=== PATIENT | male | born 1985 | race Caucasian/White ===

== ENCOUNTER 2018-01-03 09:36 | Emergency (ER) | payer OTHER, SELFPAY ==
[2018-01-03 09:39] VITALS: BP 153/91; PULSE 85; RESP 14; TEMP 36.3; O2SAT 98
--- NOTE | 2018-01-03 10:21 | W.ED.GENAD ---
Discharge Plan Disposition Patient Disposition: HOME Condition: Stable Discharge Details Chief Complaint: RespSymp Clinical Impression: Sinusitis, acute Primary Care Provider: Eric Dumont ED Provider: Abdifatah Aly Home Meds and New Rx's Prescriptions: New amoxicillin-pot clavulanate 875-125 mg tablet 1 tab PO BID Qty: 14 RF: 0 Continue acetaminophen [Acetaminophen Extra Strength] 500 MG tablet 500 mg PO Q6H PRN PRNRF: 0 fluoxetine 10 MG capsule 20 mg PO BID RF: 0 Discharge Instructions Instructions: Sinusitis (ED) Additional Instructions: Feel free to return to the emergency department for any new or worsening symptoms otherwise continue to take your iczt-nbd-nbforex cough cold and sinus medication. It is recommended that you begin the antibiotic only if you have persistent symptoms for a total of 10 days and begin running a new fever. Otherwise this is more than likely a viral infection and antibiotics will not treat your symptoms. Also it is recommended that you follow-up with your primary care provider in the next couple weeks for reassessment if you continue to have symptoms Referrals: Eric Dumont [Primary Care Provider] - (If not improving over the next 2-week) Discharge Data Discharge Date/Time-TO BE ENTERED AT DEPARTURE: 01/03/18 10:35 Medical Decision Making Patient presenting to the emergency department for chief complaint of sinus infection. Patient reports that he has had significant and worsening sinus pressure on the left side for the last 3 days. Patient denies any fever or chills. Patient reports previous sinus surgery due to recurrent sinus infections and that he always gets an antibiotic for this from his primary care doctor but he is recently moved back to the area and does not have a local PCP. Patient does state headaches along with the sinus pressure and that he has tried pkve-xdi-ehvkxcz pain medication. Patient is concerned due to having coworkers currently out of work and being unable to miss any work. Physical exam does show left sinus tenderness but no other worrisome exam findings are noted and patient is afebrile. Did discuss with patient etiology of viral illness which I suspect but patient stated severe concerned about missing work. I did inform patient that I was willing to write a pocket prescription for Augmentin but that he should not begin this until he has had symptoms for at least 10 days and if he begins running a fever. Patient was agreeable to this plan so that he would not have to miss any work to be reevaluated. Did offer to place patient on care management list for local primary care provider but he stated he would take care of this in the next couple weeks himself or see his primary care provider that he previously had. After discussion of diagnosis and plan of care patient is no further needs, questions, or concerns and states clear understanding to return to the emergency department for any worsening symptoms. HPI General Mode of arrival: ambulatory. Date/Time Provider Initiated Documentation: 01/03/18 10:00. Limitations to Documentation: no limitations. Information obtained by: patient and RN notes reviewed. History of Present Illness 32 year old M presents to the emergency department with the chief complaint of Sinus infection, described as moderate, with intensity rated at 6. Quality is described as aching and other (Pressure), and is localized to the head. Patient reports radiation to (Left). Patient started experiencing this day(s) (3) and it has been constant. No relieving factors improve symptom(s),3 No exacerbating factors reported . Patient did receive the following treatments prior to arrival, other (Oxth-dbc-bgcafzb medication) Related Data Home Medications Medication Instructions Recorded Confirmed acetaminophen [Acetaminophen Extra 500 mg PO Q6H PRN PRN 01/04/13 01/03/18 Strength] fluoxetine 20 mg PO BID 01/04/13 01/03/18 amoxicillin-pot clavulanate 1 tab PO BID #14 tab 01/03/18 Previous Rx's Medication Instructions Recorded amoxicillin-pot clavulanate 1 tab PO BID #14 tab 01/03/18 Allergies Allergy/AdvReac Type Severity Reaction Status Date / Time No Known Allergies Allergy Unverified 01/03/18 09:43 General Stated Complaint: RespSymp MARIETTA: 4 Review of Systems Constitutional Denies body ache(s), Denies chills, Denies fever(s), Reports headache(s) and Denies malaise Eyes Denies eye discharge ENT Denies ear discharge, Denies otalgia, Reports headache(s), Reports nasal congestion, Reports nasal discharge, Denies neck pain, Reports sinus pain, Reports sinus pressure, Denies sore throat and Denies throat swelling Cardiovascular Denies chest pain and Denies dyspnea Respiratory Reports cough and Denies dyspnea Musculoskeletal Denies joint swelling and Denies neck pain Integumentary/Breasts Denies rash Neurologic Reports headache(s) Allergic/Immunologic Denies throat swelling PFSH Medical History Recurrent sinusitis (Acute) Social History Smoking/Tobacco Use Status: Current every day Surgical History History of rhinoplasty (Acute) Exam Const General: cooperative, comfortable and no acute distress Orientation: alert and awake HENCO Head: normal to inspection, normocephalic and atraumatic Ears: hearing grossly normal bilaterally and TM's normal bilaterally General nose exam: external nose normal Face and sinus: face symmetric, no erythema and sinus tenderness frontal and maxillary Mouth: oral mucosae normal, no drooling, no muffled voice and no trismus Throat: posterior oropharynx normal Neck Neck: normal visual inspection, full ROM, no lymphadenopathy, no meningeal signs, trachea midline and supple Resp Effort & Inspection: normal respiratory effort, able to speak in complete sentences and no cough Auscultation: clear to auscultation bilaterally Cardio Rate: regular rate Rhythm: regular rhythm Heart Sounds: S1 normal, S2 normal, normal S1 and S2, no click, no gallops, no murmurs and no rubs Skin General skin exam: no rashes or lesions noted and dry skin (warm) Neuro General: alert, awake, oriented x3, gait normal and moves all extremities Cognition: normal cognition Speech: speech normal Course Vital Signs Temperature 36.3 C L 01/03/18 09:39 Pulse 85 01/03/18 09:39 Respiratory Rate 14 01/03/18 09:39 Blood Pressure 153/91 H 01/03/18 09:39 Pulse Oximetry 98 01/03/18 09:39 Temperature 36.3 C L 01/03/18 09:39 Temperature Source Temporal Artery Scan 01/03/18 09:39 Pulse 85 01/03/18 09:39 Respiratory Rate 14 01/03/18 09:39 Respiratory Effort Non-Labored 01/03/18 09:43 Respiratory Depth Normal 01/03/18 09:43 Blood Pressure 153/91 H 01/03/18 09:39 Blood Pressure Position Sitting 01/03/18 09:39 Pulse Oximetry 98 01/03/18 09:39 Oxygen Delivery Method Room Air 01/03/18 09:39 Oxygen Flow Rate 0 01/03/18 09:39 Pain Level 6 01/03/18 09:39
--- NOTE | 2018-01-03 10:29 | ED.GENADUL_ITS ---
Discharge Plan Disposition Patient Disposition: HOME Condition: Stable Discharge Details Chief Complaint: RespSymp Clinical Impression: Sinusitis, acute Primary Care Provider: Eric Dumont ED Provider: Abdifatah Aly Home Meds and New Rx's Prescriptions: New amoxicillin-pot clavulanate 875-125 mg tablet 1 tab PO BID Qty: 14 RF: 0 Continue acetaminophen [Acetaminophen Extra Strength] 500 MG tablet 500 mg PO Q6H PRN PRNRF: 0 fluoxetine 10 MG capsule 20 mg PO BID RF: 0 Discharge Instructions Instructions: Sinusitis (ED) Additional Instructions: Feel free to return to the emergency department for any new or worsening symptoms otherwise continue to take your rsgq-jdv-[id number] cough cold and sinus medication. It is recommended that you begin the antibiotic only if you have persistent symptoms for a total of 10 days and begin running a new fever. Otherwise this is more than likely a viral infection and antibiotics will not treat your symptoms. Also it is recommended that you follow-up with your primary care provider in the next couple weeks for reassessment if you continue to have symptoms Referrals: Eric Dumont [Primary Care Provider] - (If not improving over the next 2-week ) Discharge Data Discharge Date/Time-TO BE ENTERED AT DEPARTURE: 01/03/18 10:35 Medical Decision Making Patient presenting to the emergency department for chief complaint of sinus infection. Patient reports that he has had significant and worsening sinus pressure on the left side for the last 3 days. Patient denies any fever or chills. Patient reports previous sinus surgery due to recurrent sinus infections and that he always gets an antibiotic for this from his primary care doctor but he is recently moved back to the area and does not have a local PCP. Patient does state headaches along with the sinus pressure and that he has tried qtff-oub-dduoonr pain medication. Patient is concerned due to having coworkers currently out of work and being unable to miss any work. Physical exam does show left sinus tenderness but no other worrisome exam findings are noted and patient is afebrile. Did discuss with patient etiology of viral illness which I suspect but patient stated severe concerned about missing work. I did inform patient that I was willing to write a pocket prescription for Augmentin but that he should not begin this until he has had symptoms for at least 10 days and if he begins running a fever. Patient was agreeable to this plan so that he would not have to miss any work to be reevaluated. Did offer to place patient on care management list for local primary care provider but he stated he would take care of this in the next couple weeks himself or see his primary care provider that he previously had. After discussion of diagnosis and plan of care patient is no further needs, questions, or concerns and states clear understanding to return to the emergency department for any worsening symptoms. HPI General Mode of arrival: ambulatory . Date/Time Provider Initiated Documentation: 01/03/18 10:00 . Limitations to Documentation: no limitations . Information obtained by: patient and RN notes reviewed . History of Present Illness 32 year old M presents to the emergency department with the chief complaint of Sinus infection, described as moderate, with intensity rated at 6. Quality is described as aching and other (Pressure), and is localized to the head. Patient reports radiation to (Left). Patient started experiencing this day(s) (3) and it has been constant. No relieving factors improve symptom(s), 3 No exacerbating factors reported . Patient did receive the following treatments prior to arrival, other (Tkgg-wpp-zlocipn medication) Related Data Home Medications Medication Instructions Recorded Confirmed acetaminophen [Acetaminophen Extra 500 mg PO Q6H PRN PRN 01/04/13 01/03/18 Strength] fluoxetine 20 mg PO BID 01/04/13 01/03/18 amoxicillin-pot clavulanate 1 tab PO BID #14 tab 01/03/18 Previous Rx's Medication Instructions Recorded amoxicillin-pot clavulanate 1 tab PO BID #14 tab 01/03/18 Allergies Allergy/AdvReac Type Severity Reaction Status Date / Time No Known Allergies Allergy Unverified 01/03/18 09:43 General Stated Complaint: RespSymp [place]: 4 Review of Systems Constitutional Denies body ache(s), Denies chills, Denies fever(s), Reports headache(s) and Denies malaise Eyes Denies eye discharge ENT Denies ear discharge, Denies otalgia, Reports headache(s), Reports nasal congestion, Reports nasal discharge, Denies neck pain, Reports sinus pain, Reports sinus pressure, Denies sore throat and Denies throat swelling Cardiovascular Denies chest pain and Denies dyspnea Respiratory Reports cough and Denies dyspnea Musculoskeletal Denies joint swelling and Denies neck pain Integumentary/Breasts Denies rash Neurologic Reports headache(s) Allergic/Immunologic Denies throat swelling PFSH Medical History Recurrent sinusitis (Acute) Social History Smoking/Tobacco Use Status: Current every day Surgical History History of rhinoplasty (Acute) Exam Const General: cooperative, comfortable and no acute distress Orientation: alert and awake HENPA Head: normal to inspection, normocephalic and atraumatic Ears: hearing grossly normal bilaterally and TM's normal bilaterally General nose exam: external nose normal Face and sinus: face symmetric, no erythema and sinus tenderness frontal and maxillary Mouth: oral mucosae normal, no drooling, no muffled voice and no trismus Throat: posterior oropharynx normal Neck Neck: normal visual inspection, full ROM, no lymphadenopathy, no meningeal signs , trachea midline and supple Resp Effort & Inspection: normal respiratory effort, able to speak in complete sentences and no cough Auscultation: clear to auscultation bilaterally Cardio Rate: regular rate Rhythm: regular rhythm Heart Sounds: S1 normal, S2 normal, normal S1 and S2, no click, no gallops, no murmurs and no rubs Skin General skin exam: no rashes or lesions noted and dry skin (warm) Neuro General: alert, awake, oriented x3, gait normal and moves all extremities Cognition: normal cognition Speech: speech normal Course Vital Signs Temperature 36.3 C L 01/03/18 09:39 Pulse 85 01/03/18 09:39 Respiratory Rate 14 01/03/18 09:39 Blood Pressure 153/91 H 01/03/18 09:39 Pulse Oximetry 98 01/03/18 09:39 Temperature 36.3 C L 01/03/18 09:39 Temperature Source Temporal Artery Scan 01/03/18 09:39 Pulse 85 01/03/18 09:39 Respiratory Rate 14 01/03/18 09:39 Respiratory Effort Non-Labored 01/03/18 09:43 Respiratory Depth Normal 01/03/18 09:43 Blood Pressure 153/91 H 01/03/18 09:39 Blood Pressure Position Sitting 01/03/18 09:39 Pulse Oximetry 98 01/03/18 09:39 Oxygen Delivery Method Room Air 01/03/18 09:39 Oxygen Flow Rate 0 01/03/18 09:39 Pain Level 6 01/03/18 09:39
== END 2018-01-03 10:35 | disposition home or self-care (01) ==
LOC: ER 10:39
PROVIDERS: Emergency Provider Nurse Practitioner Family; PCP Neuromusculoskeletal Medicine & OMM
DX: J01.90 Acute sinusitis, unspecified (principal)
CPT/HCPCS: 99283

== ENCOUNTER 2018-06-08 17:07 | Emergency (ER) | payer BC, SELFPAY ==
[2018-06-08 17:13] VITALS: PULSE 75; RESP 18; TEMP 36.7; O2SAT 96
--- NOTE | 2018-06-08 17:27 | ED.GENADUL_ITS ---
Discharge Plan Disposition Patient Disposition: HOME Condition: Improving Discharge Details Chief Complaint: RespSymp Clinical Impression: Acute right otitis media Primary Care Provider: Eric Dumont ED Provider: Carlos Zheng Home Meds and New Rx's Prescriptions: New cefdinir 300 mg capsule 300 mg PO Q12H 10 Days Qty: 20 RF: 0 guaifenesin [Mucinex] 600 mg tablet extended release 12hr 600 mg PO Q12H PRNQty: 10 RF: 0 Continued acetaminophen [Acetaminophen Extra Strength] 500 MG tablet 500 mg PO Q6H PRN PRNRF: 0 fluoxetine 10 MG capsule 20 mg PO BID RF: 0 Discontinued amoxicillin-pot clavulanate 875-125 mg tablet 1 tab PO BID Qty: 14 RF: 0 Discharge Instructions Instructions: Otitis Media (ED) Additional Instructions: Continue Tylenol and/or ibuprofen as needed for pain. Benadryl at nighttime to aid in decongestion. Take Mucinex and antibiotic as prescribed. Follow-up with regular doctor if not improving in 1 week's time. Return for any acute concern Medical Decision Making 33-year-old male presents from home complaining of 10 days of cough, congestion, right ear pain, persistent production of yellow and green sputum with associated sinus pressure similar to previous sinus infections. He is on day 7 of a course of Augmentin with minimal improvement. He is afebrile and well-appearing. Exam is consistent with right otitis media and maxillary sinusitis. Will switch to cephalosporin. Patient will continue decongestion. He will prescribe Mucinex as well. He stable and appropriate for outpatient management. HPI General Mode of arrival: ambulatory . Date/Time Provider Initiated Documentation: 06/08/18 17:17 . Limitations to Documentation: no limitations . Information obtained by: patient . History of Present Illness 33 year old M presents to the emergency department with the chief complaint of Sinus pressure, right ear pain, productive cough, described as moderate and similar to prior episodes, Quality is described as dull and constant, and is localized to the head. Patient reports no radiation. Patient started experiencing this day(s) and it has been constant. No relieving factors improve symptom(s), No exacerbating factors reported . Patient notes denies fever/chills. Patient did receive the following treatments prior to arrival, other (Finished 7 days of Augmentin) Related Data Home Medications Medication Instructions Recorded Confirmed acetaminophen [Acetaminophen Extra 500 mg PO Q6H PRN PRN 01/04/13 06/08/18 Strength] fluoxetine 20 mg PO BID 01/04/13 06/08/18 cefdinir 300 mg PO Q12H 10 Days #20 cap 06/08/18 guaifenesin [Mucinex] 600 mg PO Q12H PRN #10 tab 06/08/18 Previous Rx's Medication Instructions Recorded cefdinir 300 mg PO Q12H 10 Days #20 cap 06/08/18 guaifenesin [Mucinex] 600 mg PO Q12H PRN #10 tab 06/08/18 Allergies Allergy/AdvReac Type Severity Reaction Status Date / Time No Known Allergies Allergy Unverified 01/03/18 09:43 General Stated Complaint: RespSymp [place]: 4 Review of Systems Review of Systems 6 systems reviewed and otherwise negative [facility] Medical History Recurrent sinusitis (Acute) Surgical History History of rhinoplasty (Acute) Social History Smoking and Tabacco status: Current every day Exam Narrative Exam Narrative: GEN: awake, alert, oriented 3. Pleasant, well groomed, interactive. HEAD: Normocephalic, atraumatic ENT: Mucous membranes moist, oropharynx unremarkable, External ear exam unremarkable. Right tympanic membrane distended and erythematous with loss of light reflex. Bilateral maxillary sinus tenderness to percussion EYES: PERRL, EOMI NECK: Full ROM, no ISSA, no menigismus CHEST/RESP: Nontender, clear to auscultation bilateral, no wheeze/rhonchi/rales CARDIOVASCULAR: RRR, no murmur, rub rex. 2+ Rad pulse bilateral ABDOMEN: Soft, nontender, no mass. +Bowel sounds EXT: Full ROM, no edema, no rash Neuro: Grossly normal neurologic exam, conversant, interactive. Psych: Speech fluent, thoughts congruent, affect normal Course Vital Signs Temperature 36.7 C 06/08/18 17:13 Pulse 75 06/08/18 17:13 Respiratory Rate 18 06/08/18 17:13 Pulse Oximetry 96 06/08/18 17:13 Temperature 36.7 C 06/08/18 17:13 Temperature Source Skin 06/08/18 17:13 Pulse 75 06/08/18 17:13 Respiratory Rate 18 06/08/18 17:13 Respiratory Effort Non-Labored 06/08/18 17:16 Blood Pressure Position Sitting 06/08/18 17:13 Pulse Oximetry 96 06/08/18 17:13 Oxygen Delivery Method Room Air 06/08/18 17:13 Oxygen Flow Rate 0 06/08/18 17:13 Pain Level 4 06/08/18 17:13
[2018-06-08 17:31] VITALS: BP 145/78; PULSE 75; RESP 18; TEMP 36.7; O2SAT 96
== END 2018-06-08 17:30 | disposition home or self-care (01) ==
PROVIDERS: Emergency Provider Emergency Medicine; PCP Neuromusculoskeletal Medicine & OMM
DX: H66.91 Otitis media, unspecified, right ear (principal); R05 Cough
CPT/HCPCS: 99283

== ENCOUNTER 2018-07-06 12:44 | Emergency (ER) | payer BC, SELFPAY ==
[2018-07-06 12:50] VITALS: BP 153/94; PULSE 72; RESP 16; TEMP 36.3; O2SAT 97
--- NOTE | 2018-07-06 13:12 | ED.GENADUL_ITS ---
Discharge Plan Disposition Patient Disposition: HOME Condition: Good Discharge Details Chief Complaint: GenMedical Clinical Impression: Hemorrhoids, internal Primary Care Provider: Eric Dumont ED Provider: Cleve Woods Home Meds and New Rx's Prescriptions: New docusate sodium [Colace] 100 mg capsule 100 mg PO BID Qty: 14 RF: 0 hydrocortisone [Anusol-HC] 2.5 % cream with perineal applicator 1 applic MA QD-BID PRN (Reason: hemorrhoids) Qty: 28.35 RF: 0 No Action fluoxetine 10 MG capsule 20 mg PO BID RF: 0 Discharge Instructions Instructions: Hemorrhoids (ED) Additional Instructions: Please take the medication as directed. Please perform a sitz bath as often as possible. Please take stool softeners to avoid any constipation. If you notice any worsening of the pain, swelling, fever, chills, please return immediately for reevaluation. If you notice any worsening of your symptoms, or any new symptoms such as vomiting, diarrhea, fever, chills, shortness of breath, chest pain, numbness, weakness, or fainting , please return immediately to the emergency department for reevaluation. Please follow up with your primary care provider as soon as possible for reassessment and reevaluation. As always, it was a pleasure participating in your medical care today. Referrals: Eric Dumont [Primary Care Provider] - Medical Decision Making This is a 33-year-old male with no significant past medical history who presents for evaluation of rectal pain. Pain is been present for the last 3-4 days, pain started with initially hard stools which have now become loose. Pain radiates slightly into the abdomen. He denies any fever or chills. He notes a constant sensation of feeling like he has to defecate. He denies any red flags of rectal intercourse, or rectal penetration. Physical exam demonst rates notable firmness on the right lateral aspect of the rectum extending up past the anal sphincter. No evidence of active discharge at this time. We will get a CT scan to rule out any fistula or extending rectal abscess. 2:[address] scan results have returned and demonstrate no evidence of acute process, or infection or abscess. Signs and symptoms are thus concerning for internal thrombosed hemorrhoid. Due to the depth I do not think surgical excision here in the ED is appropriate at this time, we will set up outpatient surgical management. Will recommend sitz baths, steroid cream, and close follow-up with surgery. I have extensively reviewed the treatment plan and discharge instructions with the patient. I have addressed all patient concerns at this time. The patient was made aware of what symptoms to monitor for that would warrant a return to the emergency department. Discussed the plan with the patient, they demonstrate verbal understanding and agreement with our assessment and plan at this time. HPI General Date/Time Provider Initiated Documentation: 07/06/18 13:00 . HPI Narrative: This is a 33-year-old male who presents for chief complaint of pain in my taint patient states that for the last 4 days he has had rectal pain, he initially had a hard stool, but now his stool has become somewhat loose. Physical feeling like he has to have a bowel movement. He denies any fever or chills. The pain radiates into his abdomen. He denies any vomiting or diarrhea. He denies any other complaints. He denies having had history of symptoms like this in the past. Sexual orientation is heterosexual, he denies any rectal intercourse, he denies any penetration of his rectum. No other complaints at this time. No other modifying factors Related Data Home Medications Medication Instructions Recorded Confirmed fluoxetine 20 mg PO BID 01/04/13 07/06/18 docusate sodium [Colace] 100 mg PO BID #14 cap 07/06/18 hydrocortisone [Anusol-HC] 1 applic MA QD-BID PRN #28.35 gm 07/06/18 Previous Rx's Medication Instructions Recorded docusate sodium [Colace] 100 mg PO BID #14 cap 07/06/18 hydrocortisone [Anusol-HC] 1 applic MA QD-BID PRN #28.35 gm 07/06/18 Allergies Allergy/AdvReac Type Severity Reaction Status Date / Time No Known Allergies Allergy Unverified 01/03/18 09:43 General Stated Complaint: GenMedical [place]: 3 Review of Systems Review of Systems All systems reviewed & are unremarkable except as noted in HPI and below PFSH Social History Smoking/Tobacco Use Status: Current every day Alcohol Intake: current Alcohol Intake frequency: a few times a week Drug use: Never Do you feel safe at home: Yes Do you feel safe in your relationship?: Yes Exam Narrative Exam Narrative: 1.Const: Well-nourished, Well-developed, appearing stated age 2.Eyes: PERRL, no conjunctival injection, and symmetrical lids. 3.ENT: Atraumatic external nose and ears. Moist MM. Neck: Symmetric, trachea midline, No thyromegaly. 4.CVS: +S1/S2, No murmurs or gallops. Peripheral pulses 2+ and equal in all extremities. Brisk capillary refill in all extremities. 5.RESP: Unlabored respiratory effort. Clear to auscultation bilaterally. No wheezes rales or rhonchi 6.GI: Soft, Nontender/Nondistended, No hepatosplenomegaly. No guarding or rebound. Rectal exam demonstrates mild to moderate tenderness at the it extends past the anal sphincter. No evidence of discharge or drainage. 7.MSK: Normocephalic/Atraumatic, Extremities w/o deformity or ttp No cyanosis or clubbing, Normal movement of all extremities 8.Skin: Warm, Dry. No rashes or lesions. 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 Sensation grossly intact, no focal neurologic deficits. 10.Psych: (AAO) x3. Appropriate mood and affect Course Vital Signs Temperature 36.3 C L 07/06/18 12:50 Pulse 72 07/06/18 12:50 Respiratory Rate 16 07/06/18 12:50 Blood Pressure 153/94 H 07/06/18 12:50 Pulse Oximetry 97 07/06/18 12:50 Temperature 36.3 C L 07/06/18 12:50 Temperature Source Skin 07/06/18 12:50 Pulse 72 07/06/18 12:50 Respiratory Rate 16 07/06/18 12:50 Respiratory Effort Non-Labored 07/06/18 12:57 Blood Pressure 153/94 H 07/06/18 12:50 Blood Pressure Position Sitting 07/06/18 12:50 Pulse Oximetry 97 07/06/18 12:50 Oxygen Delivery Method Room Air 07/06/18 12:50 Oxygen Flow Rate 0 07/06/18 12:50 Pain Level 6 07/06/18 12:50
[2018-07-06 13:19] LABS: Bilirubin Negative (Negative); Blood Negative (Negative); Clarity Clear; Glucose Negative (Negative); Ketones Negative (Negative); Leukocyte Esterase Negative (Negative); Nitrite Negative (Negative); Specific Gravity 1.025 (1.005-1.025); Urobilinogen 0.2 EU/dL (Up TO 0.2)
--- NOTE | 2018-07-06 13:51 | DI.CT_ITS ---
SYMPTOMS/DIAGNOSIS: RECTAL PAIN, ? RECTAL ABSCESS CT EXAMINATION OF THE ABDOMEN AND PELVIS: The study was carried out with an intravenous injection of 125 cc of Omnipaque 350. The lung bases are unremarkable. The liver, gallbladder, pancreas, spleen, kidneys and adrenals are unremarkable. There is no evidence of bowel obstruction. There is nothing to suggest an acute appendix. There is no evidence of diverticulosis or diverticulitis. There is nothing to suggest a rectal abscess. There is no evidence of free air or free fluid in the intraperitoneal space. The bladder is suboptimally distended. The reproductive organs as visualized appear intact. SUMMARY: No evidence of a rectal abscess. No acute abnormality is demonstrated.
[2018-07-06] MEDS: Omnipaque 350 MG/ML 50 ML BTL IJ (13:55)
[2018-07-06] MEDS: Omnipaque 350 MG/ML 100 ML BTL IJ (13:55)
[2018-07-06 14:05] LABS: Abs Immature Grans 0.01 k/cumm (0.0-0.09); Absolute Basophil Count 0.02 k/cumm (0.0-0.2); Absolute Eosinophil Count 0.05 k/cumm (0.0-0.7); Absolute Lymphocyte Count 1.72 k/cumm (1.2-3.4); Absolute Monocyte Count 0.43 k/cumm (0.11-0.7); Absolute Neutrophil Count 4.77 k/cumm (1.2-6.7); Basophils % 0.3; Eosinophils % 0.7; HCT 43.2 % (40.0-50.0); HGB 14.9 g/dL (13.5-17.5); Immature Grans % 0.1; Lymphocytes % 24.6; Mean Corp. HGB Concentration 34.5 g/dL (32.0-36.0); Mean Corpuscular Hemoglobin 28.1 pg (27.0-33.0); Mean Corpuscular Volume 81.5 fL (80-95); Mean Platelet Volume 11.6 fL (8.0-11.0); Monocytes % 6.1; Neutrophils % 68.2; Platelet Count 191 x1000/uL (130-400); RBC Distribution Width 13.6 % (11.8-14.1)
[2018-07-06 14:22] VITALS: RESP 16
[2018-07-06 14:47] VITALS: BP 153/94; PULSE 72; RESP 16; TEMP 36.6; O2SAT 97
[2018-07-06 15:02] LABS: ALT 34 U/L (12-78); AST 20 U/L (15-37); Albumin 3.9 g/dL (3.4-5.0); Alkaline Phosphatase 78 U/L (46-116); Anion Gap 11.4 mmol/L (3-11); BUN 13 mg/dL (7-18); Bilirubin, Total 0.5 mg/dL (0.2-1.0); CO2 25.6 mmol/L (21.0-32.0); CREATININE 0.77 mg/dL (0.70-1.30); Chloride 104 mmol/L (98-107); Glucose 85 mg/dL (70-100); Potassium 4.1 mmol/L (3.5-5.1); Sodium 141 mmol/L (136-145); Total Protein 7.3 g/dL (6.4-8.2)
[2018-07-06 15:30] LABS: Calcium 8.6 mg/dL (8.5-10.1)
--- NOTE | 2018-07-07 10:30 | PDOC.ERCMPRO ---
Care Management Progress Note 07/07-Dr. Woods requested assistance with a surgical f/u in 1-2 weeks for hemorrhoid. Referral faxed to [facility] this am.
--- NOTE | 2018-07-07 10:31 | CMPROGNOTE_ITS ---
Care Management Progress Note 07/07-Dr. Woods requested assistance with a surgical f/u in 1-2 weeks for hemorrhoid. Referral faxed to [facility] this am.
== END 2018-07-06 14:46 | disposition home or self-care (01) ==
PROVIDERS: Emergency Provider Student in an Organized Health Care Education/Training Program; PCP Neuromusculoskeletal Medicine & OMM
DX: K64.8 Other hemorrhoids (principal)
CPT/HCPCS: 36415; 80053; 99285; 74177; 81003; 85025; 99284; J3490; Q9967

== ENCOUNTER 2019-03-24 10:37 | Emergency (ER) | payer OTHER, SELFPAY ==
[2019-03-24 10:43] VITALS: BP 152/97; PULSE 72; RESP 16; TEMP 36.5; O2SAT 96
--- NOTE | 2019-03-24 11:09 | W.ED.GENAD ---
Discharge Plan Disposition Patient Disposition: HOME Discharge Details Chief Complaint: Nk/Back Pain Clinical Impression: Acute lumbar myofascial strain Primary Care Provider: Eric Dumont ED Provider: Armando Aguillon Home Meds and New Rx's Prescriptions: New cyclobenzaprine 10 mg tablet 10 mg PO HS Qty: 10 RF: 0 No Action fluoxetine 10 MG capsule 60 mg PO HS RF: 0 bupropion HCl 100 mg Tablet Sustained-Release 12 Hr 100 mg PO HS RF: 0 Discharge Instructions Instructions: Low Back Strain (ED) Additional Instructions: You most likely have a muscle strain involving the lower back. Supportive care including ice and heat over the area as indicated. Start taking ibuprofen 200 m tabs every 8 hours for pain. Avoid heavy lifting with your back. Follow-up should your symptoms worsen or you develop severe numbness or tingling in the feet. Stand Alone Forms: Work Release Referrals: Eric Dumont [Primary Care Provider] - 1 week Medical Decision Making This is a nontoxic-appearing 34-year-old male presenting to the emergency department with left lower back pain. He does have some radiculopathy down his left leg. Straight leg raise negative. Neurovascular intact on physical exam. He does have noticeable tenderness over the paraspinal musculature of the left lower lumbar spine. No midline tenderness. Discussed supportive care along with the use of [id number] NSAIDs. Will send home with a prescription for cyclobenzaprine as he does describe some spasms in his low back.. Return precautions provided he will follow-up with his primary care provider if symptoms persist. HPI General Date/Time Provider Initiated Documentation: 03/24/19 11:09. HPI Narrative: Patient is a 34-year-old male with a significant for chronic back pain who presents to the emergency department for left lower back pain status post lifting injury while at work. He locates the pain along the lower left lumbar spine. He has had some tingling in his left foot associated with his pain. He denies any bowel or fecal incontinence. Taken anything for the pain. Related Data Home Medications Medication Instructions Recorded Confirmed fluoxetine 60 mg PO HS 01/04/13 03/24/19 bupropion HCl 100 mg PO HS 03/24/19 03/24/19 cyclobenzaprine 10 mg PO HS #10 tab 03/24/19 Previous Rx's Medication Instructions Recorded cyclobenzaprine 10 mg PO HS #10 tab 03/24/19 Allergies Allergy/AdvReac Type Severity Reaction Status Date / Time No Known Allergies Allergy Unverified 03/24/19 10:57 General Stated Complaint: Nk/Back Pain [place]: 3 Review of Systems Gastrointestinal Gastrointestinal: Denies fecal incontinence Genitourinary Genitourinary: Denies urinary incontinence Musculoskeletal Musculoskeletal: Reports back pain, Denies numbness and Reports tingling Neurologic Neurologic: Denies numbness, Denies other visual disturbances, Denies sensory deficit, Reports tingling and Denies paresthesias Hematologic/Lymphatic Hematologic/Lymphatic: Denies easy bleeding and Denies easy bruising [facility] Medical History Internal thrombosed hemorrhoids (Acute) Recurrent sinusitis (Acute) Surgical History History of rhinoplasty (Acute) Social History Smoking/Tobacco Use Status: Current every day Alcohol Intake: current Alcohol Intake frequency: a few times a week Drug use: Never Do you feel safe at home: Yes Do you feel safe in your relationship?: Yes Exam Const General: cooperative, healthy appearing, comfortable and no acute distress Orientation: alert, awake and oriented x3 HENMT Head: normal to inspection Chest Chest: normal inspection of the chest Resp Effort & Inspection: normal respiratory effort and able to speak in complete sentences Cardio Pulses: normal peripheral pulses Back/Spine/Pelvis Thoracic/Lumbar Spine: pain with thoraco-lumbar ROM, paraspinal tenderness, thoraco-lumbar spasm, No thoracic spinal tenderness, No lumbar spinal tenderness and No straight leg raise positive Neuro Motor: muscle tone normal throughout Sensory Exam: no sensory deficits noted DTR's: Rt Patellar: 2+ and Lt Patellar: 2+ Course Vital Signs Vital signs: Vital Signs Temperature 36.5 C 03/24/19 10:43 Pulse 72 03/24/19 10:43 Respiratory Rate 16 03/24/19 10:43 Blood Pressure 152/97 H 03/24/19 10:43 Pulse Oximetry 96 03/24/19 10:43 Temperature 36.5 C 03/24/19 10:43 Temperature Source Temporal Artery Scan 03/24/19 10:43 Pulse 72 03/24/19 10:43 Respiratory Rate 16 03/24/19 10:43 Respiratory Effort Non-Labored 03/24/19 10:54 Blood Pressure 152/97 H 03/24/19 10:43 Blood Pressure Position Sitting 03/24/19 10:43 Pulse Oximetry 96 03/24/19 10:43 Oxygen Delivery Method Room Air 03/24/19 10:43 Oxygen Flow Rate 0 03/24/19 10:43 Pain Level 5 03/24/19 10:43 Comment 03/24/19 10:43
== END 2019-03-24 11:15 | disposition home or self-care (01) ==
PROVIDERS: Emergency Provider Physician Assistant; PCP Neuromusculoskeletal Medicine & OMM
DX: M54.5 Low back pain (principal); G89.29 Other chronic pain; S39.012A Strain of muscle, fascia and tendon of lower back, initial encounter; X50.0XXA Overexertion from strenuous movement or load, initial encounter; R20.2 Paresthesia of skin
CPT/HCPCS: 99283

== ENCOUNTER 2019-05-02 08:24 | Emergency (ER) | payer BC, SELFPAY ==
[2019-05-02 08:28] VITALS: BP 150/93; PULSE 87; RESP 18; TEMP 37.3; O2SAT 95
[2019-05-02 08:34] VITALS: RESP 18
--- NOTE | 2019-05-02 08:36 | ED.GENADUL_ITS ---
Discharge Plan Disposition Patient Disposition: HOME Condition: Stable Discharge Details Chief Complaint: GenMedical Clinical Impression: Sinusitis, Pharyngitis Primary Care Provider: Eric Dumont ED Provider: Jovita Bishop Home Meds and New Rx's Prescriptions: New amoxicillin-pot clavulanate [Augmentin] 875-125 mg tablet 1 tab PO BID 10 Days Qty: 20 RF: 0 prednisone 20 mg tablet 40 mg PO DAILY 3 Days Qty: 6 RF: 0 Continued fluoxetine 10 MG capsule 60 mg PO HS RF: 0 bupropion HCl 100 mg Tablet Sustained-Release 12 Hr 100 mg PO HS RF: 0 Discharge Instructions Instructions: Pharyngitis (ED), Sinusitis (ED) Additional Instructions: Alternate tylenol and motrin as needed and directed for pain. Drink plenty of fluids and get plenty of rest. Continue your saline nose spray, Colbert pot and humidifier as needed. Take the steroids until finished. If your symptoms do not improve or worsen over the next 2 days, you can start the antibiotics. Follow-up with your primary care doctor in 1 week. If your symptoms persist or worsen, consider follow-up with the Ear, Nose and Throat doctor. Return to the emergency department with any worsening or new concerning symptoms. Stand Alone Forms: Work Release Referrals: Peterson Langford MD [ [facility] STAFF PHYSICIAN] - Discharge Data Discharge Date/Time-TO BE ENTERED AT DEPARTURE: 05/02/19 10:29 Discharge Physician: Jovita Bishop Medical Decision Making 0845 -- 34-year-old male with a history of chronic sinus infections and septoplasty in 2012 presents with nasal congestion and sinus pain, periorbital headaches, sore throat, green blood-tinged nasal discharge and occasional blood- tinged mucus with cough for the past 3 weeks. States his sore throat is bothering him the most. He states it feels swollen when he swallows but he is able to keep down fluids and solids. He admits to occasional sweats but denies any known fever. He is a tobacco smoker. He states his headache is around his eyes and he occasionally has dizziness and feels off balance. He denies any significant cough but does admit to occasional shortness of breath. He does admit to blowing out dry blood-tinged mucus, which appears likely due to dry air at home. I suspect his intermittent blood-tinged mucus with cough is likely from the nares as he has clear lungs and does not complain of consistent shortness of breath. He has bilateral sinus tenderness with significant bilateral tonsillar edema but without exudates. Bilateral TMs appear erythematous but not dull or bulging. Differential diagnosis includes sinusitis, pharyngitis. Will obtain a rapid strep as well as a chest x-ray to rule out pneumonia. Presentation not consistent with tuberculosis or PE, patient denies any recent travel. Will give a dose of prednisone. He took Aleve prior to arrival. 909 --rapid strep negative. Chest x-ray negative. Discussed with patient that his symptoms could be due to sinusitis causing tonsillar edema from postnasal drainage. Advised that a throat culture was sent. Will treat with steroids to help with tonsillar edema and sinus inflammation. He was also given an antibiotic prescription as his symptoms have been lingering for a few weeks. He is advised that he could wait a few days to see if symptoms improve with steroids and then start antibiotics if no improvement. He was advised to follow-up with his primary care doctor for evaluation and for referral to ENT if symptoms persist. Usual and customary return precautions given prior to discharge. HPI General Mode of arrival: ambulatory . Date/Time Provider Initiated Documentation: 05/02/19 08:25 . Limitations to Documentation: no limitations . Information obtained by: patient . History of Present Illness 34 year old M presents to the emergency department with the chief complaint of Nasal congestion, sinus pain, sore throat, headache, described as moderate, and is localized to the head and face. Patient started experiencing this week(s) (3) and it has been constant. No relieving factors improve symptom(s), No exacerbating factors reported . Patient notes cough (Occasionally coughs up blood-tinged sputum, but otherwise denies any significant cough), headaches (Frontal, around eyes) and shortness of breath (Intermittent); denies fever/chills and nausea/vomiting. Patient did receive the following treatments prior to arrival, NSAID (Aleve 1 hour prior to arrival) Related Data Home Medications Medication Instructions Recorded Confirmed fluoxetine 60 mg PO HS 01/04/13 05/02/19 bupropion HCl 100 mg PO HS 03/24/19 05/02/19 amoxicillin-pot clavulanate 1 tab PO BID 10 Days #20 tab 05/02/19 [Augmentin] prednisone 40 mg PO DAILY 3 Days #6 tab 05/02/19 Previous Rx's Medication Instructions Recorded amoxicillin-pot clavulanate 1 tab PO BID 10 Days #20 tab 05/02/19 [Augmentin] prednisone 40 mg PO DAILY 3 Days #6 tab 05/02/19 Allergies Allergy/AdvReac Type Severity Reaction Status Date / Time No Known Allergies Allergy Unverified 05/02/19 08:32 General Stated Complaint: GenMedical [place]: 3 Review of Systems All systems reviewed & are unremarkable except as noted in HPI and below Constitutional Constitutional: Reports as per HPI, Denies chills, Denies fever(s) and Reports headache(s) Eyes Eyes: Denies blurry vision ENT Ears, Nose, Mouth, and Throat: Reports dizziness (intermittent), Reports headache(s), Reports nasal congestion, Reports sore throat and Denies throat swelling Cardiovascular Cardiovascular: Denies chest pain and Denies dyspnea Respiratory Respiratory: Denies cough, Reports hemoptysis and Denies dyspnea Gastrointestinal Gastrointestinal: Denies abdominal pain, Denies diarrhea and Denies vomiting Genitourinary Genitourinary: Denies hematuria and Denies dysuria Musculoskeletal Musculoskeletal: Denies back pain and Denies numbness Integumentary/Breasts Skin/Breast: Denies lesions and Denies rash Neurologic Neurologic: Reports dizziness (intermittent), Reports headache(s), Denies focal weakness and Denies numbness Allergic/Immunologic Allergic/Immunologic: Denies throat swelling [facility] Medical History Internal thrombosed hemorrhoids (Acute) Recurrent sinusitis (Acute) Surgical History (Updated 05/02/19 @ 08:38 by Jovita Bishop DO) History of nasal septoplasty (Acute) Social History Smoking/Tobacco Use Status: Current every day Tobacco Type: cigarettes Alcohol Intake: current Alcohol Intake frequency: a few times a week Drug use: Never Substance use type: does not use Do you feel safe at home: Yes Do you feel safe in your relationship?: Yes Exam Const General: cooperative and healthy appearing Orientation: alert and awake HENMT Head: normal to inspection Ears: hearing grossly normal bilaterally, external ears normal and TM's normal bilaterally General nose exam: external nose normal Face and sinus: normal facial exam and sinus tenderness frontal (left ) and maxillary (bilateral) Mouth: oral mucosae normal Teeth and gingiva: dentition normal Throat: uvula midline and posterior oropharynx abnormal edema (significant b/l tonsillar edema, near touching); no exudates Eyes General: appearance normal, both eyes and all related structures Eyelids: eyelids normal Pupils: PERRL EOM: EOM intact bilaterally Neck Neck: normal visual inspection, no meningeal signs, trachea midline, supple, no anterior neck swelling and No submandibular swelling Lymphatic: no lymphadenopathy noted Chest Chest: normal inspection of the chest Resp Effort & Inspection: normal respiratory effort and able to speak in complete sentences Auscultation: clear to auscultation bilaterally Cardio Rate: regular rate Rhythm: regular rhythm GI Inspection: normal to inspection Palpation: soft, not firm, no guarding, no hepatosplenomegaly, no masses and nontender Auscultation: normal bowel sounds Skin General skin exam: no rashes or lesions noted Neuro General: alert and awake Cognition: normal cognition Speech: speech normal Gait: normal gait Motor: muscle tone normal throughout Sensory Exam: no sensory deficits noted Extrem General: normal to inspection, full ROM and normal capillary refill Psych Appearance: grossly normal Mental Status: mental status grossly normal Speech and Movement: speech and movement normal Affect: normal affect Thought Process: normal Course Vital Signs Vital signs: Vital Signs Pulse 87 05/02/19 08:28 Respiratory Rate 18 05/02/19 08:28 Blood Pressure 150/93 H 05/02/19 08:28 Pulse Oximetry 95 05/02/19 08:28 Pulse 87 05/02/19 08:28 Respiratory Rate 18 05/02/19 08:28 Blood Pressure 150/93 H 05/02/19 08:28 Pulse Oximetry 95 05/02/19 08:28 Oxygen Delivery Method Room Air 05/02/19 08:28 Oxygen Flow Rate 0 05/02/19 08:28 Pain Level 1 05/02/19 08:28
[2019-05-02] MEDS: predniSONE 20 MG TAB 60 MG PO (09:10)
--- NOTE | 2019-05-02 09:21 | DI.RAD_ITS ---
EXAM: XR CHEST 2V PA LATERAL INDICATION: cough with blood, r/o pneumonia. COMPARISON: No exams were available for comparison TECHNIQUE: 2D digital imaging was performed. FINDINGS: Heart size is normal. There is mild respiratory motion. The lungs are suboptimally inflated. No in filtrate or effusion is seen. IMPRESSION: Limited exam. No acute abnormality.
== END 2019-05-02 10:29 | disposition home or self-care (01) ==
PROVIDERS: Emergency Provider Physician Assistant; PCP Neuromusculoskeletal Medicine & OMM
DX: R51 Headache (principal); J02.9 Acute pharyngitis, unspecified; J01.90 Acute sinusitis, unspecified; R05 Cough; F17.210 Nicotine dependence, cigarettes, uncomplicated
CPT/HCPCS: 87880; 99283; 71046; 87081; 99284; J7512

== ENCOUNTER 2020-02-03 11:59 | Emergency (ER) | payer SELFPAY ==
[2020-02-03 12:03] VITALS: BP 138/83; PULSE 89; TEMP 34.6; O2SAT 96
--- NOTE | 2020-02-03 12:32 | W.ED.GENAD ---
Discharge Plan Disposition Patient Disposition: HOME Condition: Stable Discharge Details Clinical Impression: Abdominal pain Primary Care Provider: Eric Dumont ED Provider: Keven Johnson Home Meds and New Rx's Prescriptions: New ondansetron 4 mg tablet,disintegrating 4 mg PO Q8H PRN (Reason: nausea and vomiting) Qty: 30 RF: 0 Continued fluoxetine 10 MG capsule 60 mg PO HS RF: 0 Discharge Instructions Instructions: Abdominal Pain (ED) Additional Instructions: your blood work and cat scan did not show a clear etiology for your symptoms, there was no emergent or concerning findings seen on the CT or lab work follow up with your primary care provider if symptoms continue in a week if you have severe worsening pain, persistent vomit or feel more ill return to the emergency department Stand Alone Forms: Work Release Medical Decision Making 35 yo male with hx of prior appendectomy comes in with chief complaint of 2 weeks of right sided abdominal pain and n/v, last threw up this morning per patient. HE denies fevers but has had some sweats intermittently, no chest pain or dyspnea. He drinks occasionally otherwise no other drug use. Arrives HD stable with pain in the ruq without guarding or rebound, has some mid abdominal tenderness as well, no testicle pain or swelling. Could be biliary colic vs cholecystitis vs pancreatitis vs sbo, will obtain labs and imaging and reassess. pt remains stable, no guarding or rebound tenderness still. Labs unremarkable, ct shows nonspecific fat infiltrate of the pancreas and possible small areas of inflammation with normal lipase. Discussed findings with patient, no clear specific etiology for his symptoms but reassuring lab work and imaging. Is comfortable with d/c and f/u with pcp if symptoms continue and return precautions given Differential Diagnosis Differential Diagnosis: cholecystitis, biliary colic, sbo Medical Records Medical records reviewed: Yes I reviewed the patient's medical records. Imaging Data Radiologic Study: Attestation: I personally reviewed and interpreted this imaging study as follows: Imaging: CT Scan Radiologist's impression: per dr. gonzales has some inflammation/fatty infiltrate of pancreas Lab Data Lab results reviewed: Yes I reviewed the patient's lab results. HPI General Mode of arrival: ambulatory. Date/Time Provider Initiated Documentation: 02/03/20 12:05. Limitations to Documentation: no limitations. Information obtained by: patient. History of Present Illness 35 year old M presents to the emergency department with the chief complaint of abdominal pain, described as moderate, and it has been constant. No relieving factors improve symptom(s), No exacerbating factors reported . Patient notes nausea/vomiting. Related Data Home Medications Medication Instructions Recorded Confirmed fluoxetine 60 mg PO HS 01/04/13 02/03/20 ondansetron 4 mg PO Q8H PRN #30 tab 02/03/20 Previous Rx's Medication Instructions Recorded ondansetron 4 mg PO Q8H PRN #30 tab 02/03/20 Allergies Allergy/AdvReac Type Severity Reaction Status Date / Time No Known Allergies Allergy Unverified 02/03/20 12:08 General Stated Complaint: Abd Prob MARIETTA: 3 Review of Systems All systems reviewed & are unremarkable except as noted in HPI and below Constitutional Constitutional: Denies chills, Denies fever(s) and Denies weakness Cardiovascular Cardiovascular: Denies chest pain and Denies dyspnea Respiratory Respiratory: Denies cough and Denies dyspnea Genitourinary Genitourinary: Denies dysuria Musculoskeletal Musculoskeletal: Denies joint swelling Integumentary/Breasts Skin/Breast: Denies rash Neurologic Neurologic: Denies weakness Psychiatric Psychiatric: Denies depression [facility] Medical History (Updated 02/03/20 @ 13:11 by Keven Johnson MD) Internal thrombosed hemorrhoids Recurrent sinusitis Surgical History (Updated 05/02/19 @ 08:38 by Jovita Bishop DO) History of nasal septoplasty Social History Smoking/Tobacco Use Status: Current every day Tobacco Type: cigarettes Smoking risk assessment performed?: Yes Alcohol Intake: current Alcohol Intake frequency: a few times a week Drug use: Never Substance use type: does not use Do you feel safe at home: Yes Do you feel safe in your relationship?: Yes Exam Const General: no acute distress Orientation: alert HENMT Head: normal to inspection Ears: external ears normal General nose exam: external nose normal Mouth: moist mucous membranes Eyes General: appearance normal, both eyes and all related structures Neck Neck: normal visual inspection Resp Effort & Inspection: normal respiratory effort and able to speak in complete sentences Cardio Rate: regular rate GI Palpation: soft Skin General skin exam: no rashes or lesions noted Neuro General: patient alert and patient oriented x3 Extrem General: normal to inspection Psych Mental Status: mental status grossly normal Course Vital Signs Vital signs: Vital Signs Temperature 34.6 C L 02/03/20 12:03 Pulse 89 02/03/20 12:03 Blood Pressure 138/83 02/03/20 12:03 Pulse Oximetry 96 02/03/20 12:03 Temperature 34.6 C L 02/03/20 12:03 Temperature Source Temporal Artery Scan 02/03/20 12:03 Pulse 89 02/03/20 12:03 Respiratory Effort Non-Labored 02/03/20 12:09 Blood Pressure 138/83 02/03/20 12:03 Blood Pressure Position Sitting 02/03/20 12:03 Pulse Oximetry 96 02/03/20 12:03 Oxygen Delivery Method Room Air 02/03/20 12:03 Oxygen Flow Rate 0 02/03/20 12:03 Pain Level 4 02/03/20 12:03
[2020-02-03] MEDS: Normal Saline 1,000 ML 1000 ML IV (12:37)
[2020-02-03] MEDS: Ketorolac 15 MG/ML VIAL IVP (12:37)
[2020-02-03] MEDS: Ondansetron 4 MG/2 ML VIAL IVP (12:37)
[2020-02-03 12:39] LABS: Abs Immature Grans 0.02 10^3/uL (0.0-0.06); Absolute Basophil Count 0.03 10^3/uL (0.0-0.2); Absolute Eosinophil Count 0.13 10^3/uL (0.0-0.7); Absolute Lymphocyte Count 1.78 10^3/uL (1.2-3.4); Absolute Monocyte Count 0.47 10^3/uL (0.1-0.8); Absolute Neutrophil Count 4.27 10^3/uL (1.2-6.7); Basophils % 0.4; Eosinophils % 1.9; HCT 43.2 % (40.0-50.0); HGB 14.7 g/dL (13.5-17.5); Immature Grans % 0.3; Lymphocytes % 26.6; MCH 27.7 pg (27.0-33.0); MCV 81.4 fL (80-95); MPV 11.4 fL (8.0-11.0); Neutrophils % 63.8; Nucleated RBC 0 %; Platelet Count 183 10^3/uL (130-400); RBC 5.31 10^6/uL (4.36-5.78); RDW 12.4 % (11.8-14.1); RDW-SD 36.2 fL
[2020-02-03] MEDS: Omnipaque 350 MG/ML 100 ML BTL IJ (12:53)
--- NOTE | 2020-02-03 12:53 | DI.CT_ITS ---
EXAM: CT ABDOMEN PELVIS W CLINICAL HISTORY: n/v, right sided abdominal pain TECHNIQUE: COMPARISON: CT CT ABDOMEN PELVIS W from 07/06/2018 FINDINGS: CT examination of the abdomen and pelvis was performed with bolus infusion of 100 cc of Omnipaque 350 . Images obtained through the lung bases are unremarkable. The liver appears normal with no evidence of a focal mass. Spleen is unremarkable in appearance.. Gallbladder and bile ducts are unremarkable. There is a question of slight peripancreatic edema and minimal edema is also present in the mesentery in a nonspecific pattern. No focal small bowel pathology seen. Adrenals appear normal bilaterally. Kidneys appear normal with no evidence of renal mass, hydronephro sis, or nephrolithiasis There is no evidence of abdominal or pelvic adenopathy. Abdominal aorta is of normal diameter and no major vascular abnormality is seen. Appendix is normal. No evidence diverticulitis or bowel obstruction. No significant abdominal wall hernia seen. Impression: Question mild peripancreatic edema, please correlate with possibility of pancreatitis. Otherwise neg ative CT examination of the abdomen and pelvis. RADIATION DOSE DELIVERED: 1,368.79mGy.cm Total DLP 1,368.79mGy.cm Total DLP DATA REPOSITORY: All CT scans at this facility are submitted to the National Radiology Data Registry (NRDR) Dose Index Registry (DIR) with the [employer] ([employer]). RADIATION OPTIMIZATION: All CT scans at this facility use at least one of these dose optimization te chniques: automated exposure control; mA and/or kV adjustment per patient size (includes targeted exa ms where dose is matched to clinical indication); or iterative reconstruction.
[2020-02-03] MEDS: Normal Saline - Diluent 50 ML VIAL IV (12:54)
[2020-02-03] MEDS: Normal Saline Flush 10 ML SYR IVP (12:56)
[2020-02-03 12:57] LABS: ALT 48 U/L (16-63); AST 18 U/L (15-37); Albumin 3.8 g/dL (3.4-5.0); Alkaline Phosphatase 77 U/L (46-116); Anion Gap 8.5 mmol/L (3-11); BUN 16 mg/dL (7-18); Bilirubin, Direct 0.09 mg/dL (0.00-0.20); Bilirubin, Total 0.4 mg/dL (0.2-1.0); CO2 25.5 mmol/L (21.0-32.0); CREATININE 0.81 mg/dL (0.70-1.30); Calcium 8.5 mg/dL (8.5-10.1); Chloride 105 mmol/L (98-107); Glucose 100 mg/dL (74-106); Lipase 77 U/L (73-393); Potassium 3.9 mmol/L (3.5-5.1); Sodium 139 mmol/L (136-145); Total Protein 7.3 g/dL (6.4-8.2)
[2020-02-03 12:58] LABS: ETHANOL BLOOD < 3.0 mg/dL (<3)
== END 2020-02-03 13:20 | disposition home or self-care (01) ==
LOC: ER 13:16
PROVIDERS: Emergency Provider Emergency Medicine; PCP Neuromusculoskeletal Medicine & OMM
DX: R10.11 Right upper quadrant pain (principal); R11.2 Nausea with vomiting, unspecified; Z90.49 Acquired absence of other specified parts of digestive tract
CPT/HCPCS: 80053; 83690; 96361; 96374; 96375; 99284; 74177; 80320; 82248; 85025; J1885; J2405; J3490

== ENCOUNTER 2020-08-01 08:16 | Emergency (ER) | payer OTHER, SELFPAY ==
[2020-08-01 08:20] VITALS: BP 154/94; PULSE 90; RESP 16; TEMP 36.7; O2SAT 96
--- NOTE | 2020-08-01 08:30 | DI.CT_ITS ---
EXAM: CT HEAD FACIAL WO CLINICAL HISTORY: Head Injury positive LOC 48 hours ago, Left orbit. TECHNIQUE: Imaging Protocol: Axial computed tomography images with coronal and sagittal reformatted images were created and reviewed COMPARISON: CT HEAD WITHOUT CONTRAST from 06/15/2010 FINDINGS: BRAIN: There are no skull fractures nor fluid in the visualized paranasal sinuses. There is no evidence of intracranial hemorrhage, mass effect, or shift of midline structures. There are no extra-axial fluid collections. The ventricles are not enlarged or shifted and there is no blo od within the ventricular system nor within the basal cisterns. MAXILLOFACIAL CT SCAN: There is no evidence of facial fractures nor fluid in the visualized paranasal sinuses. Mild mucosal thickening is noted in the right maxillary and right sphenoid sinuses but no fluid levels therein. There is no evidence of orbital blowout fracture. IMPRESSION: No acute intracranial findings on this noninfused CT scan of the brain. No evidence of facial bone fractures nor orbital fractures. RADIATION DOSE DELIVERED: 1,827.4mGy.cm Total DLP DATA REPOSITORY: All CT scans at this facility are submitted to the National Radiology Data Registry (NRDR) Dose Index Registry (DIR) with the [employer] (ACR). RADIATION OPTIMIZATION: All CT scans at this facility use at least one of these dose optimization te chniques: automated exposure control; mA and/or kV adjustment per patient size (includes targeted exa ms where dose is matched to clinical indication); or iterative reconstruction.
--- NOTE | 2020-08-01 08:31 | ED.GENADUL_ITS ---
Discharge Plan Disposition Patient Disposition: HOME Condition: Stable Discharge Details Clinical Impression: Closed head injury with brief loss of consciousness, Concussion Primary Care Provider: Eric Dumont ED Provider: Rachel Dowling Home Meds and New Rx's Prescriptions: Continued fluoxetine 10 MG capsule 60 mg PO HS RF: 0 bupropion HCl 300 mg tablet extended release 24 hr 300 mg PO DAILY RF: 0 Discharge Instructions Instructions: Concussion (ED), Head Injury (ED) Additional Instructions: Follow up with primary care provider in 3-5 days. Return to ED sooner if any worsening pain, visual problems, vomiting, or concerns. Increase oral fluids. Please take Tylenol or Ibuprofen with food every 4-6 hours as needed for pain and swelling. Stand Alone Forms: Work Release Referrals: Eric Dumont [Primary Care Provider] - Medical Decision Making 35-year-old male presents to the ER chief complaint of left-sided face pain, headache and blurry vision status post a head injury with positive LOC approximately 48 hours prior to arrival. Patient states he was working on a car when a piece of the car he was working on weighing approximately 25 pounds fell hitting him on the left side of his face and head. He reports positive loss of consciousness for a few seconds. Since then he has had headache, blurry vision, and tinnitus which she reports is at his baseline. He denies any diplopia or double vision. He does also report some mild neck pain, no crepitus no step-off with palpation. He denies any vomiting, does endorse some nausea. He did not take any medications prior to arrival. He does have a past surgical history of nasal septoplasty recurrent sinusitis. He is a smoker. Denies any illicit drugs. Uncorrected visual acuity is 20/40 right eye, 20/70 on left eye, 20/25 bilateral per RN report. Patient reports she is wearing glasses but does not. CT head and facial without contrast ordered to rule out fracture or intracranial hemorrhage. Offered nausea and pain medications patient declined at this time. Differential diagnosis includes but not limited to sinus fracture, periorbital fracture, contusion, concussion, atypical migraine, subdural hematoma. EXAM: CT HEAD FACIAL WO CLINICAL HISTORY: Head Injury positive LOC 48 hours ago, Left orbit. TECHNIQUE: Imaging Protocol: Axial computed tomography images with coronal and sagittal reformatted images were created and reviewed COMPARISON: CT HEAD WITHOUT CONTRAST from 06/15/2010 FINDINGS: BRAIN: There are no skull fractures nor fluid in the visualized paranasal sinuses. There is no evidence of intracranial hemorrhage, mass effect, or shift of midline structures. There are no extra-axial fluid collections. The ventricles are not enlarged or shifted and there is no blood within the ventricular system nor within the basal cisterns. MAXILLOFACIAL CT SCAN: There is no evidence of facial fractures nor fluid in the visualized paranasal sinuses. Mild mucosal thickening is noted in the right maxillary and right sphenoid sinuses but no fluid levels therein. There is no evidence of orbital blowout fracture. IMPRESSION: No acute intracranial findings on this noninfused CT scan of the brain. No evidence of facial bone fractures nor orbital fractures. Discussed CT results with patient and home care who verbalizes understanding. Discussed return instructions including increased pain, visual disturbances, vomiting. This text was generated using [employer] system, please disregard any oddities of phrase or misspellings. HPI General Mode of arrival: ambulatory . Date/Time Provider Initiated Documentation: 08/01/20 08:24 . Limitations to Documentation: no limitations . Information obtained by: patient . HPI Narrative: 35-year-old male presents to the ER chief complaint of left-sided face pain, headache and blurry vision status post a head injury with positive LOC approximately 48 hours prior to arrival. Patient states he was working on a car when a piece of the car he was working on weighing approximately 25 pounds fell hitting him on the left side of his face and head. He reports positive loss of consciousness for a few seconds. Since then he has had headache, blurry vision, and tinnitus which she reports is at his baseline. He denies any diplopia or double vision. He does also report some mild neck pain, no crepitus no step-off with palpation. He de nies any vomiting, does endorse some nausea. He did not take any medications prior to arrival. He does have a past surgical history of nasal septoplasty recurrent sinusitis. He is a smoker. Denies any illicit drugs. Related Data Home Medications Medication Instructions Recorded Confirmed fluoxetine 60 mg PO HS 01/04/13 08/01/20 bupropion HCl 300 mg PO DAILY 08/01/20 08/01/20 Allergies Allergy/AdvReac Type Severity Reaction Status Date / Time No Known Allergies Allergy Unverified 08/01/20 08:24 General Stated Complaint: HeadInjury MARIETTA: 4 Review of Systems Narrative: Constitutional: Negative for weight loss, alert and oriented, well groomed, normal body habitus, appears comfortable. HEENT: Denies nasal discharge, sore throat, trouble swallowing. Previous head injury with positive LOC, reports left-sided face pain, left orbital pain, left eye blurry vision. And headache. Chest: Denies chest pain, palpitations, irregular rhythm, hypertension. Respiratory: Denies Shortness of breath, cough, hemoptysis. GI: Denies abdominal pain, vomiting, diarrhea, constipation. Positive nausea. : Denies dysuria, hematuria, flank pain, rectal bleeding. Neuro: Denies dizziness, weakness, syncope, or facial numbness. Hematologic: Denies easy bruising, intolerance to heat or cold, hair loss. [facility] Medical History Internal thrombosed hemorrhoids Recurrent sinusitis Surgical History History of nasal septoplasty Social History Smoking/Tobacco Use Status: Former Tobacco Use Quit Date: 06/04/20 Smoking risk assessment performed?: Yes Alcohol Intake: current Alcohol Intake frequency: a few times a week Drug use: Never Substance use type: does not use Do you feel safe at home: Yes Do you feel safe in your relationship?: Yes Exam Narrative Exam Narrative: Constitutional: Alert and oriented x3. Appears stated age. Normal body habitus. Head: Normocephalic, no trauma. Eyes: Pupils PERRLA, Red reflex noted, EOM's intact. Eyelids symmetrical without lesions, discharge, or swelling. ENT: Bilateral TM's WNL, no hemotympanum, external ear normal to inspection on left, right posterior external ear has a crusty sore to appears chronic, no mastoid TTP, swelling, or erythema, Nasal turbinates WNL, no nasal discharge. Tenderness with palpation to the left frontal and maxillary sinus, does have a small abrasion noted to left cheek. Normal dentition, Posterior pharynx WNL, no exudate. Chest: RRR, Normal S1, S2, distal pulses intact. Resp: Lungs clear to auscultation bilaterally, no wheezes, rales, or rhonchi. Musculoskeletal: Normal gait, 5/5 strength to all four extremities. Skin: No suspicious rashes or lesions. Capillary refill less than 2 sec. Neurologic: Cranial nerves II-XII intact. Alert and oriented x 3. DTR's intact. Hematologic/Lymphatic: No ecchymosis, no lymphadenopathy. [facility] Face images: 1. Abrasion Course Vital Signs Vital signs: Vital Signs Temperature 36.7 C 08/01/20 08:20 Pulse 90 08/01/20 08:20 Respiratory Rate 16 08/01/20 08:20 Blood Pressure 154/94 H 08/01/20 08:20 Pulse Oximetry 96 08/01/20 08:20 Temperature 36.7 C 08/01/20 08:20 Temperature Source Skin 08/01/20 08:20 Pulse 90 08/01/20 08:20 Respiratory Rate 16 08/01/20 08:20 Respiratory Effort 08/01/20 08:24 Respiratory Depth Normal 08/01/20 08:24 Respiratory Pattern Normal 08/01/20 08:24 Blood Pressure 154/94 H 08/01/20 08:20 Blood Pressure Position Sitting 08/01/20 08:20 Pulse Oximetry 96 08/01/20 08:20 Oxygen Delivery Method Room Air 08/01/20 08:20 Oxygen Flow Rate 0 08/01/20 08:20 Pain Level 6 08/01/20 08:20
--- OUTSIDE RECORDS SUMMARY | 2020-08-01 08:34 | XMS_ITS ---
:1985 Author Care Team Providers Name Role Phone BOLIVAR JAMES, DO Primary Care Provider Unavailable Allergies Code Code System Name Reaction Severity Status Onset NKDA ? Medications Name Status Start Date Stop Date ? ? amoxicillin 875 mg-potassium clavulanate 125 mg tablet Completed ? 02/07/2020 Take 1 tablet twice a day by oral route for 10 days. azithromycin 1 gram oral packet Completed ? 10/28/2018 1 single 1 gram dose bupropion HCl XL 150 mg 24 hr tablet, extended release Active ? Not available Take 1 tablet every day by oral route for 5 days. bupropion HCl XL 300 mg 24 hr tablet, extended release Active ? Not available Take 1 tablet every day by oral route for 90 days. fluoxetine 20 mg capsule Active ? Not eugene ilable TAKE ONE CAPSULE BY MOUTH EVERY DAY fluoxetine 40 mg capsule Active ? Not eugene ilable TAKE ONE CAPSULE BY MOUTH EVERY DAY IN ADDITION TO 20MG CAPSULE S nicotine 21 mg/24 hr daily transdermal patch Completed 07/25/2015 1 (one) Patch 24HR: daily ondansetron 4 mg disintegrating tablet Active ? Not available Place 2 tablets twice a day by translingual route. penicillin V potassium 500 mg tablet Completed 07/06/2014 07/16/2014 1 (one) Tablet: every six hours Vicodin 5 mg-300 mg tablet Completed 07/06/201407/07 1 (one)-2 Tablet: every 4-6 hrs. prn Problems Name Status Onset Date Source ? Depressive Disorder Active 09/22/2019 ? Obsessive-compulsive Disorder Active ? Hi story Nicotine Dependence Active ? History Acute Sinusitis Unknown ? History Sinusitis Unknown ? History Allergic Rhinitis Active ? History Periapical Abscess without Sinus Tract Active ? History Constipation Active ? History Venereal Disease Screening Unknown ? Histo ry Long-term Current Use of Drug Therapy Unknown ? History Procedures Date Name Performed by ? 04/06/2011 Appendectomy Information not avai lable 04/06/2003 Rhinoplasty Information not avai lable Results Lab Results Date Name Specimen Result Interpretation Description Value Range Status Address ? 02/08/2020 CBC W/ Auto BLD ? Wbc 7.1 5.0-10.0 Final [place] Diff 10*3/uL 10*3/uL [facility] (Internal) : [address] ? ? BLD ? Rbc 5.72 4.60-6.00 Final [place] 10*6/uL 10*6/uL [facility] (Internal) : [address] ? ? BLD ? Hgb 15.8 g/dL 14.0-18.0 Final [facility] g/dL [facility] (Internal) : [address] ? ? BLD ? Hct 47.0 % 41.0-51.0 Final [facility] (Internal) : [address] ? ? BLD ? Mcv 82.2 fL 80.0-96.0 Final [facility] (Internal) : [address] ? ? BLD ? Mch 27.6 pg 26.0-32.0 Final [facility] (Internal) : [address] ? ? BLD ? Mchc 33.6 g/dL 31.0-35.0 Final Nort h g/dL [facility] (Internal) : [address] ? ? BLD ? Rdw 12.7 % 11.5-14.5 Final [facility] (Internal) : [address] ? ? BLD ? Plt 200 130-450 Final [place] 10*3/uL 10*3/uL [facility] (Internal) : [address] ? ? BLD ? Anc 4.58 ? Final [place] 10*3/uL [facility] (Internal) : [address] ? ? BLD ? Nlr 2.69 0.00-3.20 Final [facility] (Internal) : [address] ? ? BLD ? Neutro 64.6 % 40.0-75.0 Final [facility] (Internal) : [address] ? ? BLD ? Lymph 24.0 % 20.0-50.0 Final [facility] ([facility]) : [address] ? ? BLD ? [place] 7.9 % 2.0-10.0 Final [facility] (Internal) : [address] ? ? BLD ? Eos 2.3 % 1.0-6.0 % Final [facility] (Internal) : [address] ? ? BLD ? Baso 0.6 % 0.0-1.0 % Final [facility] (Internal) : [address] ? ? BLD ? Ig 0.6 % 0.0-0.9 % Final [facility] (Internal) : [address] t 02/08/2020 CMP, Serum or S High g/r 130 mg/dL 74-106 Fin al [place] Plasma mg/dL [facility] ([facility]) : [address] ? ? S ? Bun 17 mg/dL 9-20 Final [place] mg/dL [facility] (Internal) : [address] ? ? S ? Crea 0.70 0.66-1.25 Final [place] mg/dL mg/dL [facility] (Internal) : [address] ? ? S ? Ca 9.1 mg/dL 8.4-10.2 Final [place] mg/dL [facility] (Internal) : [address] ? ? S ? Na 141 137-145 Final [place] mmol/L mmol/L [facility] (Internal) : [address] ? ? S ? K 4.3 3.5-5.1 Final [place] mmol/L mmol/L [facility] (Internal) : [address] ? ? S ? Cl 106 98-107 Final [place] mmol/L mmol/L [facility] (Internal) : [address] ? ? S ? Tco2 26.0 22.0-30.0 Final [place] mmol/L mmol/L [facility] (Internal) : [address] ? ? S ? Tp 7.8 g/dL 6.3-8.2 Final [place] g/dL [facility] (Internal) : [address] ? ? S ? Alb 4.6 g/dL 3.5-5.0 Final [place] g/dL [facility] (Internal) : [address] ? ? S ? Tbil 0.6 mg/dL 0.2-1.3 Final [place] mg/dL [facility] (Internal) : [address] ? ? S ? Alp 78 U/L 50-136 Final [place] U/L [facility] (Internal) : [address] ? ? S ? Alt (Sgpt) 47 U/L 21-72 U/L Final No rth [facility] (Internal) : [address] ? ? S ? Ast (Sgot) 30 U/L 17-59 U/L Final No rth [facility] (Internal) : [address] 02/01/2018 CT RNA, Qual, MISC - Specimen urine ? Fin al [place] PCR, Description Count ry [facility]specified [facility] Specimen (Interna l): [address] ? ? MISC - Chlamydia negative ? Final Nort h Result [facility] (Internal) : [address] ? ? MISC - GC Result negative ? Final Nort h [facility] (Internal) : [address] Past Encounters 02/07/2020 Nicotine Dependence; Abdominal Pain; Dep ressive Disorder Bolivar James, DO: [address] [place] [id number], Ph. Social History Tobacco Smoking Status Current Every Day Smoker Vaccine List None recorded. Plan of Care Reminders Provider Appointments None ? ? recorded. Lab None ? ? recorded. Referral None ? ? recorded. Procedures None ? ? recorded. Surgeries None ? ? recorded. Imaging None ? ? recorded. Vitals 02/07/2020 09:20AM Acute 20 Height Weight BMI Blood Pressure 190.5 cm 143.34 kg 39.5 kg/m2 (1) 158/92 mm[H g] (2) 122/82 mm[Hg ] 10/28/2018 10:40AM Follow Up 20 Height Weight BMI Blood Pressure 190.5 cm 121.56 kg 33.5 kg/m2 140/88 mm[Hg] 02/01/2018 01:40PM Acute 20 Height Weight BMI Blood Pressure 190.5 cm 129.27 kg 35.6 kg/m2 144/90 mm[Hg] 03/04/2016 Weight 130.63 kg 03/04/2016 Blood Pressure 128/82 mm[Hg] 01/07/2016 Weight 128.37 kg 01/07/2016 Height Blood Pressure 190.5 cm 132/70 mm[Hg] 07/25/2015 Weight 134.26 kg 07/25/2015 Height Blood Pressure 190.5 cm 136/74 mm[Hg] 11/03/2014 Height Blood Pressure 190.5 cm 138/98 mm[Hg] 11/03/2014 Weight 142.88 kg 03/09/2014 Height Blood Pressure 190.5 cm 132/86 mm[Hg] 03/09/2014 Weight 140.43 kg
== END 2020-08-01 09:21 | disposition home or self-care (01) ==
PROVIDERS: Emergency Provider Registered Nurse Emergency; PCP Neuromusculoskeletal Medicine & OMM
DX: S06.0X1A Concussion with loss of consciousness of 30 minutes or less, initial encounter (principal); W20.8XXA Other cause of strike by thrown, projected or falling object, initial encounter
CPT/HCPCS: 99284; 70450; 70486

== ENCOUNTER 2020-08-16 11:20 | Emergency (ER) | payer OTHER, SELFPAY ==
[2020-08-16 11:22] VITALS: BP 155/91; PULSE 82; RESP 20; TEMP 36.1; O2SAT 98
--- NOTE | 2020-08-16 11:33 | W.ED.GENAD ---
Discharge Plan Disposition Patient Disposition: HOME Condition: Stable Discharge Details Clinical Impression: Perichondritis of auricle Primary Care Provider: Eric Dumont ED Provider: Keven Johnson Home Meds and New Rx's Prescriptions: New clindamycin HCl 150 mg capsule 450 mg PO TID 7 Days Qty: 63 RF: 0 ciprofloxacin HCl 750 mg tablet 750 mg PO BID Qty: 14 RF: 0 Continued fluoxetine 10 MG capsule 60 mg PO HS RF: 0 bupropion HCl 300 mg tablet extended release 24 hr 300 mg PO DAILY RF: 0 Discharge Instructions Additional Instructions: You are being treated for an infection of the outer ear if you are not improving in the next few days try to remove the piercing or sooner if you change your mind you should be contacted with an appointment for an research animal facility supervisor if you feel more ill, have severe worsening pain or fevers return to the emergency department Medical Decision Making 35 yo male got a piercing in his pinna a week ago bilaterally and the right ear pinna is red and swollen. No fevers or inner ear pain. He has normal tm's and external auditory canals bilaterally. Left pinna is red and swollen except for the lobule, and the piercing goes through the anthelix. No flucutance on exam. Exam is consistent with perichondritis. I discussed that the ear piercing should be removed for adequate treatment of the ear and he is declining at the present to remove the piercing. He has the capacity to make his own decisions and understands risks of not removing the piercing including worsening infection leading to loss of portion of the ear and he is willing to accept these risks. I will start him on cipro and clindamycin and also refer to see [facility] and hopefully this week. Differential Diagnosis Differential Diagnosis: cellulitis, periaurical perichondritis HPI General Mode of arrival: ambulatory. Date/Time Provider Initiated Documentation: 08/16/20 11:23. Limitations to Documentation: no limitations. Information obtained by: patient. History of Present Illness 35 year old M presents to the emergency department with the chief complaint of right ear redness, described as moderate, Patient reports no radiation. Patient started experiencing this day(s) (1) and it has been constant. No relieving factors improve symptom(s), No exacerbating factors reported . Patient notes no other symptoms.. Related Data Home Medications Medication Instructions Recorded Confirmed fluoxetine 60 mg PO HS 01/04/13 08/16/20 bupropion HCl 300 mg PO DAILY 08/01/20 08/16/20 ciprofloxacin HCl 750 mg PO BID #14 tab 08/16/20 clindamycin HCl 450 mg PO TID 7 Days #63 cap 08/16/20 Previous Rx's Medication Instructions Recorded ciprofloxacin HCl 750 mg PO BID #14 tab 08/16/20 clindamycin HCl 450 mg PO TID 7 Days #63 cap 08/16/20 Allergies Allergy/AdvReac Type Severity Reaction Status Date / Time No Known Allergies Allergy Unverified 08/16/20 11:25 General Stated Complaint: Cellulitis MARIETTA: 4 Review of Systems All systems reviewed & are unremarkable except as noted in HPI and below Constitutional Constitutional: Denies chills, Denies fever(s) and Denies weakness Cardiovascular Cardiovascular: Denies chest pain and Denies dyspnea Respiratory Respiratory: Denies cough and Denies dyspnea Gastrointestinal Gastrointestinal: Denies abdominal pain, Denies nausea and Denies vomiting Musculoskeletal Musculoskeletal: Denies joint swelling Neurologic Neurologic: Denies weakness Psychiatric Psychiatric: Denies depression [facility] Medical History Internal thrombosed hemorrhoids Recurrent sinusitis Surgical History History of nasal septoplasty Social History Smoking/Tobacco Use Status: Former Tobacco Use Quit Date: 06/04/20 Smoking risk assessment performed?: Yes Alcohol Intake: current Alcohol Intake frequency: a few times a week Drug use: Never Substance use type: does not use Do you feel safe at home: Yes Do you feel safe in your relationship?: Yes Exam Const General: no acute distress Orientation: alert HENMT Head: normal to inspection Ears: TM's normal bilaterally General nose exam: external nose normal Mouth: moist mucous membranes Eyes General: appearance normal, both eyes and all related structures Neck Neck: normal visual inspection Resp Effort & Inspection: normal respiratory effort and able to speak in complete sentences Cardio Rate: regular rate Skin General skin exam: elasticity normal Neuro General: patient alert and patient oriented x3 Psych Mental Status: mental status grossly normal Course Vital Signs Vital signs: Vital Signs Temperature 36.1 C L 08/16/20 11:22 Pulse 82 08/16/20 11:22 Respiratory Rate 20 08/16/20 11:22 Blood Pressure 155/91 H 08/16/20 11:22 Pulse Oximetry 98 08/16/20 11:22 Temperature 36.1 C L 08/16/20 11:22 Temperature Source Skin 08/16/20 11:22 Pulse 82 08/16/20 11:22 Respiratory Rate 20 08/16/20 11:22 Respiratory Effort Non-Labored 08/16/20 11:25 Blood Pressure 155/91 H 08/16/20 11:22 Blood Pressure Position Sitting 08/16/20 11:22 Pulse Oximetry 98 08/16/20 11:22 Oxygen Delivery Method Room Air 08/16/20 11:22 Oxygen Flow Rate 0 08/16/20 11:22 Pain Level 6 08/16/20 11:22
--- NOTE | 2020-08-16 11:40 | NUR.NOTE ---
Nursing Note: faxed referral to [facility]
== END 2020-08-16 11:46 | disposition home or self-care (01) ==
PROVIDERS: Emergency Provider Emergency Medicine; PCP Neuromusculoskeletal Medicine & OMM
DX: H61.011 Acute perichondritis of right external ear (principal)
CPT/HCPCS: 99283

== ENCOUNTER 2021-08-15 18:17 | Emergency (ER) | payer OTHER, SELFPAY ==
--- NOTE | 2021-08-15 18:15 | RT.EKG_ITS ---
APPROVED REPORT Exam: Resting ECG Reason for Exam: CHEST PAIN Patient Location: E HR:73 bpm ECG Measurements Heart Rate 73 AXIS MN 166 P -1 QRSd 131 QRS -19 QT 390 T 40 QTc 431 Conclusion Sinus rhythm...normal P axis, V-rate 60- 99 Nonspecific intraventricular conduction delay...QRSd >115mS, not LBBB/RBBB Probable lateral infarct, old...Q>35mS, abnormal ST-T, V5-6 I aVL. Sinus. No STEMI. I have reviewed and interpreted ECG and agree with software generated interpretation.
--- NOTE | 2021-08-15 18:15 | DI.RAD_ITS ---
Exam(s) XR CHEST 2V PA LATERAL EXAM: XR CHEST 2V PA LATERAL CLINICAL HISTORY: chest pain, r/o acute disease. TECHNIQUE: 2D digital imaging was performed. COMPARISON: CR XR CHEST 2V PA LATERAL from 05/02/2019 FINDINGS: 2 views: Heart size is normal. The mediastinum is not widened. Lungs are clear. No infiltrates nor pleural effusions. IMPRESSION: No acute pulmonary findings. DATA REPOSITORY: RADIATION DOSE DELIVERED:
[2021-08-15 18:24] VITALS: BP 156/85; PULSE 70; TEMP 36.4; O2SAT 97
[2021-08-15 18:51] VITALS: PULSE 72; RESP 20
[2021-08-15 18:58] VITALS: RESP 18
[2021-08-15 19:00] VITALS: RESP 13
[2021-08-15 19:07] LABS: Abs Immature Grans 0.02 10^3/uL (0.0-0.06); Absolute Basophil Count 0.03 10^3/uL (0.0-0.2); Absolute Eosinophil Count 0.12 10^3/uL (0.0-0.7); Absolute Lymphocyte Count 2.14 10^3/uL (1.2-3.4); Absolute Monocyte Count 0.61 10^3/uL (0.1-0.8); Absolute Neutrophil Count 5.23 10^3/uL (1.2-6.7); Basophils % 0.4; Eosinophils % 1.5; HCT 46.4 % (40.0-50.0); HGB 15.2 g/dL (13.5-17.5); Immature Grans % 0.2; Lymphocytes % 26.3; MCH 27.2 pg (27.0-33.0); MCHC 32.8 % (32.0-36.0); MCV 83 fL (80-95); MPV 11.5 fL (8.0-11.0); Monocytes % 7.5; Neutrophils % 64.1; Platelet Count 196 10^3/uL (130-400); RBC 5.59 10^6/uL (4.36-5.78); RDW 12.6 % (11.8-14.1); WBC 8.15 10^3/uL (4.4-10.8)
[2021-08-15 19:20] LABS: ALT 36 U/L (16-63); AST 8 U/L (15-37); Albumin 3.6 g/dL (3.4-5.0); Alkaline Phosphatase 75 U/L (46-116); Anion Gap 9.4 mmol/L (3-11); BUN 20 mg/dL (7-18); Bilirubin, Total 0.3 mg/dL (0.2-1.0); CO2 24.6 mmol/L (21.0-32.0); CREATININE 0.9 mg/dL (0.70-1.30); Calcium 8.5 mg/dL (8.5-10.1); Chloride 106 mmol/L (98-107); Glucose 112 mg/dL (74-106); Magnesium 2.2 mg/dL (1.8-2.4); Sodium 140 mmol/L (136-145); Troponin I < 50 ng/L (<or=60)
--- NOTE | 2021-08-15 19:39 | DI.VRAD_ITS ---
PROCEDURE INFORMATION: Exam: XR Chest Exam date and time: 08/15/2021 7:14 PM Age: 36 years old Clinical indication: Chest pain TECHNIQUE: Imaging protocol: XR of the chest. Views: 2 views. COMPARISON: CR XR CHEST 2V PA LATERAL 05/02/2019 9:21 AM FINDINGS: Lungs: Clear lungs. Pleural spaces: No pneumothorax. No sizable pleural effusion. Heart/Mediastinum: No cardiomegaly. Bones/joints: Unremarkable. IMPRESSION: Clear lungs. Dictated and Authenticated by: Aubrey Aguilar MD. Ordering:DEVAUGHN Hussein MD
--- NOTE | 2021-08-15 19:55 | ED.GENADUL_ITS ---
Discharge Plan Disposition Patient Disposition: HOME Condition: Improving Discharge Details Clinical Impression: Chest wall pain Primary Care Provider: Eric Dumont ED Provider: Jovita Bishop Home Meds and New Rx's Prescriptions: Continued fluoxetine 10 MG capsule 60 mg PO HS bupropion HCl 300 mg tablet extended release 24 hr 300 mg PO DAILY Label Comments: TAKE 1 TABLET BY MOUTH ONCE DAILY START AFTER 5 DAYS OF 150MG TABLETS ciprofloxacin HCl 750 mg tablet 750 mg PO BID Qty: 14 0RF Discharge Instructions Instructions: Chest Wall Pain (ED) Additional Instructions: Your lab work, EKG and imaging today is reassuring and shows no evidence of acute concerning or significant findings. An order for an outpatient stress test has been placed. You will be contacted by the radiology department regarding scheduling of this test. Alternate ice and heat to the affected area(s) several times daily for 20 minutes at a time. Alternate tylenol and motrin as needed and directed for pain. Follow-up with your primary care doctor in 1 week. Return to the emergency department with any worsening or new concerning symptoms. Stand Alone Forms: Work Release Discharge Data Discharge Physician: Jovita Bishop Medical Decision Making 36-year-old male presents for intermittent sharp left-sided chest pain that occurred mostly with movement associated with shortness of breath for the past 2 weeks. Blood pressure mildly hypertensive at 156/85. Remainder vitals within normal limits. EKG notes a rate of 73, sinus, no STEMI nondiagnostic. Patient has reproducible tenderness to the left anterior chest just lateral to the sternum. There is no evidence of cellulitis, trauma or rash. History and presentation does not appear consistent with dissection or PE. PERC negative. Suspect musculoskeletal. Consider ACS. He has no significant family cardiac history but he has elevated BP and is obese. Will obtain screening labs, chest x-ray. Labs and imaging reviewed and unremarkable. Patient was given a dose of IV Toradol here. Patient feels comfortable going home and states his pain is minimal. An outpatient stress test ordered. Patient advised to rest and minimize exertion until stress test completed. Work note provided. He was a dvised to return here immediately with any worsening symptoms for reevaluation. Advised to follow up with the primary care doctor for re-evaluation. Usual and customary return precautions given prior to discharge. Medical Records Medical records reviewed: Yes I reviewed the patient's medical records. Imaging Data Radiologic Study: Radiologist's impression: XR Chest Exam date and time: 08/15/2021 7:14 PM Age: 36 years old Clinical indication: Chest pain TECHNIQUE: Imaging protocol: XR of the chest. Views: 2 views. COMPARISON: CR XR CHEST 2V PA LATERAL 05/02/2019 9:21 AM FINDINGS: Lungs: Clear lungs. Pleural spaces: No pneumothorax. No sizable pleural effusion. Heart/Mediastinum: No cardiomegaly. Bones/joints: Unremarkable. IMPRESSION: Clear lungs. Lab Data Lab results reviewed: Yes I reviewed the patient's lab results. Labs: Laboratory Tests Range/Units 08/15/21 08/15/21 18:55 18:55 WBC (4.4-10.8) 10^3/uL 8.15 RBC (4.36-5.78) 10^6/uL 5.59 Hgb (13.5-17.5) g/dL 15.2 Hct (40.0-50.0) % 46.4 MCV (80-95) fL 83 MCH (27.0-33.0) pg 27.2 MCHC (32.0-36.0) % 32.8 RDW (11.8-14.1) % 12.6 Plt Count (130-400) 10^3/uL 196 MPV (8.0-11.0) fL 11.5 H Immature Gran % 0.2 Neutrophils % 64.1 Lymphocytes % 26.3 Monocytes % 7.5 Eosinophils % 1.5 Basophils % 0.4 Nucleated RBC % (0.0-0.3) % 0.0 Absolute Neutrophils (1.2-6.7) 10^3/uL 5.23 Absolute Lymphocytes (1.2-3.4) 10^3/uL 2.14 Absolute Monocytes (0.1-0.8) 10^3/uL 0.61 Absolute Eosinophils (0.0-0.7) 10^3/uL 0.12 Absolute Basophils (0.0-0.2) 10^3/uL 0.03 Sodium (136-145) mmol/L 140 Potassium (3.5-5.1) mmol/L 4.0 Chloride (98-107) mmol/L 106 Carbon Dioxide (21.0-32.0) mmol/L 24.6 Anion Gap (3-11) mmol/L 9.4 BUN (7-18) mg/dL 20 H Creatinine (0.70-1.30) mg/dL 0.9 Estimated GFR/1.73 m2 (mL/min/1.73m2) >= 60.00 Glucose (74-106) mg/dL 112 H Calcium (8.5-10.1) mg/dL 8.5 Magnesium (1.8-2.4) mg/dL 2.2 Total Bilirubin (0.2-1.0) mg/dL 0.3 AST (15-37) U/L 8 L ALT (16-63) U/L 36 Alkaline Phosphatase (46-116) U/L 75 Troponin I (<or=60) ng/L < 50 Total Protein (6.4-8.2) g/dL 7.0 Albumin (3.4-5.0) g/dL 3.6 ECG Data Attestation: I personally reviewed and interpreted this ECG (s) as follows: Interpretation: Rate of 73, sinus, no STEMI. HPI General Mode of arrival: ambulatory . Date/Time Provider Initiated Documentation: 08/15/21 18:28 . Limitations to Documentation: no limitations . Information obtained by: patient . HPI Narrative: Patient is a 36-year-old male presents with intermittent left-sided chest pain that occurs with movement for the past 2 weeks. Patient states the pain is sharp, intermittent, just to the left side of the sternum and occurs with exertion. He states he first noticed it while chopping wood 2 weeks ago. He states the pain is 7/10 at its worst and is currently 1/10. He does admit to occasional tingling in his left arm but denies any tearing sensation, radiation to his back, or pleuritic chest pain. States he has occasionally taken [id number] pain medication with some relief. He has not taken any pain medication today. He states the pain is associated with shortness of breath when it occurs but he denies any fever, cough, nausea, vomiting or diarrhea. He denies any known exposure to COVID. He denies any loss of sense of smell or taste. He also denies any leg pain or swelling, recent travel or recent. Related Data Home Medications Medication Instructions Recorded Confirmed fluoxetine 10 mg capsule 60 mg PO HS 01/04/13 08/15/21 bupropion HCl 300 mg 24 hr tablet, 300 mg PO DAILY 08/01/20 08/15/21 extended release ciprofloxacin HCl 750 mg tablet 750 mg PO BID #14 tabs 08/16/20 Previous Rx's Medication Instructions Recorded ciprofloxacin HCl 750 mg tablet 750 mg PO BID #14 tabs 08/16/20 Allergies Allergy/AdvReac Type Severity Reaction Status Date / Time No Known Allergies Allergy Unverified 08/15/21 18:27 General Stated Complaint: Chest Pain MARI[place]: 3 Review of Systems All systems reviewed & are unremarkable except as noted in HPI and below Constitutional Constitutional: Denies chills, Denies excessive sweating, Denies fatigue, Denies fever(s), Denies weakness and Denies weight loss Eyes Eyes: Reports system reviewed and no additional complaints, except as documented and Denies blurry vision ENT Ears, Nose, Mouth, and Throat: Denies vertigo, Denies dizziness, Denies otalgia, Denies nasal congestion, Denies sore throat and Denies throat swelling Cardiovascular Cardiovascular: Reports chest pain, Denies syncope, Denies rapid heart rate and Reports dyspnea Respiratory Respiratory: Denies chest congestion, Denies cough, Denies pain on inspiration and Reports dyspnea Gastrointestinal Gastrointestinal: Denies abdominal pain, Denies diarrhea and Denies vomiting Genitourinary Genitourinary: Denies hematuria, Denies dysuria and Denies flank pain Musculoskeletal Musculoskeletal: Denies back pain and Denies joint swelling Integumentary/Breasts Skin/Breast: Denies lesions and Denies rash Neurologic Neurologic: Denies behavioral changes, Denies confusion, Denies vertigo, Denies dizziness, Denies syncope, Denies localized weakness and Denies weakness Psychiatric Psychiatric: Denies behavioral changes, Denies confusion and Denies depression Endocrine Endocrine: Denies excessive sweating and Denies fatigue Hematologic/Lymphatic Hematologic/Lymphatic: Denies easy bruising and Denies lymphadenopathy Allergic/Immunologic Allergic/Immunologic: Denies throat swelling PFSH All Active Problems (Updated 08/15/21 @ 20:05 by Jovita Bishop DO) Closed head injury with brief loss of consciousness (Acute) Concussion (Acute) Perichondritis of auricle (Acute) Chest wall pain (Acute) Medical History Internal thrombosed hemorrhoids Recurrent sinusitis Surgical History History of nasal septoplasty Social History Smoking/Tobacco Use Status: Former Tobacco Use Quit Date: 06/04/20 Smoking risk assessment performed?: Yes Alcohol Intake: current Alcohol Intake frequency: a few times a week Drug use: Never Substance use type: does not use Do you feel safe at home: Yes Do you feel safe in your relationship?: Yes Exam Const General: cooperative and healthy appearing Nutritional Appearance: obese centrally obese Orientation: alert, awake and oriented x3 HENMT Head: normal to inspection Ears: hearing grossly normal bilaterally, external ears normal and TM's normal bilaterally General nose exam: external nose normal Face and sinus: normal facial exam Mouth: oral mucosae normal Teeth and gingiva: dentition normal Throat: posterior oropharynx normal Eyes General: appearance normal, both eyes and all related structures Eyelids: eyelids normal Pupils: PERRL EOM: EOM intact bilaterally Neck Neck: normal visual inspection Lymphatic: no lymphadenopathy noted Chest Chest: normal inspection of the chest Chest/axillae images: 1. Tenderness to palpation to the left anterior chest just lateral to the st ernum. There is no evidence of erythema, edema, ecchymosis, rash or lesions. Resp Effort & Inspection: normal respiratory effort and able to speak in complete sentences Auscultation: clear to auscultation bilaterally Cardio Rate: regular rate Rhythm: regular rhythm GI Inspection: normal to inspection Palpation: soft, not firm, no guarding, no hepatosplenomegaly, no masses and nontender Auscultation: normal bowel sounds Back/Spine/Pelvis Back: no CVA tenderness Skin General skin exam: no rashes or lesions noted Neuro General: patient alert and patient awake Cognition: normal cognition Speech: speech normal Gait: normal gait Motor: muscle tone normal throughout Sensory Exam: no sensory deficits noted Extrem General: normal to inspection, full ROM, capillary refill normal and no edema Psych Appearance: grossly normal Mental Status: mental status grossly normal Speech and Movement: speech and movement normal Affect: normal affect Thought Process: normal Course Vital Signs Vital signs: Vital Signs Temperature 97.5 F L 08/15/21 18:24 Pulse 70 08/15/21 18:24 Blood Pressure 156/85 H 08/15/21 18:24 Pulse Oximetry 97 08/15/21 18:24 Temperature 97.5 F L 08/15/21 18:24 Pulse 70 08/15/21 18:24 Pulse 72 08/15/21 18:51 Respiratory Rate 13 08/15/21 19:00 Respiratory Effort Non-Labored 08/15/21 18:58 Respiratory Depth Normal 08/15/21 18:58 Respiratory Pattern Normal 08/15/21 18:58 Blood Pressure 156/85 H 08/15/21 18:24 Blood Pressure Position Sitting 08/15/21 18:24 Pulse Oximetry 97 08/15/21 18:24 Oxygen Delivery Method Room Air 08/15/21 18:24 Oxygen Flow Rate 0 08/15/21 18:24 Lab/Test Results Lab/Test Results: Laboratory Tests Range/Units 08/15/21 08/15/21 18:55 18:55 WBC (4.4-10.8) 10^3/uL 8.15 RBC (4.36-5.78) 10^6/uL 5.59 Hgb (13.5-17.5) g/dL 15.2 Hct (40.0-50.0) % 46.4 MCV (80-95) fL 83 MCH (27.0-33.0) pg 27.2 MCHC (32.0-36.0) % 32.8 RDW (11.8-14.1) % 12.6 Plt Count (130-400) 10^3/uL 196 MPV (8.0-11.0) fL 11.5 H Immature Gran % 0.2 Neutrophils % 64.1 Lymphocytes % 26.3 Monocytes % 7.5 Eosinophils % 1.5 Basophils % 0.4 Nucleated RBC % (0.0-0.3) % 0.0 Absolute Neutrophils (1.2-6.7) 10^3/uL 5.23 Absolute Lymphocytes (1.2-3.4) 10^3/uL 2.14 Absolute Monocytes (0.1-0.8) 10^3/uL 0.61 Absolute Eosinophils (0.0-0.7) 10^3/uL 0.12 Absolute Basophils (0.0-0.2) 10^3/uL 0.03 Sodium (136-145) mmol/L 140 Potassium (3.5-5.1) mmol/L 4.0 Chloride (98-107) mmol/L 106 Carbon Dioxide (21.0-32.0) mmol/L 24.6 Anion Gap (3-11) mmol/L 9.4 BUN (7-18) mg/dL 20 H Creatinine (0.70-1.30) mg/dL 0.9 Estimated GFR/1.73 m2 (mL/min/1.73m2) >= 60.00 Glucose (74-106) mg/dL 112 H Calcium (8.5-10.1) mg/dL 8.5 Magnesium (1.8-2.4) mg/dL 2.2 Total Bilirubin (0.2-1.0) mg/dL 0.3 AST (15-37) U/L 8 L ALT (16-63) U/L 36 Alkaline Phosphatase (46-116) U/L 75 Troponin I (<or=60) ng/L < 50 Total Protein (6.4-8.2) g/dL 7.0 Albumin (3.4-5.0) g/dL 3.6
--- NOTE | 2021-08-15 20:00 | NUR.NOTE ---
Requisition faxed to [facility] for appt for tread mill stress test, instruction sheet given to patient.Nursing Note:
[2021-08-15] MEDS: Ketorolac 30 MG/ML VIAL IVP (20:03)
[2021-08-15 20:18] VITALS: BP 142/88; PULSE 75; RESP 17; TEMP 36.8; O2SAT 99
== END 2021-08-15 20:20 | disposition home or self-care (01) ==
PROVIDERS: Emergency Provider Physician Assistant; PCP Neuromusculoskeletal Medicine & OMM
DX: R07.89 Other chest pain (principal); R06.02 Shortness of breath
CPT/HCPCS: 36415; 80053; 93005; 96374; 99284; 71046; 83735; 84484; 85025; 93010; J1885

== ENCOUNTER 2022-03-08 12:28 | Emergency (ER) | payer OTHER, SELFPAY ==
[2022-03-08 12:32] VITALS: BP 158/94; PULSE 70; RESP 16; TEMP 36.9; O2SAT 100
[2022-03-08 13:28] LABS: Bilirubin Negative (Negative); Blood Negative (Negative); Clarity Clear (Clear); Glucose Negative (Negative); Ketones Negative (Negative); Leukocyte Esterase Negative (Negative); Nitrite Positive (Negative); Specific Gravity >= 1.030 (1.005-1.025)
--- NOTE | 2022-03-08 13:38 | ED.GENADUL_ITS ---
Discharge Plan Disposition Patient Disposition: Home Condition: Stable Discharge Details Clinical Impression: Penile irritation Primary Care Provider: Eric Dumont ED Provider: Colten Andrea Home Meds and New Rx's Prescriptions: New cefpodoxime 200 mg tablet 200 mg PO BID 10 Days Qty: 20 0RF Rx Instructions: must administer with a meal/food clotrimazole 1 % cream 1 applic topical BID 7 Days Qty: 15 0RF No Action fluoxetine 10 MG capsule 60 mg PO HS Discharge Instructions Instructions: Balanoposthitis (ED) Additional Instructions: Please take medications as prescribed. Please return to the emergency department for any worsening symptoms. Please follow-up with urology in the coming weeks. Medical Decision Making 37-year-old male presents with dysuria over the last 1 to 2 days, girlfriend recently diagnosed with UTI, patient denies penile discharge did have some lower abdominal discomfort now resolved afebrile nontoxic no back pain, normal external genitalia no penile discharge. Consider STI versus UTI versus kidney stone, no evidence of balanitis or abnormality of foreskin at this time. Patient was in contact with urologist in the past to consider circumcision. Will obtain UA, gonorrhea chlamydia PCR pending results will determine further treatment patient be given urology referral for the coming weeks. 14: 05 nitrate positive urine without leuk esterase or WBCs. Given specificity of nitrates to bacterial involvement will treat empirically with cefpodoxime. Patient does endorse that he occasionally gets slight buildup of material around glans penis under foreskin consider component of early balanitis although currently not inflamed. We will call in prescription for cefpodoxime and clotrimazole topical. Patient will be given referral to see urology. Home care instructions and return precautions given Sign Out No HPI General Date/Time Provider Initiated Documentation: 03/08/22 12:33 . HPI Narrative: 37-year-old male presents with dysuria over the last 1 to 2 days, his girlfriend was recently diagnosed with a urinary tract infection, patient was also having right lower abdominal discomfort brief in nature, no nausea no vomiting no fevers no chills no back pain. Thought he may have been developing a yeast infection of his foreskin however denies any discharge no new sexual partners Related Data Home Medications Medication Instructions Recorded Confirmed fluoxetine 10 mg capsule 60 mg PO HS 10/01/13 12/03/22 cefpodoxime 200 mg tablet 200 mg PO BID 10 days #20 tabs 03/08/22 clotrimazole 1 % topical cream 1 applic topical BID 7 days #15 03/08/22 grams Previous Rx's Medication Instructions Recorded cefpodoxime 200 mg tablet 200 mg PO BID 10 days #20 tabs 03/08/22 clotrimazole 1 % topical cream 1 applic topical BID 7 days #15 03/08/22 grams Allergies Allergy/AdvReac Type Severity Reaction Status Date / Time No Known Allergies Allergy Unverified 03/08/22 12:35 General Stated Complaint: Urinary MARIETTA: 4 Review of Systems Narrative: Review of Systems Constitutional: negative Eyes: negative ENT: negative Cardiovascular: negative Respiratory: negative Gastrointestinal: negative : Dysuria Musculoskeletal: negative Skin: negative Neurologic: negative Psych: negative PFSH All Active Problems (Updated 03/08/22 @ 14:09 by Colten Andrea MD) Closed head injury with brief loss of consciousness (Acute) Concussion (Acute) Perichondritis of auricle (Acute) Penile irritation (Acute) Medical History Internal thrombosed hemorrhoids Recurrent sinusitis Surgical History History of nasal septoplasty Social History Smoking/Tobacco Use Status: Former Tobacco Use Quit Date: 06/04/20 Smoking risk assessment performed?: Yes Alcohol Intake: current Alcohol Intake frequency: a few times a week Drug use: Never Substance use type: does not use Do you feel safe at home: Yes Do you feel safe in your relationship?: Yes Exam Narrative Exam Narrative: Physical Examination General: alert, awake, cooperative, resting comfortably, no acute distress HEENT: normocephalic, atraumatic; PERRL, EOM intact, conjunctiva normal; no nasal discharge; moist mucous membranes, oral and pharyngeal mucosa normal, tolerating secretions Neck: supple, trachea midline; full ROM Chest: normal to inspection Respiratory: normal respiratory effort, speaking in full sentences, clear to auscultation, no wheezing, rales or rhonchi Cardiac: regular rate, regular rhythm, S1S2 intact, no murmurs rubs or gallops GI: abdomen soft, non-tender, non-distended; no palpable mass or hepatosplenomegaly : Normal external genitalia, normal-appearing foreskin, no evidence of balanitis, no urethral discharge foreskin easily retracted and then replaced, bilateral descended testes normal lie normal rugae Skin: no lesions, rashes or trauma appreciated Neuro: AAOx3, normal speech, moving all extremities Psych: Appropriate mood and affect Course Vital Signs Vital signs: Vital Signs Temperature 36.9 C 03/08/22 12:32 Pulse 70 03/08/22 12:32 Respiratory Rate 16 03/08/22 12:32 Blood Pressure 158/94 H 03/08/22 12:32 Pulse Oximetry 100 03/08/22 12:32 Temperature 36.9 C 03/08/22 12:32 Temperature Source Temporal Artery Scan 03/08/22 12:32 Pulse 70 03/08/22 12:32 Respiratory Rate 16 03/08/22 12:32 Respiratory Effort 03/08/22 12:36 Blood Pressure 158/94 H 03/08/22 12:32 Blood Pressure Position Sitting 03/08/22 12:32 Pulse Oximetry 100 03/08/22 12:32 Oxygen Delivery Method Room Air 03/08/22 12:32 Oxygen Flow Rate 0 03/08/22 12:32 Pain Level 3 03/08/22 12:46 PAWSS Have you Been Recently Intoxicated or Drunk Within the Last 30 days?: Yes Have you Ever Experienced Previous Episodes of Alcohol Withdrawal?: No Have you ever Experienced Withdrawal Seizures?: No Have you ever Experienced Delirium Tremens(DT)s?: No Have you ever undergone Alcohol Rehabilitation Treatment (i.e, inpt ot outpatient treatment programs)?: No Have you ever Experienced Blackouts?: No Have you ever Combined Alcohol with other Downers within the last 90 days?: No Have you ever Combined Alcohol with any other Substance of Abuse during the last 90 days?: No Positive Blood Alcohol level on Presentation? [PCS.BAL]: No Evidence of Increased Autonomic Activity (i.e. HR>120, tremor, sweating, agitation, nausea)?: No Result: 1
[2022-03-08 13:42] LABS: Bacteria Rare HPF (Negative); C & S Indicated? No; Casts Negative LPF (Negative); Crystals Negative HPF (Negative); Epithelial Cells Rare HPF (Negative); Mucus Trace (Negative); RBC 0-2 HPF (0-2); WBC 0-2 HPF (0-5)
[2022-03-08] MEDS: Cefpodoxime 200 MG TAB PO (14:09)
--- NOTE | 2022-03-08 14:23 | NUR.NOTE ---
pt has a referral for Urology to be seen next week. Referral has been faxed. 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
[2022-03-10 12:33] LABS: Chlamydia Result Negative (Negative); GC Result Negative (Negative)
== END 2022-03-08 14:19 | disposition home or self-care (01) ==
PROVIDERS: Emergency Provider Emergency Medicine; PCP Neuromusculoskeletal Medicine & OMM
DX: N48.89 Other specified disorders of penis (principal); Z87.891 Personal history of nicotine dependence
CPT/HCPCS: 87491; 87591; 99283; 81003; 81015; 99284

== ENCOUNTER 2022-09-11 19:36 | Emergency (ER) | payer BC, SELFPAY ==
[2022-09-11] VITALS (11 sets, daily range): BP systolic 112–141; BP diastolic 71–90; PULSE 65–82; RESP 20; TEMP 37.2; O2SAT 87–98
--- NOTE | 2022-09-11 20:00 | DI.CT_ITS ---
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 TECHNIQUE: Imaging Protocol: Axial CT angiography was performed with multi-slice acquisition and mu lti-planar and/or 3D reconstructions. CONTRAST MATERIAL: Intravenous: Omnipaque 350 contrast volume:85 mL COMPARISON: CT CT HEAD FACIAL WO from 08/01/2020 FINDINGS: Due to patient positioning portions of the anterior brain were not included on the [address] Head W and w/O: Ventricles and Extra axial spaces: Normal in size and morphology for the patient's age. Hemorrhage: None. Cerebral parenchyma: Normal. Midline shift: None. Brainstem/Cerebellum: Normal. Calvarium: Normal. Visualized Paranasal sinuses/Mastoids: Clear. Soft Tissues: Unremarkable. Enhancement: Unremarkable. CTA Brain W: Internal Carotid Arteries: No aneurysm, occlusion or significant stenosis. Anterior Cerebral Arteries: Right: No aneurysm, occlusion or significant stenosis. Left: No aneurysm, occlusion or significant stenosis. Middle Cerebral Arteries: Right: No aneurysm, occlusion or significant stenosis. Left: No aneurysm, occlusion or significant stenosis. Posterior cerebral Arteries: Right: No aneurysm, occlusion or significant stenosis. Left: No aneurysm, occlusion or significant stenosis. Vertebral Arteries: Right: No aneurysm, occlusion or significant stenosis. Left: No aneurysm, occlusion or significant stenosis. Basilar Artery: No aneurysm, occlusion or significant stenosis. IMPRESSION: 1. No evidence of large vessel occlusion or significant stenosis on the CT angiography of the head. 2. No acute intracranial process. RADIATION DOSE DELIVERED: 2,112.65mGy.cm Total DLP DATA REPOSITORY: All CT scans at this facility are submitted to the National Radiology Data Registry (NRDR) Dose Index Registry (DIR) with the [employer] (ACR). RADIATION OPTIMIZATION: All CT scans at this facility use at least one of these dose optimization te chniques: automated exposure control; mA and/or kV adjustment per patient size (includes targeted exa ms where dose is matched to clinical indication); or iterative reconstruction.
--- NOTE | 2022-09-11 20:10 | ED.GENADUL_ITS ---
Discharge Plan Disposition Patient Disposition: Home Discharge Details Clinical Impression: Headache Primary Care Provider: Eric Dumont ED Provider: Cleve Woods Home Meds and New Rx's Prescriptions: No Action fluoxetine 10 MG capsule 60 mg PO HS Discharge Instructions Instructions: General Headache (ED) Additional Instructions: At this time the CAT scan of your head and the blood vessels thankfully shows no signs of sinusitis, tumor, aneurysm or mass. Your headache may be a component of previous concussions and hits from when you were younger, or it may be a se nat migraine that has been challenging to resolve. At this time thankfully her headache has resolved. My recommendations would be to drink plenty of fluids and stay well-hydrated. Avoid meats that are high in nitrates such as preserved meats. Take Tylenol and Motrin together when or if your headache returns. We will place a referral with our neurologist for further evaluation and potential discussion of chronic medications for headache/migraine. If you notice any worsening of your symptoms, or any new symptoms such as vomiting, diarrhea, fever, chills, shortness of breath, chest pain, numbness, weakness, or fainting , please return immediately to the emergency department for reevaluation. Please follow up with your primary care provider as soon as possible for reassessment and reevaluation. As always, it was a pleasure participating in your medical care today. Referrals: Eric Dumont [Primary Care Provider] - Sherlyn Givens MD [ [facility]FF PHYSICIAN] - Medical Decision Making This is a pleasant 37-year-old male with no significant past medical history aside for sinusitis and history of septoplasty who presents today for evaluation of headache for the last month. Patient states that he has had a pressure in his head for the past month which she is describes as dull however it becomes severe at times. It goes from the top of his head radiating to the front and back. Occasionally it causes some neck irritation as well. As the headache comes and goes in severity he will also noticed squiggles in his anterior vision as well which has been associated with some of his previous headaches but not to this degree. He has been seeing his primary care provider over the past month for this, who is also being concern for potential sinusitis. The patient has been on antibiotics and recently completed a course of Augmentin 10 days ago. Patient states that this did slightly improve his headaches, but once he stopped taking the antibiotics the headaches returned. He does admit to nasal discharge which has been on and off and inconsistent. Right now he denies much nasal discharge but still does have a headache. This afternoon the headache did get quite severe, he took a nap and this did improve the headache. He does not really take any other medication for the headache ot herwise. He does admit to his temperature being slightly elevated compared to normal, but denies a high fever. He denies chills. He denies IV or illicit drug use. Over 15 years ago he did use cocaine once or twice, but has never used anything else since then. He denies any history of HIV or AIDS. No history of herpes. No genital lesions or discharge. He denies any personal or family history of aneurysms or brain tumors. He has had a concussion in the past. He denies repetitive head trauma. He does not notice any significant or specific focal aggravating or relieving components otherwise. He denies any personal or family history of glaucoma. No other complaints at this time. 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 Physical exam demonstrates normal neurologic assessment, no focal deficits. No rashes. No nuchal rigidity. No meningeal signs clinically. No significant sinus tenderness. No active discharge. Tympanic membranes are martinez and pearly. Differential is broad but includes resistant sinusitis, brain tumor, less likely aneurysm. Symptoms appear inconsistent with a ruptured aneurysm or meningitis. He does not have significant clinical risk factors for fungal meningitis. Atypical migraine or chronic migraine is also of concern and on the differential. We will give a migraine cocktail, get a CT/CTA to rule out mass or aneurysm. We will get blood work to evaluate for potential reactive components. No temporal tenderness to suggest giant cell arteritis though clinically. We will perform intraocular pressure testing. We will monitor closely and reassess. 8:21 PM Right intraocular pressure was averaged at around 15-19, left intraocular pressure was averaged at around 10-16 10 PM Laboratory work-up has returned notably normal, ESR, CRP, white count, are all normal. Procalcitonin normal. Symptoms appear clinically inconsistent with meningitis or an infectious etiology. CT/CTA are negative for acute process. Radiology does not see any evidence of sinusitis, mass, tumor, or aneurysm. On reassessment the patient states that his symptoms are completely resolved, he feels well and is requesting to go home. Symptoms certainly may be reflective of a chronic migraine that was just challenging to break. He has been given steroids, Compazine, Toradol and Tylenol. I did discuss lumbar puncture, and patient defers at this time, additionally I do not see a significant clinical indication with his resolution of his symptoms, negative CT imaging, and benign work-up and current clinical picture. With complete resolution of his symptoms I do feel that discharge is reasonable. I will hold off on starting the patient on any chronic migraine medications at this time. Rather recommendations will be aggressive hydration at home, taking both Tylenol and Motrin together if the headache returns, as well as outpatient follow-up with neurology for reassessment if headaches return/continue. No indication for antibiotics at this time as there is both no clinical evidence nor radiographic evidence of sinusitis. Discussed important dietary changes including avoidance of preserved meats and nitrate laden foods. I have extensively reviewed the treatment plan and discharge instructions with the patient. I have addressed all patient concerns at this time. The patient was made aware of what symptoms to monitor for that would warrant a return to the emergency department. Discussed the plan with the patient, they demonstrate verbal understanding and agreement with our assessment and plan at this time. The documentation in this chart was dictated using [employer] dictation software. Please excuse any dictation errors. FINDINGS: ANTERIOR CIRCULATION: Right internal carotid artery: Intracranial segment is patent with no evidence of hemodynamically significant stenosis. No aneurysm. Right middle cerebral artery: No occlusion or significant stenosis. No aneurysm. Right anterior cerebral artery: No occlusion or significant stenosis. No aneurysm. Left internal carotid artery: Intracranial segment is patent with no evidence of hemodynamically significant stenosis. No aneurysm. Left middle cerebral artery: No occlusion or significant stenosis. No aneurysm. Left anterior cerebral artery: No occlusion or significant stenosis. No aneurysm. POSTERIOR CIRCULATION: Right vertebral artery: No occlusion or significant stenosis. No aneurysm. Left vertebral artery: No occlusion or significant stenosis. No aneurysm. Basilar artery: No occlusion or significant stenosis. No aneurysm. Right posterior cerebral artery: No occlusion or significant stenosis. No aneurysm. Left posterior cerebral artery: No occlusion or significant stenosis. No aneurysm. Cavernous sinuses: Dural venous sinuses are patent. HEAD: Brain: No intracranial hemorrhage or extra-axial fluid collection. No evidence of mass effect or midline shift. Martinez-white matter differentiation is intact. Cerebral ventricles: No ventriculomegaly. Bones/joints: Unremarkable. No acute fracture. Paranasal sinuses: Visualized sinuses are normal. No fluid levels. Mastoid air cells: Visualized mastoids are normal. No mastoid effusion. Soft tissues: Unremarkable. IMPRESSION: 1. No intracranial arterial aneurysm, occlusion, or significant stenosis. 2. No acute findings on non-contrast Head CT images. Thank you for allowing us to participate in the care of your patient. Dictated and Authenticated by: Home Oates MD 09/11/2022 9:15 PM Eastern Time ([place] & [place]) HPI General Date/Time Provider Initiated Documentation: 09/11/22 19:53 . HPI Narrative: This is a pleasant 37-year-old male with no significant past medical history aside for sinusitis and history of septoplasty who presents today for evaluation of headache for the last month. Patient states that he has had a pressure in his head for the past month which she is describes as dull however it becomes severe at times. It goes from the top of his head radiating to the front and back. Occasionally it causes some neck irritation as well. As the headache comes and goes in severity he will also noticed squiggles in his anterior vision as well which has been associated with some of his previous headaches but not to this degree. He has been seeing his primary care provider over the past month for this, who is also being concern for potential sinusitis. The patient has been on antibiotics and recently completed a course of Augmentin 10 days ago. Patient states that this did slightly improve his headaches, but once he stopped taking the antibiotics the headaches returned. He does admit to nasal discharge which has been on and off and inconsistent. Right now he denies much nasal discharge but still does have a headache. This afternoon the headache did get quite severe, he took a nap and this did improve the headache. He does not really take any other medication for the headache otherwise. He does admit to his temperature being slightly elevated compared to normal, but denies a high fever. He denies chills. He denies IV or illicit drug use. Over 15 years ago he did use cocaine once or twice, but has never used anything else since then. He denies any history of HIV or AIDS. No history of herpes. No genital lesions or discharge. He denies any personal or family history of aneurysms or brain tumors. He has had a concussion in the past. He denies repetitive head trauma. He does not notice any significant or specific focal aggravating or relieving components otherwise. He denies any personal or family history of glaucoma. No other complaints at this time. 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 Related Data Home Medications Medication Instructions Recorded Confirmed fluoxetine 10 mg capsule 60 mg PO HS 01/04/13 03/08/22 Allergies Allergy/AdvReac Type Severity Reaction Status Date / Time No Known Allergies Allergy Unverified 08/20/22 16:53 General Stated Complaint: Headache MARIETTA: 3 Review of Systems All systems reviewed & are unremarkable except as noted in HPI and below PFSH All Active Problems (Updated 09/11/22 @ 21:42 by Cleve Woods DO) Headache (Acute) URI, acute (Acute) Closed head injury with brief loss of consciousness (Acute) Concussion (Acute) Perichondritis of auricle (Acute) Medical History Internal thrombosed hemorrhoids Recurrent sinusitis Surgical History History of nasal septoplasty Social History Smoking/Tobacco Use Status: Former Tobacco Use Quit Date: 06/04/20 Smoking risk assessment performed?: Yes Alcohol Intake: current Alcohol Intake frequency: a few times a week Alcohol type: beer Drug use: Never Substance use type: does not use Do you feel safe at home: Yes Do you feel safe in your relationship?: Yes Exam Narrative Exam Narrative: 1.Const: Well-nourished, Well-developed, appearing stated age 2.Eyes: PERRL, no conjunctival injection, and symmetrical lids. 3.ENT: Atraumatic external nose and ears. Moist MM. Neck: Symmetric, trachea midline, No thyromegaly. Patient demonstrates good movement of cervical neck. There is no nuchal rigidity, no nuchal tenderness. Patient is able to flex the neck without any difficulty or significant pain. Negative Kernig's and Brudzinski sign. 4.CVS: +S1/S2, No murmurs or gallops. Peripheral pulses 2+ and equal in all extremities. Brisk capillary refill in all extremities. 5.RESP: Unlabored respiratory effort. Clear to auscultation bilaterally. No wheezes rales or rhonchi 6.GI: Soft, Nontender/Nondistended, No hepatosplenomegaly. No guarding or rebound. 7.MSK: Normocephalic/Atraumatic, Extremities w/o deformity or ttp No cyanosis or clubbing, Normal movement of all extremities 8.Skin: Warm, Dry. No rashes or lesions. 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 Sensation grossly intact, no focal neurologic deficits. All 6 cardinal planes of vision are fully intact. No evidence of rotatory or vertical nystagmus. The patient demonstrated a normal [id number], good dexterity. There was no evidence of dysdiadochokinesia. Patient was able to ambulate without difficulty. There was no wide-based gait. Romberg testing was normal. [id number] testing was normal. Sensation was intact bilaterally as well as muscle strength bilaterally for all extremities. Patient was able to verbalize butter cup with no slurring, or miss pronunciation. 10.Psych: (AAO) x3. Appropriate mood and affect Course Vital Signs Vital signs: Vital Signs Temperature 37.2 C 09/11/22 19:42 Pulse 82 09/11/22 19:42 Respiratory Rate 20 09/11/22 19:42 Blood Pressure 112/71 09/11/22 19:42 Pulse Oximetry 97 09/11/22 19:42 Temperature 37.2 C 09/11/22 19:42 Temperature Source Oral 09/11/22 19:42 Pulse 82 09/11/22 19:42 Respiratory Rate 20 09/11/22 19:42 Respiratory Effort Normal, Non-Labored 09/11/22 19:46 Blood Pressure 112/71 09/11/22 19:42 Pulse Oximetry 97 09/11/22 19:42 Oxygen Delivery Method Room Air 09/11/22 19:42 Oxygen Flow Rate 0 09/11/22 19:42 Pain Level 4 09/11/22 19:42
[2022-09-11] MEDS: Acetaminophen 500 MG TAB 1000 MG PO (20:20)
[2022-09-11] MEDS: Prochlorperazine 10 MG/2 ML VIAL IVP (20:21)
[2022-09-11] MEDS: methylPREDNISolone SUCC 125 MG VIAL IVP (20:21)
[2022-09-11] MEDS: Ketorolac 15 MG/ML VIAL IVP (20:21)
[2022-09-11] MEDS: diphenhydrAMINE 50 MG/ML VIAL 25 MG IVP (20:21)
[2022-09-11] MEDS: Normal Saline 1,000 ML 1000 ML IV (20:22)
[2022-09-11 20:23] LABS: Abs Immature Grans 0.03 10^3/uL (0.0-0.06); Absolute Basophil Count 0.03 10^3/uL (0.0-0.2); Absolute Eosinophil Count 0.13 10^3/uL (0.0-0.7); Absolute Lymphocyte Count 2.14 10^3/uL (1.2-3.4); Absolute Monocyte Count 0.74 10^3/uL (0.1-0.8); Absolute Neutrophil Count 6.34 10^3/uL (1.2-6.7); Basophils % 0.3; Eosinophils % 1.4; HCT 46.2 % (40.0-50.0); HGB 16.1 g/dL (13.5-17.5); Immature Grans % 0.3; Lymphocytes % 22.7; MCH 28.3 pg (27.0-33.0); MCHC 34.8 % (32.0-36.0); MCV 81 fL (80-95); MPV 11.7 fL (8.0-11.0); Monocytes % 7.9; Neutrophils % 67.4; Platelet Count 204 10^3/uL (130-400); RBC 5.69 10^6/uL (4.36-5.78); RDW 12.8 % (11.8-14.1); WBC 9.41 10^3/uL (4.4-10.8)
[2022-09-11 20:24] LABS: ESR 6 mm/hr (0-15)
[2022-09-11 20:38] LABS: ALT 41 U/L (16-63); Albumin 3.8 g/dL (3.4-5.0); Alkaline Phosphatase 79 U/L (46-116); Anion Gap 7.8 mmol/L (3-11); BUN 21 mg/dL (7-18); Bilirubin, Total 0.4 mg/dL (0.2-1.0); CO2 25.2 mmol/L (21.0-32.0); CREATININE 0.9 mg/dL (0.70-1.30); Calcium 8.5 mg/dL (8.5-10.1); Chloride 105 mmol/L (98-107); Estimated GFR 114.22 (mL/min/1.73m2); Glucose 99 mg/dL (74-106); Potassium 3.9 mmol/L (3.5-5.1); Sodium 138 mmol/L (136-145); Total Protein 7.6 g/dL (6.4-8.2)
[2022-09-11] MEDS: Normal Saline - Diluent 50 ML VIAL IJ (20:39)
[2022-09-11] MEDS: Omnipaque 350 MG/ML 100 ML BTL IJ (20:40)
[2022-09-11] MEDS: Normal Saline Flush 10 ML SYR IVP (20:41)
[2022-09-11 20:58] LABS: Procalcitonin < 0.1 ng/mL
[2022-09-11 21:01] LABS: AST 9 U/L (15-37)
--- NOTE | 2022-09-11 21:16 | DI.VRAD_ITS ---
PROCEDURE INFORMATION: Exam: CTA Head Without And With Contrast, Arteriography Exam date and time: 09/11/2022 8:40 PM Age: 37 years old Clinical indication: Pain; Headache; Patient HX: 1 month BECKER, eval for aneurysm TECHNIQUE: Imaging protocol: Computed tomographic angiography of the head without and with contrast. Exam focused on the arteries. 3D rendering (Not supervised by radiologist): MIP and/or 3D reconstructed images were created by the technologist. Radiation optimization: All CT scans at this facility use at least one of these dose optimization techniques: automated exposure control; mA and/or kV adjustment per patient size (includes targeted exams where dose is matched to clinical indication); or iterative reconstruction. Contrast material: OMNI 350; Contrast volume: 100 ml; Contrast route: INTRAVENOUS (IV); COMPARISON: CT HEAD FACIAL WO 08/01/2020 8:57 AM FINDINGS: ANTERIOR CIRCULATION: Right internal carotid artery: Intracranial segment is patent with no evidence of hemodynamically significant stenosis. No aneurysm. Right middle cerebral artery: No occlusion or significant stenosis. No aneurysm. Right anterior cerebral artery: No occlusion or significant stenosis. No aneurysm. Left internal carotid artery: Intracranial segment is patent with no evidence of hemodynamically significant stenosis. No aneurysm. Left middle cerebral artery: No occlusion or significant stenosis. No aneurysm. Left anterior cerebral artery: No occlusion or significant stenosis. No aneurysm. POSTERIOR CIRCULATION: Right vertebral artery: No occlusion or significant stenosis. No aneurysm. Left vertebral artery: No occlusion or significant stenosis. No aneurysm. Basilar artery: No occlusion or significant stenosis. No aneurysm. Right posterior cerebral artery: No occlusion or significant stenosis. No aneurysm. Left posterior cerebral artery: No occlusion or significant stenosis. No aneurysm. Cavernous sinuses: Dural venous sinuses are patent. HEAD: Brain: No intracranial hemorrhage or extra-axial fluid collection. No evidence of mass effect or midline shift. Martinez-white matter differentiation is intact. Cerebral ventricles: No ventriculomegaly. Bones/joints: Unremarkable. No acute fracture. Paranasal sinuses: Visualized sinuses are normal. No fluid levels. Mastoid air cells: Visualized mastoids are normal. No mastoid effusion. Soft tissues: Unremarkable. IMPRESSION: 1. No intracranial arterial aneurysm, occlusion, or significant stenosis. 2. No acute findings on non-contrast Head CT images. Dictated and Authenticated by: Home Oates MD. Ordering:EDA Poon MD
--- NOTE | 2022-09-11 23:10 | NUR.NOTE ---
Pt placed on care management list for Neuro for chronic recurrent headaches per Dr. Woods within the next 2-3 months
== END 2022-09-11 21:48 | disposition home or self-care (01) ==
PROVIDERS: Emergency Provider Student in an Organized Health Care Education/Training Program; PCP Neuromusculoskeletal Medicine & OMM
DX: R51.9 Headache, unspecified (principal); R42 Dizziness and giddiness
CPT/HCPCS: 70496; 80053; 84145; 85652; 96361; 96374; 96375; 99285; 85025; 86140; 99284; J0780; J1200; J1885; J2930; J3490

== ENCOUNTER 2022-10-09 05:50 | Day surgery (SDC) | payer BC, SELFPAY ==
[2022-10-09 06:15] VITALS: BP 129/92; PULSE 75; RESP 18; TEMP 36.7; O2SAT 98
[2022-10-09] MEDS: Lactated Ringers 1,000 ML 80 ML IV (06:44)
--- NOTE | 2022-10-09 06:55 | W.PM.HP.N ---
Date of service: 10/09/22 Time of Service: 06:55 Assessment and Plan Assessment and plan (1) Phimosis: Status: Acute Assessment and plan: We will plan to do a circumcision today. The patient has requested that we do a vasectomy. He has already been counseled about the procedure and has signed the permit, but as far as I can tell, we have not done any type of prior authorization with the insurance company. I am not sure if a prior authorization is necessary, but I am reluctant to do the procedure today as it may lead to an unexpected cost for the patient. History of Present Illness History of Present Illness Chief Complaint: Phimosis Narrative: This is a 37-year-old gentleman who has an inability to retract his foreskin. When he gets an erection, the skin will crack and bleed and be painful. He presents now for circumcision. He is also interested in a circumcision. He has had his evaluation in the office and has signed a permit for an office procedure. I do not see that a prior authorization for vasectomy has been accomplished. Review of Systems Narrative: No fevers or chills No vision change or dysphasia No diabetes or thyroid dysfunction No shortness of breath, cough or hemoptysis No chest pain or palpitations No nausea, vomiting, hepatitis, ulcers, jaundice, diarrhea or constipation No seizures, strokes or peripheral neuropathy No bleeding disorders or anemia No gout PFSH All Active Problems (Updated 10/09/22 @ 07:01 by Hammad Sullivan MD) Phimosis (Acute) Closed head injury with brief loss of consciousness (Acute) Concussion (Acute) Perichondritis of auricle (Acute) URI, acute (Acute) Headache (Acute) Medical History (Updated 10/09/22 @ 07:01 by Hammad Sullivan MD) Internal thrombosed hemorrhoids OCD (obsessive compulsive disorder) Recurrent sinusitis Surgical History History of nasal septoplasty Social History Smoking/Tobacco Use Status: Former Tobacco Use Quit Date: 06/04/20 Smoking risk assessment performed?: Yes Alcohol Intake: current Alcohol Intake frequency: a few times a week Alcohol type: beer Drug use: Never Substance use type: does not use Housing: house Do you feel safe at home: Yes Do you feel safe in your relationship?: Yes Meds Allergies and Home Medications Allergies Allergy/AdvReac Type Severity Reaction Status Date / Time No Known Allergies Allergy Unverified 10/09/22 06:08 Home Medications Medication Instructions Recorded Confirmed Type fluoxetine 10 mg capsule 60 mg PO HS 01/04/13 10/09/22 History Exam Const Nutritional Appearance: obese Neck Neck: supple Resp Effort & Inspection: normal respiratory effort Auscultation: clear to auscultation bilaterally Cardio Rate: regular rate Rhythm: regular rhythm GI Palpation: soft Penis: phimosis Neuro General: patient alert, patient awake and patient oriented x3 Results Last Vital Signs Temp 36.7 C 10/09/22 06:15 Pulse 75 10/09/22 06:15 Resp 18 10/09/22 06:15 BP 129/92 H 10/09/22 06:15 Pulse Ox 98 10/09/22 06:15 Time Spent Time spent with Patient: <40 minutes Time was spent: other
--- NOTE | 2022-10-09 07:01 | ANES.PREOP_ITS ---
General Info Date of Service Date Performed: 10/09/22 Height: 6 ft 4 in Weight: 127.609 kg Body Mass Index (BMI): 34.2 Surgical Procedure: Operation Date: 10/09/22 07:40 Proposed Procedure Side Surgeon p Circumcision Hammad Sullivan MD Meds Allergies and Home Medications Allergies Allergy/AdvReac Type Severity Reaction Status Date / Time No Known Allergies Allergy Unverified 10/09/22 06:08 Home Medication Medication Instructions Recorded fluoxetine 10 mg capsule 60 mg PO HS 01/04/13 Current Visit Medications: Current Medications Generic Name Dose Route Start Last Admin Trade Name Freq PRN Reason Stop Dose Admin Ringer's Solution 1,000 mls @ 80 mls/hr 10/09/22 06:00 10/09/22 06:44 IV 10/09/22 23:59 80 mls/hr INFUSION GRAHAM Administration Cefazolin Sodium/Dextrose 1 gm in 50 mls @ 100 mls/hr 10/09/22 06:00 Ancef Duplex IVPB 10/09/22 16:00 PREOP GRAHAM IV Miscellaneous Supplies 1 each 10/09/22 06:00 Iv Access IV 10/09/22 23:59 DIRECTED GRAHAM Sodium Chloride 0 ml 10/09/22 06:00 Normal Saline Flush 10 Ml Syr IV 10/09/22 23:59 PRN PRN Sodium Chloride 0 ml 10/09/22 06:00 Normal Saline 10 Ml Vial IJ 10/09/22 23:59 DIRECTED PRN Sterile Water 0 ml 10/09/22 06:00 Water,Injection,Sterile 10 Ml Vial IJ 10/09/22 23:59 DIRECTED PRN PFSH Active Problems Active Problems: Problem Status Onset Code Closed head injury with brief loss of consciousness S06.9X9A Concussion S06.0X9A Perichondritis of auricle H61.009 URI, acute J06.9 Headache R51.9 Medical History Medical History (Updated 10/09/22 @ 07:01 by Hammad Sullivan MD) Internal thrombosed hemorrhoids OCD (obsessive compulsive disorder) Recurrent sinusitis Surgical History Surgical History History of nasal septoplasty Tobacco Smoking/Tobacco Use Status: Former Tobacco Use Alcohol Alcohol Intake: current Alcohol intake frequency: a few times a week Alcohol type: beer Substance Use Substance use: Never Substance use type: does not use Vital Signs and Lab Results Vital Signs Most Recent Vital Signs in EMR: Most Recent Vital Signs Temp Pulse Resp BP Pulse Ox 36.7 C 75 18 129/92 H 98 10/09/22 06:15 10/09/22 06:15 10/09/22 06:15 10/09/22 06:15 10/09/22 06:15 Lab Results Blood Type / Crossmatch: No Data to Display Complete Blood Count: White Blood Count 9.41 10^3/uL (4.4-10.8) 09/11/22 19:52 Red Blood Count 5.69 10^6/uL (4.36-5.78) 09/11/22 19:52 Hemoglobin 16.1 g/dL (13.5-17.5) 09/11/22 19:52 Hematocrit 46.2 % (40.0-50.0) 09/11/22 19:52 Platelet Count 204 10^3/uL (130-400) 09/11/22 19:52 Complete Metabolic Panel: Sodium 138 mmol/L (136-145) 09/11/22 19:52 Potassium 3.9 mmol/L (3.5-5.1) 09/11/22 19:52 Chloride 105 mmol/L (98-107) 09/11/22 19:52 Carbon Dioxide 25.2 mmol/L (21.0-32.0) 09/11/22 19:52 BUN 21 mg/dL (7-18) H 09/11/22 19:52 Creatinine 0.9 mg/dL (0.70-1.30) 09/11/22 19:52 Est GFR (CKD-EPI 2020) 114.22 (mL/min/1.73m2) 09/11/22 19:52 Calcium 8.5 mg/dL (8.5-10.1) 09/11/22 19:52 Albumin 3.8 g/dL (3.4-5.0) 09/11/22 19:52 Glucose 99 mg/dL (74-106) 09/11/22 19:52 C-Reactive Protein 0.10 mg/dL (0.0-0.3) 09/11/22 19:52 Liver Function Panel: Alanine Aminotransferase (ALT/SGPT) 41 U/L (16-63) 09/11/22 19: 52 Aspartate Amino Transf (AST/SGOT) 9 U/L (15-37) L 09/11/22 19:5 2 Coagulation Panel: No Data to Display Cardiac Panel: No Data to Display Arterial Blood Gas: No Data to Display Venous Blood Gas: No Data to Display Pancreas Panel: No Data to Display Thyroid Panel: No Data to Display Infectious Disease: No Data to Display Blood Cultures: No Data to Display Toxicology Panel: No Data to Display Imaging and Studies Imaging and Studies Study information below may be from another EMR and interpreted by another provider. Please see original notes in EMR for more complete details. EKG Summary: Conclusion Sinus rhythm...normal P axis, V-rate 60- 99 Nonspecific intraventricular conduction delay...QRSd >115mS, not LBBB/RBBB Probable lateral infarct, old...Q>35mS, abnormal ST-T, V5-6 I aVL. Sinus. No STEMI. I have reviewed and interpreted ECG and agree with software generated interpretation. 08/15/21 Anesthesia Assessment and Plan Anesthesia History Personal History: No History of Anesthesia Complications Family History: No Family History of Anesthesia Complications Exercise Tolerance Exercise Tolerance: Metabolic Equivalents>4 Pertinent Negatives Pertinent Negatives: No Symptoms of GERD, No Major Cardiovascular Symptoms or Complaints, No Major Pulmonary Symptoms or Complaints and No History of CVA/TIA Cardiac & Pulmonary Exam Cardiac Exam: Normal S1/S2 Heart Sounds Pulmonary Exam: Clear Bilateral Breath Sounds Cardiac and Pulmonary Comment:: Smokes socially. Quit everyday smoking approximately one year ago. Implantable Cardiac Device Does patient have a Pacemaker or an ICD?: No Airway Exam Known Difficult Airway: No Mallampati Class: 2 Mouth Opening: Normal (> 3cm) Thyromental Distance: Greater than 3 cm Facial Hair: Full Kennedy Neck Range of Motion: Full ROM Neck Circumference: Normal Teeth Condition: Normal Dentition ASA Classification ASA Score: ASA 2 Emergency Case?: No NPO Status NPO Status: NPO Clears >2 hours, Solids >8 hours Anesthesia Plan Resuscitation Status: Full Code Anesthesia Technique: General Anesthesia Airway Planned: LMA Monitors Used: Standard Monitors
[2022-10-09 07:05] VITALS: BMI 34.2
[2022-10-09] MEDS: ceFAZolin 1 GM/50 ML BAG IVPB (07:33)
[2022-10-09] MEDS: Bupivacaine 0.5% Pres-Free 30 ML VIAL (08:11)
--- NOTE | 2022-10-09 08:18 | W.PM.DSUDISC ---
Date of service: 10/09/22 Time of Service: 08:18 Discharge Plan Disposition Patient Disposition: Home Condition: Stable Discharge Details Reason For Visit: circumcision Attending Provider: Hammad Sullivan Primary Care Provider: Eric Dumont Home Meds and New Rx's Prescriptions: New tramadol 50 mg tablet 50 mg PO Q6H PRN (Reason: pain) Qty: 15 0RF Rx Instructions: may take with tylenol and NSAIDs No Action fluoxetine 10 MG capsule 60 mg PO HS Discharge Instructions Additional Instructions: OK to shower/bathe 10/10 and remove dressing F/U 1 to 2 weeks for wound check Activity:: no straining/lifting over 20 pounds for 1 to 2 weeks Remove Dressings/Wound Care:: 24 hours Shower/Bathe:: 24 hours Diet:: As Tolerated Discharge Orders Discharge Orders: Discharge Order (Routine); Ordered 10/09/22 Ordered By: Hammad Sullivan DS: Diagnosis Discharge Diagnosis (1) Phimosis: Status: Acute
[2022-10-09 08:21] VITALS: BP 67/44; PULSE 55; RESP 14; TEMP 36.7; O2SAT 98
--- NOTE | 2022-10-09 08:24 | W.PM.OP ---
Date of service: 10/09/22 Time of Service: 08:24 Operative Note Operative Note DATE OF PROCEDURE: 10/09/22 PRE-OP DIAGNOSIS: Phimosis POST-OP DIAGNOSIS: same PROCEDURE: circumcision SURGEON: Hammad Sullivan ANESTHESIA TYPE: Local By Surgeon and General LMA/ETT Refer to Anesthesia Record ESTIMATED BLOOD LOSS: 25 PATHOLOGY: none sent COMPLICATIONS: None Patient was transported to: PACU Patient's condition: stable Indications: This is a 37-year-old gentleman who has a history of phimosis. He has noticed pain and cracking/bleeding of the penile skin when he develops an erection. He presents now for circumcision. Procedure Description: The patient was brought to the operating room on 10/09/2022. He is placed in the supine position. After successful induction of general anesthesia, his genitalia was prepped and draped. He penile field block was performed using quarter percent Marcaine without epinephrine. A circumferential incision was made on the outer aspect of the foreskin. The incision was made at approximately the level of the coronal sulcus. A dorsal slit was then performed and the inner aspect of the foreskin was inspected. A second circumferential incision was made approximately 1 cm below the level of the coronal sulcus. All redundant skin was then excised. Any bleeding points that were encountered were cauterized with the Bovie. Once hemostasis had been obtained, the skin edges were reapproximated using simple 4-0 chromic sutures. Once the procedure was completed, a dorsal penile nerve block was performed with quarter percent Marcaine as well. The Xeroform dressing was then applied. The patient tolerated the procedure well with no complications.
[2022-10-09] MEDS: ePHEDrine 25 MG/5 ML Syringe IVP (08:25)
[2022-10-09 08:26] VITALS: BP 88/44; PULSE 62; RESP 16; TEMP 36.7; O2SAT 98
[2022-10-09 08:31] VITALS: BP 89/40; PULSE 62; RESP 15; TEMP 36.7; O2SAT 98
[2022-10-09 08:45] VITALS: BP 104/63; PULSE 61; RESP 18; TEMP 36.7; O2SAT 97
[2022-10-09 08:55] VITALS: BP 102/64; PULSE 60; RESP 16; TEMP 36.3; O2SAT 97
--- NOTE | 2022-10-09 09:35 | W.ANESPOSTOP ---
Postoperative Evaluation Date, Time and Location Date Performed: 10/09/22 Time Performed: 09:32 Patient Location: Day Surgery Unit Vital Signs Most Recent Imported Vital Signs: Most Recent Vital Signs Temp Pulse Resp BP Pulse Ox 36.3 C L 60 16 102/64 97 10/09/22 08:55 10/09/22 08:55 10/09/22 08:55 10/09/22 08:55 10/09/22 08:55 Pain Score Most Recent Pain Score: Most Recent Pain Score Pain Level 0 10/09/22 08:55 Assessment Mental Status: Awake (Alert & Oriented to Patient Baseline) Airway and Respiratory Function: Patent airway with normal (patient baseline) respiratory exam Cardiovascular Function: Hemodynamically Stable Hydration Status: Adequately Hydrated Nausea & Vomiting: No Nausea or Vomiting Pain: Pt. Denies Any Pain Peripheral Nerve Block: Patient did not receive a nerve block
== END 2022-10-09 09:35 | disposition home or self-care (01) ==
PROVIDERS: PCP Neuromusculoskeletal Medicine & OMM; Visit Provider Urology
PROC: (CPT 54161; principal; 2022-10-09 07:30)
DX: N47.1 Phimosis (principal)
CPT/HCPCS: 54161; J0690; J1100; J1885; J2001; J2405; J2704

== ENCOUNTER → 2023-01-26 19:26 | Outpatient (CLI) | payer BC, SELFPAY ==
--- NOTE | 2023-01-26 16:15 | DI.RAD_ITS ---
Exam(s) XR CHEST 2V PA LATERAL EXAM: XR CHEST 2V PA LATERAL CLINICAL HISTORY: Cough x 3 weeks. SOB R06.02. TECHNIQUE: 2D digital imaging was performed. COMPARISON: CR,XR XR CHEST 2V PA LATERAL from 08/15/2021 FINDINGS: 2 views: Heart size is normal. The mediastinum is not widened. Lungs are clear. No infiltrates nor pleural effusions. IMPRESSION: No acute pulmonary findings. DATA REPOSITORY: RADIATION DOSE DELIVERED:
--- NOTE | 2023-01-26 17:32 | DI.VRAD_ITS ---
PROCEDURE INFORMATION: Exam: XR Chest Exam date and time: 01/26/2023 5:03 PM Age: 38 years old Clinical indication: Cough TECHNIQUE: Imaging protocol: Radiologic exam of the chest. Views: 2 views. COMPARISON: CR XR CHEST 2V PA LATERAL 08/15/2021 7:14 PM FINDINGS: Lungs: Unremarkable. No consolidation. Pleural spaces: Unremarkable. No pleural effusion. No pneumothorax. Heart/Mediastinum: Unremarkable. No cardiomegaly. Bones/joints: Unremarkable. IMPRESSION: No acute findings. Dictated and Authenticated by: Tj Mar MD. Ordering:SARAH Santoyo MD
== END ==
PROVIDERS: PCP Neuromusculoskeletal Medicine & OMM; Visit Provider Physician Assistant
DX: R06.02 Shortness of breath (principal)
CPT/HCPCS: 71046

== ENCOUNTER 2023-01-26 20:45 | Outpatient (CLI) | payer BC, SELFPAY ==
[2023-01-26 17:08] LABS: Abs Immature Grans 0.02 10^3/uL (0.0-0.06); Absolute Basophil Count 0.05 10^3/uL (0.0-0.2); Absolute Eosinophil Count 0.16 10^3/uL (0.0-0.7); Absolute Lymphocyte Count 2.26 10^3/uL (1.2-3.4); Absolute Monocyte Count 0.74 10^3/uL (0.1-0.8); Absolute Neutrophil Count 5.83 10^3/uL (1.2-6.7); Basophils % 0.6; Eosinophils % 1.8; HCT 46.9 % (40.0-50.0); HGB 15.9 g/dL (13.5-17.5); Immature Grans % 0.2; Lymphocytes % 24.9; MCH 27.7 pg (27.0-33.0); MCHC 33.9 % (32.0-36.0); MCV 82 fL (80-95); MPV 11.2 fL (8.0-11.0); Monocytes % 8.2; Neutrophils % 64.3; Platelet Count 219 10^3/uL (130-400); RBC 5.75 10^6/uL (4.36-5.78); RDW 12.7 % (11.8-14.1); RDW-SD 37.4 fL; WBC 9.06 10^3/uL (4.4-10.8)
[2023-01-26 17:37] LABS: D-Dimer 146 ng/mlFEU (<500)
[2023-01-26 17:58] LABS: ALT 60 U/L (16-63); AST 11 U/L (15-37); Albumin 4.1 g/dL (3.4-5.0); Alkaline Phosphatase 80 U/L (46-116); Anion Gap 9.5 mmol/L (3-11); BUN 18 mg/dL (7-18); Bilirubin, Total 0.3 mg/dL (0.2-1.0); CO2 26.5 mmol/L (21.0-32.0); CREATININE 1.1 mg/dL (0.70-1.30); Calcium 9.2 mg/dL (8.5-10.1); Chloride 103 mmol/L (98-107); Creatine Kinase 138 U/L (39-308); Estimated GFR 89.22 (mL/min/1.73m2); Glucose 97 mg/dL (74-106); Magnesium 2.2 mg/dL (1.8-2.4); Potassium 4.1 mmol/L (3.5-5.1); Sodium 139 mmol/L (136-145)
[2023-01-28 21:06] LABS: Creatine Kinase 146 U/L (39 - 308)
[2023-03-09 15:59] LABS: BB Fraction 0 % (0); MB Fraction 0 % (0); MM Fraction 100 % (100)
== END 2023-01-26 20:46 | disposition home or self-care (01) ==
LOC: LBO 20:45
PROVIDERS: PCP Neuromusculoskeletal Medicine & OMM; Visit Provider Physician Assistant
DX: R06.02 Shortness of breath (principal)
CPT/HCPCS: 36415; 80053; 82550; 82552; 83735; 85025; 85379

== ENCOUNTER 2023-05-04 14:28 | Outpatient (REF) | payer BC, SELFPAY ==
[2023-05-04 21:51] LABS: Bilirubin Negative (Negative); Blood Negative (Negative); Clarity Clear (Clear); Glucose Negative (Negative); Ketones Negative (Negative); Leukocyte Esterase Negative (Negative); Nitrite Negative (Negative); Specific Gravity <= 1.005 (1.005-1.025); Urobilinogen 0.2 mg/dL (Up to 0.2)
[2023-05-06 12:23] LABS: Chlamydia Result Negative (Negative); GC Result Negative (Negative)
== END 2023-05-04 14:29 | disposition home or self-care (01) ==
LOC: LBN 14:28
PROVIDERS: PCP Neuromusculoskeletal Medicine & OMM; Visit Provider Physician Assistant
DX: R39.89 Other symptoms and signs involving the genitourinary system (principal); Z11.3 Encounter for screening for infections with a predominantly sexual mode of transmission
CPT/HCPCS: 87491; 87591; 81003

== ENCOUNTER 2024-01-21 18:47 | Emergency (ER) | payer BC, SELFPAY ==
[2024-01-21 18:48] VITALS: BP 150/83; PULSE 89; RESP 18; TEMP 36.2; O2SAT 97
--- NOTE | 2024-01-21 19:25 | ED.GENADUL_ITS ---
Discharge Plan Disposition Patient Disposition: Home Condition: Stable Discharge Details Clinical Impression: Mesenteric lymphadenopathy Primary Care Provider: Merry Jacinto ED Provider: Cleve Syed Home Meds and New Rx's Prescriptions: Continued albuterol sulfate [Proventil HFA] 90 mcg/actuation HFA aerosol inhaler 2 puff inhalation Q6H PRN (Reason: shortness of breath or wheezing) Qty: 8.5 0RF albuterol sulfate 90 mcg/actuation HFA aerosol inhaler 2 puff inhalation Q6H PRN (Reason: shortness of breath or wheezing) Qty: 6.7 0RF (DME) Aerochamber MV Spacer See Rx Instructions .Route Qty: 1 0RF Rx Instructions: As directed fluticasone propionate 50 mcg/actuation spray,suspension 2 spray intranasal DAILY PRN Rx Instructions: administer into each nostril fluoxetine 10 MG capsule 60 mg PO HS Discharge Instructions Instructions: Lymphadenitis, Mesenteric Lymphadenitis Additional Instructions: You were seen in the emergency department for your ongoing 2.5-week exacerbation of your varying stages of abdominal pain, nausea/vomiting, constipation and diarrhea that has been ongoing for about a year. He has suspicious findings on your CT scan for something called livia mesentery and you have diffuse mesenteric lymphadenitis, there is possibly some fibromuscular dysplasia of a couple vessels in your abdomen including the superior mesenteric artery and possibly common iliac artery that likely needs workup on an outpatient basis. I have placed you on a list to establish primary care here at the hospital I have also placed you in the service of our care management team will work to get you in with [facility] gastroenterology. Please watch your condition closely and return for any severe acute worsening especially extreme abdominal pain to even light touch. I have sent you home with some pain medicines and nausea medicines to take as needed, as well as an anti-inflammatory called ketorolac. Please use therapeutic dosing of Tylenol (acetamenophen) & Advil (ibuprofen) in an alternating fashion as follows: Take 1000mg of Tylenol every 6 hours without missing doses- that is 4 times per day. [place] in between the Tylenol dosings, take 400-600mg of Advil also on a 6 hour schedule, that is also 4 times per day.- Do not take ketorolac and Advil at the same time The daily maximum dosing of Tylenol is 4000mg, and the daily maximum dosing of Advil is 2400mg. This is safe to do for weeks. Please note that some common cold medications & prescription pain medications may contain acetamenophen and you need to read OTC drug labels and factor that in to maximum daily dosings. Some possibilities of this diagnosis include autoimmune disease, inflammatory bowel disease like Crohn's disease or ulcerative colitis though this was not seen on CT, unknown causes, lymphoma. Stand Alone Forms: Work Release Referrals: Care Management [Provider Group] [facility] [Provider Group] [facility] [Provider Group] [facility] [Outside] HPI General Date/Time Provider Initiated Documentation: 01/21/24 19:19 . HPI Narrative: 38 year-old male presents to ED today by POV/ambulating with a chief complaint of diffuse abdominal pain, intermittent episodes of varying levels of abdominal pain sometimes associated with p.o. intake sometimes not, sometimes associated with nausea and vomiting or vomiting of bile, sometimes associated with constipation other times associated with abnormal stools, liquid or loose, will slicks on top of the stool with onset for the past year at least, the current episode lasting the past 2.5 weeks. Quality described as generalized abdominal pain, cramping, no radiation to high fever, unintentional weight loss, night sweats, inability to tolerate p.o. intake, cough, shortness of breath, visual changes or headaches, black or bloody stools, hematemesis. Severity is described as sometimes severe. Palliating factors include nothing specific attempted. Provoking factors include nothing noted, cannot equate with any pattern. Patient not anticoagulated. Related Data Home Medications ?Medication ?Instructions ?Recorded ?Confirmed fluoxetine 10 mg capsule 60 mg PO HS 01/04/13 01/21/24 albuterol sulfate 90 mcg/actuation 2 puff inhalation Q6H PRN 01/26/23 01/21/24 aerosol inhaler (Proventil HFA) shortness of breath or wheezing #8.5 grams albuterol sulfate 90 mcg/actuation 2 puff inhalation Q6H PRN 07/14/23 01/21/24 aerosol inhaler shortness of breath or wheezing #6.7 grams inhalational spacing device #1 ea 07/14/23 01/21/24 (Aerochamber MV spacer) fluticasone propionate 50 2 spray intranasal DAILY PRN 12/02/23 01/21/24 mcg/actuation nasal spray,suspension Previous Rx's ?Medication ?Instructions ?Recorded albuterol sulfate 90 mcg/actuation 2 puff inhalation Q6H PRN 01/26/23 aerosol inhaler (Proventil HFA) shortness of breath or wheezing #8.5 grams albuterol sulfate 90 mcg/actuation 2 puff inhalation Q6H PRN 07/14/23 aerosol inhaler shortness of breath or wheezing #6.7 grams inhalational spacing device #1 ea 07/14/23 (Aerochamber MV spacer) Allergies Allergy/AdvReac Type Severity Reaction Status Date / Time No Known Allergies Allergy Unverified 01/21/24 18:54 General Stated Complaint: Abd Prob MARIETTA: 3 Review of Systems All systems reviewed & are unremarkable except as noted in HPI and below Exam Narrative Exam Narrative: GENERAL APPEARANCE: Well-nourished, non-toxic, awake and alert, atraumatic, no acute distress. SKIN: Warm, pink, dry, intact, without rashes/lesions/ulcerations. HEAD: Normocephalic, atraumatic, normal hair distribution for gender/age. EYES: Normal conjunctiva, no exudates on lids/lashes. ENT: Nares patent, no circumoral cyanosis, no facial swelling NECK: Supple, trachea midline, painless cervical ROM. LUNGS/CHEST: Lungs CTA bilaterally, non-labored respirations, normal A/P diameter, symmetrical expansion, no chest wall deformity HEART (CV/PV): Regular rate and rhythm without murmur, no peripheral edema, no JVD. ABDOMEN: Soft, non-distended, no guarding, diffuse lower abdominal tenderness without rebound tenderness, no CVA tenderness bilaterally to percussion, negative Sevilla sign, no McBurney's point tenderness, no Rovsing's MSK: Normal ROM, no swelling/deformity to bilateral UEs or LEs, moving all extremities without weakness, no cyanosis, spine midline without tenderness, normal curvature. NEURO: Mental Status AAOx4 - alert to person, place, time, events No facial droop, no forehead involvement. Motor: No focal weakness - strength 5/5 in bilateral UEs and LEs, proximal and distal, symmetric. Sensory: sensation intact to light touch globally. Gait normal: patient ambulated without ataxia into ED room. PSYCH: euthymic, cooperative, pleasant, appropriate speech Course Vital Signs Vital signs: Vital Signs Temperature 36.2 C L 01/21/24 18:48 Pulse 89 01/21/24 18:48 Respiratory Rate 18 01/21/24 18:48 Blood Pressure 150/83 H 01/21/24 18:48 Pulse Oximetry 97 01/21/24 18:48 Temperature 36.2 C L 01/21/24 18:48 Temperature Source Temporal Artery Scan 01/21/24 18:48 Pulse 89 01/21/24 18:48 Respiratory Rate 18 01/21/24 18:48 Respiratory Effort Normal 01/21/24 19:11 Blood Pressure 150/83 H 01/21/24 18:48 Blood Pressure Position Supine 01/21/24 18:48 Pulse Oximetry 97 01/21/24 18:48 Pain Level 6 01/21/24 18:48 Medical Decision Making This dictation utilizes [id number] dictation software and may contain unedited grammatical errors. 38 year-old male presents to ED today by POV/ambulating with a chief complaint of diffuse abdominal pain, intermittent episodes of varying levels of abdominal pain sometimes associated with p.o. intake sometimes not, sometimes associated with nausea and vomiting or vomiting of bile, sometimes associated with constipation other times associated with abnormal stools, liquid or loose, will slicks on top of the stool with onset for the past year at least, the current episode lasting the past 2.5 weeks. Quality described as generalized abdominal pain, cramping, no radiation to high fever, unintentional weight loss, night sweats, inability to tolerate p.o. intake, cough, shortness of breath, visual changes or headaches, black or bloody stools, hematemesis. Severity is described as sometimes severe. Palliating factors include nothing specific attempted. Provoking factors include nothing noted, cannot equate with any pattern. Patients' medical history: Noncontributory. Family and social history: Noncontributory. Pertinent exam findings / vital signs include diffuse lower abdominal tenderness without rebound tenderness, no CVA tenderness bilaterally to percussion, stable vitals, benign cardiopulmonary status, neuro intact. Differential / pathologies of concern include colitis, diverticulitis less likely, sepsis, gastroenteritis, gastritis, biliary tree pathology, obstructing renal stone, mesenteric ischemia. Diagnostic studies of: -CBC, CMP, lipase, magnesium, UA, alcohol level, CRP/ESR, CT ABD/pelvis W contrast. -CBC is completely benign -CMP is benign -Lactate 1.8, do not suspect sepsis -Magnesium within normal limits -CRP is negative and ESR is negative -UA is benign -Lipase negative -Alcohol level negative -CT shows livia mesentery sign with some abnormality at the SMA and common iliac artery with diffuse mesenteric lymphadenitis, I did discuss with the read there is suspicious for autoimmune pathology Interventions of: -Provided IV Tylenol, Toradol, Zofran, provided Zofran to go as well as Toradol to go in small to go supply of oxycodone to go for abdominal pain. -Sent referral to establish primary care as he has not seen his primary in a long time wishes to establish with us, sent referral to care management team to establish the patient with [facility] gastroenterology for further workup ED Course/Assessment/Plan: 38-year-old male presents with atypical abdominal pain, intermittent nausea and vomiting, varying stools including oral sex on top of the stool, various periods of soft stool and normal stool, some bilious vomiting intermittently, varying constipation over the past year, this episode has lasted for 2.5 weeks and he is, no remittance, he reports feeling bloated. His laboratory workup is unremarkable, there is no sign of sepsis, no abnormality on his CBC, his lactate is negative, his inflammatory markers are negative, his CMP is benign and his UA is benign, he has a negative alcohol level. His CT does show some abnormality of the SMA of some indistinctness of the wall and surrounding tissue and parts of the SMA as well as the common iliac artery, I did discuss with V rad there concern for autoimmune or vasculitic pathology, inflammatory markers being negative I think he does need a referral to possibly multimodality team including GI and possibly rheumatology or immunology at [facility], he does not have a primary care provider I did place him on the list to establish care, his condition has gone on quite a long time without any emergent decompensation and I do feel that this is a chronic condition that warrants outpatient diagnosis, the patient was comfortable with this disposition I did send him home with some oxycodone as well as Zofran, he is comfortable with returning for any acute worsening in the interim for possible more urgent consult-but he would like to go home and get some sleep tonight and does not want to wait for [facility] consults tonight. Findings not consistent with perforated viscus, mesenteric ischemia or occlusive pathology, vasculitis, diverticulitis, ulcerative colitis or Crohn's disease, intractable nausea or vomiting. Disposition of mesenteric lymphadenopathy. Patient verbalized understanding of the plan and return to ED criteria and e ngaged in shared decision making. Medical Records Medical records reviewed: Yes I reviewed the patient's medical records. Imaging Data Radiologic Study: Attestation: I personally reviewed and interpreted this imaging study as follows: Imaging: CT Scan Radiologist's impression: Addendum created by Tasneem Baldwin MD on 01/21/2024 9:29:36 PM EDT: I discussed case findings with CLEVE SYED 01/21/2024 9:29 PM EDT. Initial report created on 01/21/2024 8:57:39 PM EDT: PROCEDURE INFORMATION: Exam: CT Abdomen And Pelvis With Contrast Exam date and time: 01/21/2024 7:53 PM Age: 38 years old Clinical indication: Generalized; Patient HX: Abdominal pain, vomiting TECHNIQUE: Imaging protocol: Computed tomography of the abdomen and pelvis with contrast. Radiation optimization: All CT scans at this facility use at least one of these dose optimization techniques: automated exposure control; mA and/or kV adjustment per patient size (includes targeted exams where dose is matched to clinical indication); or iterative reconstruction. Contrast material: [id number]; Contrast volume: 100 ml; Contrast route: INTRAVENOUS (IV); COMPARISON: CT ABDOMEN PELVIS W 02/03/2020 12:53 PM. FINDINGS: Liver: Normal. No mass. Gallbladder and biliary ducts: Gallbladder contracted. Pancreas: Normal. No ductal dilation. Spleen: Normal. No splenomegaly. Adrenal glands: Normal. No mass. Kidneys and ureters: Normal. No hydronephrosis. Stomach and bowel: There is mild gastric distension. Appendix: No evidence of appendicitis. Intraperitoneal space: There are scattered pockets of edema throughout the mesentery, increased in conspicuity compared to previous exam. There is mild adenopathy, slightly worse compared to prior study. Vasculature: There is some subtle indistinctness to the proximal left common iliac artery series 10 images 139-159. Similar changes are seen in the mid region of the SMA series 10, images 71-82. Lymph nodes: See Intraperitoneal space finding. Urinary bladder: Unremarkable as visualized. Reproductive: Unremarkable as visualized. Bones/joints: Unremarkable. No acute fracture. Soft tissues: Unremarkable. IMPRESSION: Shotty mesenteric adenopathy with inflammatory changes. Indistinct portions of the SMA and left common iliac artery. Consider vasculopathy. Clinical and laboratory correlation recommended. Dictated and Authenticated by: Tasneem Baldwin MD. Lab Data Lab results reviewed: Yes I reviewed the patient's lab results. Labs: Laboratory Tests Range/Units 01/21/24 01/21/24 01/21/24 19:09 19:09 19:15 WBC (4.4-10.8) 10^3/uL 7.48 RBC (4.36-5.78) 10^6/uL 5.53 Hgb (13.5-17.5) g/dL 15.8 Hct (40.0-50.0) % 45.9 MCV (80-95) fL 83 MCH (27.0-33.0) pg 28.6 MCHC (32.0-36.0) % 34.4 RDW (11.8-14.1) % 12.9 Plt Count (130-400) 10^3/uL 232 MPV (8.0-11.0) fL 11.4 H Immature Gran % % 0.3 Neutrophils % % 56.5 Lymphocytes % % 30.6 Monocytes % % 9.4 Eosinophils % % 2.8 Basophils % % 0.4 Nucleated RBC % (0.0-0.3) % 0.0 Absolute Neutrophils (1.2-6.7) 10^3/uL 4.23 Absolute Lymphocytes (1.2-3.4) 10^3/uL 2.29 Absolute Monocytes (0.1-0.8) 10^3/uL 0.70 Absolute Eosinophils (0.0-0.7) 10^3/uL 0.21 Absolute Basophils (0.0-0.2) 10^3/uL 0.03 ESR (0-15) mm/hr 4 VBG Lactate (0.6-1.4) mmol/L 1.8 H Sodium (136-145) mmol/L 145 Potassium (3.5-5.1) mmol/L 4.0 Chloride (98-107) mmol/L 110 H Carbon Dioxide (21.0-32.0) mmol/L 24.7 Anion Gap (3-11) mmol/L 10.3 BUN (7-18) mg/dL 21 H Creatinine (0.70-1.30) mg/dL 1.0 Est GFR (CKD-EPI 2020) (mL/min/1.73m2) 100.03 Glucose (74-106) mg/dL 113 H Calcium (8.5-10.1) mg/dL 8.9 Magnesium (1.8-2.4) mg/dL 2.1 Cancelled Total Bilirubin (0.2-1.0) mg/dL 0.33 AST (15-37) U/L 20 ALT (16-63) U/L 39 Alkaline Phosphatase (46-116) U/L 82 C-Reactive Protein (<or=0.5) mg/dL < 0.50 Total Protein (6.4-8.2) g/dL 7.4 Albumin (3.4-5.0) g/dL 3.7 Lipase (16-77) U/L 37 Urine Color (Yellow) Yellow Urine Clarity (Clear) Clear Urine pH (5-8) 6.0 Ur Specific [place] (1.005-1.025) 1.025 Urine Protein (Neg-Trace) mg/dL Negative Urine Ketones (Negative) mg/dL Negative Urine Blood (Negative) Negative Urine Nitrite (Negative) Negative Urine Bilirubin (Negative) Negative Urine Urobilinogen (Up to 0.2) mg/dL 0.2 Ur Leukocyte Esterase (Negative) Negative Urine Glucose (Negative) mg/dL Negative Ethyl Alcohol (<10) mg/dL < 3.0 Quality:SDOH Health Related Social Needs: No Data to Display PFSH All Active Problems (Updated 01/21/24 @ 21:43 by KARYN Erwin) Mesenteric lymphadenopathy (Acute) Phimosis (Acute) Closed head injury with brief loss of consciousness (Acute) Concussion (Acute) Perichondritis of auricle (Acute) URI, acute (Acute) Medical History (Updated 01/21/24 @ 21:43 by KARYN Erwin) OCD (obsessive compulsive disorder) Internal thrombosed hemorrhoids Recurrent sinusitis Surgical History (Updated 12/02/23 @ 13:41 by Peterson Langford MD) H/O endoscopic sinus surgery History of nasal septoplasty Social History (Updated 12/02/23 @ 14:35 by Peterson Langford MD) Smoking/Tobacco Use Status: Current every day Tobacco Type: cigarettes Smoking risk assessment performed?: Yes Alcohol Intake: current Alcohol Intake frequency: a few times a week Alcohol type: beer Drug use: Never Substance use type: does not use Housing: house Do you feel safe at home: Yes Do you feel safe in your relationship?: Yes
[2024-01-21 19:28] LABS: Lactate 1.8 mmol/L (0.6-1.4)
[2024-01-21 19:29] LABS: Abs Immature Grans 0.02 10^3/uL (0.0-0.06); Absolute Basophil Count 0.03 10^3/uL (0.0-0.2); Absolute Eosinophil Count 0.21 10^3/uL (0.0-0.7); Absolute Lymphocyte Count 2.29 10^3/uL (1.2-3.4); Absolute Neutrophil Count 4.23 10^3/uL (1.2-6.7); Basophils % 0.4 %; Eosinophils % 2.8 %; HCT 45.9 % (40.0-50.0); HGB 15.8 g/dL (13.5-17.5); Immature Grans % 0.3 %; Lymphocytes % 30.6 %; MCH 28.6 pg (27.0-33.0); MCHC 34.4 % (32.0-36.0); MCV 83 fL (80-95); MPV 11.4 fL (8.0-11.0); Monocytes % 9.4 %; Neutrophils % 56.5 %; Platelet Count 232 10^3/uL (130-400); RBC 5.53 10^6/uL (4.36-5.78); RDW 12.9 % (11.8-14.1); RDW-SD 38.7 fL; WBC 7.48 10^3/uL (4.4-10.8)
[2024-01-21 19:30] LABS: Bilirubin Negative (Negative); Blood Negative (Negative); Clarity Clear (Clear); Glucose Negative (Negative); Ketones Negative (Negative); Leukocyte Esterase Negative (Negative); Nitrite Negative (Negative); Specific Gravity 1.025 (1.005-1.025); Urobilinogen 0.2 mg/dL (Up to 0.2)
[2024-01-21] MEDS: ACETAMINOPHEN 1,000 MG/100 ML BTL 400 MG IVPB (19:34)
[2024-01-21] MEDS: Electrolyte SOLUTION,ORAL 1000 ML BTL PO (19:34)
[2024-01-21] MEDS: Ketorolac 15 MG/ML VIAL IVP (19:35)
[2024-01-21] MEDS: Ondansetron 4 MG/2 ML VIAL IVP (19:35)
[2024-01-21 19:47] LABS: ALT 39 U/L (16-63); Albumin 3.7 g/dL (3.4-5.0); Alkaline Phosphatase 82 U/L (46-116); Anion Gap 10.3 mmol/L (3-11); BUN 21 mg/dL (7-18); Bilirubin, Total 0.33 mg/dL (0.2-1.0); CO2 24.7 mmol/L (21.0-32.0); Calcium 8.9 mg/dL (8.5-10.1); Chloride 110 mmol/L (98-107); Estimated GFR 100.03 (mL/min/1.73m2); Glucose 113 mg/dL (74-106); Lipase 37 U/L (16-77); Magnesium 2.1 mg/dL (1.8-2.4); Sodium 145 mmol/L (136-145); Total Protein 7.4 g/dL (6.4-8.2)
[2024-01-21 19:48] LABS: ETHANOL BLOOD < 3.0 mg/dL (<10)
[2024-01-21] MEDS: Omnipaque 350 MG/ML 100 ML BTL IJ (19:55)
[2024-01-21] MEDS: Normal Saline - Diluent 50 ML VIAL IJ (19:56)
--- NOTE | 2024-01-21 20:05 | DI.CT_ITS ---
Exam(s) CT ABDOMEN PELVIS W EXAM: CT ABDOMEN PELVIS W CLINICAL HISTORY: abdominal pain, vomiting TECHNIQUE: Imaging Protocol: Axial computed tomography images with coronal and sagittal reformatted images were created and reviewed. CONTRAST MATERIAL: Intravenous: Omnipaque 350 Contrast volume:100 mL Oral: No COMPARISON: CT CT ABDOMEN PELVIS W from 02/03/2020 FINDINGS: ABDOMEN: Lung Bases: Normal where visualized. Liver: Normal density. No measurable mass. Portal, Superior Mesenteric, and Splenic Veins: Unremarkable. Gallbladder and Biliary Tract: No radiodense calculus or dilation. Pancreas: Normal density, no abnormal calcifications or inflammatory process. Spleen: Normal. Adrenals: No masses seen. Kidneys: Normal size, contour and axis. No radiodense stones or obstructive uropathy. No masses seen. Abdominal Aorta: Abdominal portion non-dilated. Bowel: No evidence of bowel obstruction. Mild wall thickening is seen in loops of proximal small bow el which may represent a nonspecific enteritis. The bowel is otherwise unremarkable. No evidence of appendicitis. Peritoneal Cavity: No ascites is present. There are areas of infiltration in the mesentery. A predo minantly lies around the mesenteric vessels. No free air. Lymph Nodes: Mildly enlarged mesenteric lymph nodes. Bones: Within normal limits for the patient's age. Soft Tissues: Unremarkable. PELVIS: Bladder: Symmetric distention, no gross wall thickening. Reproductive Organs: Unremarkable as visualized. Lymph Nodes: Within normal limits. Bones: Within normal limits for the patient's age. IMPRESSION: 1. Inflammatory changes in the mesentery predominantly around the mesenteric vessels with mildly enla rged mesenteric lymph nodes. This may represent a mesenteric adenitis, vasculopathy or secondary to an enteritis. 2. Mild wall thickening seen in proximal small bowel loops which may represent a nonspecific inflam matory/infectious enteritis. RADIATION DOSE DELIVERED: 882.43mGy.cm Total DLP DATA REPOSITORY: All CT scans at this facility are submitted to the National Radiology Data Registry (NRDR) Dose Index Registry (DIR) with the [employer] (ACR). RADIATION OPTIMIZATION: All CT scans at this facility use at least one of these dose optimization te chniques: automated exposure control; mA and/or kV adjustment per patient size (includes targeted exa ms where dose is matched to clinical indication); or iterative reconstruction.
[2024-01-21 20:45] LABS: AST 20 U/L (15-37)
--- NOTE | 2024-01-21 20:58 | DI.VRAD_ITS ---
Addendum created by Tasneem Baldwin MD on 01/21/2024 9:29:36 PM EDT: I discussed case findings with MJ SYED 01/21/2024 9:29 PM EDT. Initial report created on 01/21/2024 8:57:39 PM EDT: PROCEDURE INFORMATION: Exam: CT Abdomen And Pelvis With Contrast Exam date and time: 01/21/2024 7:53 PM Age: 38 years old Clinical indication: Generalized; Patient HX: Abdominal pain, vomiting TECHNIQUE: Imaging protocol: Computed tomography of the abdomen and pelvis with contrast. Radiation optimization: All CT scans at this facility use at least one of these dose optimization techniques: automated exposure control; mA and/or kV adjustment per patient size (includes targeted exams where dose is matched to clinical indication); or iterative reconstruction. Contrast material: [id number]; Contrast volume: 100 ml; Contrast route: INTRAVENOUS (IV); COMPARISON: CT ABDOMEN PELVIS W 02/03/2020 12:53 PM. FINDINGS: Liver: Normal. No mass. Gallbladder and biliary ducts: Gallbladder contracted. Pancreas: Normal. No ductal dilation. Spleen: Normal. No splenomegaly. Adrenal glands: Normal. No mass. Kidneys and ureters: Normal. No hydronephrosis. Stomach and bowel: There is mild gastric distension. Appendix: No evidence of appendicitis. Intraperitoneal space: There are scattered pockets of edema throughout the mesentery, increased in conspicuity compared to previous exam. There is mild adenopathy, slightly worse compared to prior study. Vasculature: There is some subtle indistinctness to the proximal left common iliac artery series 10 images 139-159. Similar changes are seen in the mid region of the SMA series 10, images 71-82. Lymph nodes: See Intraperitoneal space finding. Urinary bladder: Unremarkable as visualized. Reproductive: Unremarkable as visualized. Bones/joints: Unremarkable. No acute fracture. Soft tissues: Unremarkable. IMPRESSION: Shotty mesenteric adenopathy with inflammatory changes. Indistinct portions of the SMA and left common iliac artery. Consider vasculopathy. Clinical and laboratory correlation recommended. Dictated and Authenticated by: Tasneem Baldwin MD. Ordering:ANITA Poon MD
[2024-01-21 21:10] LABS: ESR 4 mm/hr (0-15)
[2024-01-21 21:26] LABS: C-Reactive Protein < 0.50 mg/dL (<or=0.5)
[2024-01-21 21:55] VITALS: BP 161/109; PULSE 67; RESP 16; TEMP 36.6; O2SAT 99
[2024-01-21] MEDS: Ketorolac 10 MG TAB 40 MG PO (21:57)
[2024-01-21] MEDS: Ondansetron O.D.T. 4 MG TABEF, 3 TABS/BTL PO (21:57)
== END 2024-01-21 22:08 | disposition home or self-care (01) ==
PROVIDERS: Emergency Provider Physician Assistant; PCP Family Medicine
DX: R59.0 Localized enlarged lymph nodes (principal); F17.210 Nicotine dependence, cigarettes, uncomplicated
CPT/HCPCS: 80053; 83690; 85652; 96365; 96375; 99285; 74177; 80320; 81003; 83605; 83735; 85025; 86140; 99284; J0131; J1885; J2405; J3490

== ENCOUNTER 2024-05-02 16:45 | Emergency (ER) | payer BC, SELFPAY ==
[2024-05-02 16:50] VITALS: BP 156/99; PULSE 78; RESP 16; TEMP 36.6; O2SAT 99
[2024-05-02 19:02] VITALS: RESP 16
[2024-05-02] MEDS: Dexamethasone 4 MG TAB 8 MG PO (19:07)
--- NOTE | 2024-05-02 22:30 | ED.GENADUL_ITS ---
Discharge Plan Disposition Patient Disposition: Home Condition: Stable Discharge Details Clinical Impression: Sinusitis Primary Care Provider: Merry Jacinto ED Provider: Britany Jain Home Meds and New Rx's Prescriptions: New amoxicillin-pot clavulanate 875-125 mg tablet 1 tab PO BID 7 Days Qty: 14 0RF No Action fluticasone propionate 50 mcg/actuation spray,suspension 2 spray intranasal DAILY PRN Rx Instructions: administer into each nostril Discharge Instructions Instructions: Sinusitis in adults Additional Instructions: COVID and flu testing are negative today. Given the duration and severity of your symptoms, will treat for sinusitis. Steroids given in the emergency department and antibiotic prescription sent to the pharmacy Please continue svyw-myz-fywihme supportive care measures and stay very hydrated. Follow-up with your PCP. HPI General Date/Time Provider Initiated Documentation: 05/02/24 17:58 . Limitations to Documentation: no limitations . Information obtained by: patient . HPI Narrative: 39-year-old gentleman without significant past medical history presents for evaluation of sinus pressure and pain. Symptoms have been ongoing for the last 3 weeks. Associated with headaches. He does have a history of migraines that occur when he has sinus issues. He reports his migraine headaches feels like severe pressure associated with some photophobia and some floaters. He denies any vomiting, but has been having some nausea. He has been trying some syta-bav-ahwtmiw sinus and cold medications without significant relief. Related Data Home Medications ?Medication ?Instructions ?Recorded ?Confirmed fluticasone propionate 50 2 spray intranasal DAILY PRN 12/02/23 05/02/24 mcg/actuation nasal spray,suspension amoxicillin 875 mg-potassium 1 tab PO BID 7 days #14 tabs 05/02/24 clavulanate 125 mg tablet Previous Rx's ?Medication ?Instructions ?Recorded amoxicillin 875 mg-potassium 1 tab PO BID 7 days #14 tabs 05/02/24 clavulanate 125 mg tablet Allergies Allergy/AdvReac Type Severity Reaction Status Date / Time No Known Allergies Allergy Unverified 05/02/24 16:54 General Stated Complaint: GenMedical MARIETTA: 3 Exam Narrative Exam Narrative: Review of Systems: All systems reviewed & are unremarkable except as noted in HPI and below Well-developed, no acute distress NCAT PERRL, normal conjunctiva Sinus tenderness to palpation Bilateral TMs with clear effusion, no bulging or erythema Boggy nasal mucosa Oropharynx without lesions or tonsillar exudate Cervical adenopathy RRR no murmur Unlabored respiratory effort clear bilaterally Course Vital Signs Vital signs: Vital Signs Temperature 36.6 C 05/02/24 16:50 Pulse 78 05/02/24 16:50 Respiratory Rate 16 05/02/24 16:50 Blood Pressure 156/99 H 05/02/24 16:50 Pulse Oximetry 99 05/02/24 16:50 Temperature 36.6 C 05/02/24 16:50 Pulse 78 05/02/24 16:50 Respiratory Rate 16 05/02/24 19:02 Respiratory Effort Normal 05/02/24 19:02 Respiratory Depth Normal 05/02/24 19:02 Respiratory Pattern Normal 05/02/24 19:02 Blood Pressure 156/99 H 05/02/24 16:50 Pulse Oximetry 99 05/02/24 16:50 Oxygen Delivery Method Room Air 05/02/24 16:50 Oxygen Flow Rate 0 05/02/24 16:50 Pain Level 4 05/02/24 16:50 Medical Decision Making Emergent evaluation of URI symptoms particularly sinus symptoms. Patient's had symptoms for the last 3 weeks. He has prior history of sinus infections requiring antibiotic therapy. He is nontoxic-appearing have a low suspicion for a serious bacterial illness or meningitis. Given the duration of symptoms we will treat with steroids to help reduce inflammation. And I will prescribe antibiotic to take. Recommend continued use of kluh-vrx-qajaots medications. Viral testing was obtained and patient is negative for flu or COVID. Quality:SDOH Health Related Social Needs: No Data to Display PFSH All Active Problems Sinusitis (Acute) Phimosis (Acute) Closed head injury with brief loss of consciousness (Acute) Concussion (Acute) Perichondritis of auricle (Acute) URI, acute (Acute) Medical History OCD (obsessive compulsive disorder) Internal thrombosed hemorrhoids Recurrent sinusitis Surgical History H/O endoscopic sinus surgery History of nasal septoplasty Social History Smoking/Tobacco Use Status: Current every day Tobacco Type: cigarettes Smoking risk assessment performed?: Yes Alcohol Intake: current Alcohol Intake frequency: a few times a week Alcohol type: beer Drug use: Never Substance use type: does not use Housing: house Do you feel safe at home: Yes Do you feel safe in your relationship?: Yes
== END 2024-05-02 19:24 | disposition home or self-care (01) ==
PROVIDERS: Emergency Provider Emergency Medicine; PCP Family Medicine
DX: R51.9 Headache, unspecified; F17.210 Nicotine dependence, cigarettes, uncomplicated; J01.90 Acute sinusitis, unspecified
CPT/HCPCS: 99283; J8540

== ENCOUNTER 2024-07-05 10:17 | Emergency (ER) | payer OTHER, SELFPAY ==
[2024-07-05 10:18] VITALS: BP 147/103; PULSE 94; RESP 14; TEMP 36.6; O2SAT 97
--- NOTE | 2024-07-05 10:37 | ED.GENADUL_ITS ---
Discharge Plan Disposition Patient Disposition: Home Discharge Details Clinical Impression: Laceration of left little finger Primary Care Provider: Merry Jacinto ED Provider: Cyrus Dinero Home Meds and New Rx's Prescriptions: Continued fluticasone propionate 50 mcg/actuation spray,suspension 2 spray intranasal DAILY PRN Rx Instructions: administer into each nostril bupropion HCl 150 mg tablet extended release 24 hr 150 mg PO DAILY Patient Comments: TAKE ONE TABLET BY MOUTH EVERY 24 HOURS venlafaxine 75 mg capsule,extended release 24hr 75 mg PO DAILY Patient Comments: TAKE ONE CAPSULE BY MOUTH EVERY DAY Discharge Instructions Instructions: Wound Care ED Additional Instructions: You were seen in the emergency department for your left little finger laceration laceration which was closed with sutures that will need to be removed in 7 to 10 days. As we discussed, please keep your wound clean, dry and covered. Please do not soak in a tub, swim or engage in any activities which could introduce dirt into your wound. You may return to the emergency department, go to urgent care or go to your primary care provider in 7 to 10 days to have your stitches removed. As we discussed if you develop any foul-smelling drainage fevers streaking signs of infection or have any other concerns please return to the emergency department. Your tetanus was updated approximately 2 years ago does not need to be updated today. For your pain please take medications as follows: 1. Take acetaminophen (Tylenol), 1,000 mg (two 500 mg tabs) every 6 hours [2. Take ibuprofen (Advil), 400 mg every 6 hours.] HPI General Date/Time Provider Initiated Documentation: 07/05/24 10:27 . HPI Narrative: [facility] [place] This is an overall very well-appearing jxvxu-oxvs-qciuwiqq 39-year-old normothermic and not tachycardic male with left little finger laceration with intact sensation and motor function for which patient received primary closure in the emergency department with nonabsorbable sutures. Please see separate procedure note. Given no significant contamination and mechanism of injury I do not feel the patient has had any foreign bodies in his wound which was irrigated extensively. As result I did not obtain any x-rays. No pain out of proportion to suggest necrotizing soft tissue infection. Patient's tetanus was updated less than 3 years ago so no indication for repeat tetanus. I counseled patient on keeping his hand clean dry and return to the ED urgent care or his primary care provider's office to have his sutures out in the next 7 to 10 days. During primary closure patient began feeling slightly nauseous. He was watching the suture and may have had a vasovagal response. This resolved spontaneously. He did not vomit so I did not feel he required IV hydration. We also discussed that he should return to the ED for any streaking signs of infection fevers or any foul-smelling drainage. He understood his return indications and was discharged with empiric trial of expectant outpatient management. HPI This is a 39-year-old rvnwn-ofrr-xjwxtmyk male with a tetanus immunization updated the past 3 years arrived emergency department via private vehicle in setting of left little finger laceration. 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 He denies any difficulty ranging his left little finger. He denies any other injuries. He was in his usual state of health earlier today. Exam General: Well-appearing in no acute distress speaking in complete sentences. Head: Normocephalic, atraumatic. Eye: Extraocular eye movements intact. No conjunctival injection. No scleral icterus. Ear, nose, mouth, throat: Grossly normal inspection. Normal voice, handling secretions normally. Neck: Trachea midline. Cardiovascular: Well-perfused distal extremities. Respiratory: Nonlabored respiration. Gastrointestinal: Nondistended abdomen. Musculoskeletal: Left hand warm well-perfused. On the palmar aspect of the left little finger, ulnar side there is a hemostatic approximately 1.5 cm laceration that violates the subcutaneous tissue. Patient has intact sensation and motor function in the left little finger across the MCP, PIP, and DIP joints. Cap r efill less than 2 seconds in the left fingertips. 2+ left radial pulse. Skin: Normal for age and race, grossly normal temperature and turgor. No acute rash. Neurologic: Alert and appropriate, no apparent acute deficits. GCS 15. Psychiatric: Mood and manner are appropriate. Grooming and personal hygiene are appropriate. Related Data Home Medications ?Medication ?Instructions ?Recorded ?Confirmed fluticasone propionate 50 2 spray intranasal DAILY PRN 12/02/23 07/05/24 mcg/actuation nasal spray,suspension bupropion HCl 150 mg 24 hr tablet, 150 mg PO DAILY 07/05/24 07/05/24 extended release venlafaxine 75 mg capsule,extended 75 mg PO DAILY 07/05/24 07/05/24 release 24 hr Allergies Allergy/AdvReac Type Severity Reaction Status Date / Time No Known Allergies Allergy Unverified 07/05/24 10:23 General Stated Complaint: Laceration MARIETTA: 4 Course Vital Signs Vital signs: Vital Signs Temperature 36.6 C 07/05/24 10:18 Pulse 94 H 07/05/24 10:18 Respiratory Rate 14 07/05/24 10:18 Blood Pressure 147/103 H 07/05/24 10:18 Pulse Oximetry 97 07/05/24 10:18 Temperature 36.6 C 07/05/24 10:18 Temperature Source Oral 07/05/24 10:18 Pulse 94 H 07/05/24 10:18 Respiratory Rate 14 07/05/24 10:18 Blood Pressure 147/103 H 07/05/24 10:18 Blood Pressure Position Sitting 07/05/24 10:18 Pulse Oximetry 97 07/05/24 10:18 Oxygen Delivery Method Room Air 07/05/24 10:18 Oxygen Flow Rate 0 07/05/24 10:18 Pain Level 0 07/05/24 10:18 Procedure Laceration Laceration 1: Date of Procedure: 07/05/24 Time of procedure: 11:15 Provider that performed the procedure: Cyrus Dinero Patient Consented: Verbally Site: hand Side (If applicable): left Description: linear Depth: simple, single layer Local anesthetic: Lidocaine 1% and other anesthetic (Digital block) Amount of anesthesia used (mL): 5 Pre-repair:: wound explored Suture size: 5-0 (Ethilon) Number of sutures:: 4 Technique: simple, interrupted Medical Decision Making Quality:SDOH Health Related Social Needs: No Data to Display PFSH All Active Problems (Updated 07/05/24 @ 11:16 by Cyrus Dinero MD) Laceration of left little finger (Acute) Phimosis (Acute) Closed head injury with brief loss of consciousness (Acute) Concussion (Acute) Perichondritis of auricle (Acute) URI, acute (Acute) Medical History OCD (obsessive compulsive disorder) Internal thrombosed hemorrhoids Recurrent sinusitis Surgical History H/O endoscopic sinus surgery History of nasal septoplasty Social History Smoking/Tobacco Use Status: Current every day Tobacco Type: cigarettes Smoking risk assessment performed?: Yes Alcohol Intake: current Alcohol Intake frequency: a few times a week Alcohol type: beer Drug use: Never Substance use type: does not use Housing: house Do you feel safe at home: Yes Do you feel safe in your relationship?: Yes PAWSS Have you Been Recently Intoxicated or Drunk Within the Last 30 days?: No Have you Ever Experienced Previous Episodes of Alcohol Withdrawal?: No Have you ever Experienced Withdrawal Seizures?: No Have you ever Experienced Delirium Tremens(DT)s?: No Have you ever undergone Alcohol Rehabilitation Treatment (i.e, inpt ot outpatient treatment programs)?: No Have you ever Experienced Blackouts?: No Have you ever Combined Alcohol with other Downers within the last 90 days?: No Have you ever Combined Alcohol with any other Substance of Abuse during the last 90 days?: No Positive Blood Alcohol level on Presentation? [PCS.BAL]: No Evidence of Increased Autonomic Activity (i.e. HR>120, tremor, sweating, agitation, nausea)?: No Result: 0
[2024-07-05] MEDS: Lidocaine 1% Pres-Free 5 ML VIAL (15:55)
== END 2024-07-05 11:39 | disposition home or self-care (01) ==
PROVIDERS: Emergency Provider Emergency Medicine; PCP Family Medicine
DX: S61.217A Laceration without foreign body of left little finger without damage to nail, initial encounter (principal); F17.210 Nicotine dependence, cigarettes, uncomplicated; W23.0XXA Caught, crushed, jammed, or pinched between moving objects, initial encounter; Y93.89 Activity, other specified; Y92.69 Other specified industrial and construction area as the place of occurrence of the external cause; Y99.0 Civilian activity done for income or pay
CPT/HCPCS: 12001; 99283; J2003

== ENCOUNTER 2025-03-08 20:16 | Outpatient (REF) | payer BC, SELFPAY ==
[2025-03-08 21:31] LABS: Abs Immature Grans 0.02 10^3/uL (0.0-0.06); Glucose Negative (Negative); HCT 44.0 % (40.0-50.0); HGB 14.8 g/dL (13.5-17.5); Immature Grans % 0.2 %; MCH 27.3 pg (27.0-33.0); MCHC 33.6 % (32.0-36.0); MCV 81 fL (80-95); MPV 11.8 fL (8.0-11.0); Platelet Count 263 10^3/uL (130-400); RBC 5.42 10^6/uL (4.36-5.78); RDW 13.0 % (11.8-14.1); RDW-SD 37.5 fL; WBC 8.19 10^3/uL (4.4-10.8)
[2025-03-08 21:40] LABS: Lipase 26 U/L (<53)
[2025-03-08 21:42] LABS: ALT 69 U/L (10-49); AST 34 U/L (<34); Albumin 4.3 g/dL (3.2-5.0); Alkaline Phosphatase 77 U/L (46-116); Anion Gap 8.4 mmol/L (3-11); BUN 20 mg/dL (9-23); Bilirubin, Total 0.40 mg/dL (0.2-1.2); CO2 27.6 mmol/L (20.0-31.0); Calcium 9.5 mg/dL (8.3-10.6); Chloride 107 mmol/L (98-107); Glucose 68 mg/dL (74-106); Potassium 3.8 mmol/L (3.5-5.1); Sodium 143 mmol/L (136-145); Total Protein 7.3 g/dL (5.7-8.2)
[2025-03-10 12:44] LABS: Chlamydia Result Negative (Negative); GC Result Negative (Negative)
== END 2025-03-08 20:17 | disposition home or self-care (01) ==
LOC: LBN 20:16
PROVIDERS: PCP Family Medicine; Visit Provider Physician Assistant
DX: R10.9 Unspecified abdominal pain (principal); Z11.3 Encounter for screening for infections with a predominantly sexual mode of transmission; R39.9 Unspecified symptoms and signs involving the genitourinary system; I45.10 Unspecified right bundle-branch block; R00.1 Bradycardia, unspecified
CPT/HCPCS: 80053; 83690; 87491; 87591; 81003; 85025

== ENCOUNTER 2025-03-09 13:44 | Emergency (ER) | payer BC, SELFPAY ==
[2025-03-09 13:55] VITALS: BP 138/68; PULSE 88; RESP 16; TEMP 36.8; O2SAT 98
[2025-03-09 14:08] VITALS: BP 138/68; PULSE 88; RESP 16; TEMP 36.8; O2SAT 98
--- NOTE | 2025-03-09 14:53 | ED.GENADUL_ITS ---
Discharge Plan Disposition Patient Disposition: Home Condition: Improving Discharge Details Clinical Impression: Mesenteric panniculitis, Gastritis Primary Care Provider: Merry Jacinto ED Provider: Biju Ledezma Meds and New Rx's Prescriptions: New pantoprazole [Protonix] 40 mg tablet,delayed release (DR/EC) 40 mg PO DAILY Qty: 30 0RF ciprofloxacin HCl [Cipro] 500 mg tablet 500 mg PO BID Qty: 14 0RF Continued bupropion HCl 150 mg tablet extended release 24 hr 150 mg PO DAILY Patient Comments: TAKE ONE TABLET BY MOUTH EVERY 24 HOURS venlafaxine 75 mg capsule,extended release 24hr 75 mg PO DAILY Patient Comments: TAKE ONE CAPSULE BY MOUTH EVERY DAY Discontinued omeprazole 20 mg capsule,delayed release(DR/EC) 20 mg PO DAILY Qty: 30 0RF Discharge Instructions Instructions: Gastritis ED Stand Alone Forms: Portal Information Referrals: Merry Jacinto [Primary Care Provider, Medicine] Discharge Data Discharge Physician: Biju Ledezma [facility] General Date/Time Provider Initiated Documentation: 03/09/25 13:58 . Related Data Home Medications ?Medication ?Instructions ?Recorded ?Confirmed bupropion HCl 150 mg 24 hr tablet, 150 mg PO DAILY 04/3003/09/25 extended release venlafaxine 75 mg capsule,extended 75 mg PO DAILY 04/3003/09/25 release 24 hr ciprofloxacin HCl 500 mg tablet 500 mg PO BID #14 tabs 03/09/25 (Cipro) pantoprazole 40 mg tablet,delayed 40 mg PO DAILY #30 t abs 03/09/25 release (Protonix) Previous Rx's ?Medication ?Instructions ?Recorded ciprofloxacin HCl 500 mg tablet 500 mg PO BID #14 tabs 03/09/25 (Cipro) pantoprazole 40 mg tablet,delayed 40 mg PO DAILY #30 t abs 03/09/25 release (Protonix) Allergies Allergy/AdvReac Type Severity Reaction Status Date / Time No Known Allergies Allergy Unverified 03/09/25 14:10 General Stated Complaint: Abd Prob MARIETTA: 3 Course Vital Signs Vital signs: Vital Signs Temperature 36.8 C 03/09/25 13:55 Pulse 88 03/09/25 13:55 Respiratory Rate 16 03/09/25 13:55 Blood Pressure 138/68 03/09/25 13:55 Pulse Oximetry 98 03/09/25 13:55 Temperature 36.8 C 03/09/25 14:08 Pulse 88 03/09/25 14:08 Respiratory Rate 16 03/09/25 14:08 Blood Pressure 138/68 03/09/25 14:08 Pulse Oximetry 98 03/09/25 14:08 Pain Level 7 03/09/25 14:08 Medical Decision Making MDM: Summary: Patient presents emergency department complaining of epigastric abdominal pain with episodes of constipation and diarrhea times. Labs were done and his lipase and LFTs are unremarkable. He had a CAT scan of the abdomen pelvis which was read with the radiologist as an livia mesentery or mesenteric panniculitis. He states that this has happened before. He received pantoprazole IV in the emergency department with improvement and he will be discharged on pantoprazole and ciprofloxacin which at studies show that antacids antibiotics and sometimes steroids help with this. Also advised him to be careful with his diet. [id number] ultrasound of the right upper quadrant and gallbladder showed no stones and no evidence of cholecystitis or gallstones. Data Review Analysis All the data on this patient was reviewed by me including laboratory and imaging studies as well as bedside studies performed by me Independent review of Studies Imaging POCUS and CT scan as reported above Lab: Labs are unremarkable Risk Stratification: Patient with mesenteric panniculitis we treated with antibiotics anti- inflammatories and antacids. Differential Diagnosis: 1. Mesenteric panniculitis 2. Mesenteric adenitis 3. Biliary colic 4. Acute cholecystitis 5. Inflammatory bowel disease Consultants: Shared disposition: Patient stands disposition will follow-up with his PCP Impression: Medical Records Medical records reviewed: Yes I reviewed the patient's medical records. Imaging Data Radiologic Study: Attestation: I personally reviewed and interpreted this imaging study as follows: Imaging: CT Scan Radiologist's impression: Patient Name: Primitivo Rodriguez Unit #: [id number] Loc: ER Ordering Provider: Biju Ledezma M.D. Status: [facility] ER Primary Care Provider: Merry Jacinto Date of Exam: 03/09/25 Sex: M : 1985 Age: 40 Exam(s) a CT:CT abdomen & pelvis w Exam(s) CT ABDOMEN PELVIS W EXAM: CT ABDOMEN PELVIS W CLINICAL HISTORY: epigastric pain TECHNIQUE: Imaging Protocol: Axial computed tomography images with coronal and sagittal reformatted images were created and reviewed. CONTRAST MATERIAL: Intravenous: Omnipaque 350 Contrast volume:100 mL Oral: No COMPARISON: CT CT ABDOMEN PELVIS W from 02/03/[address] ABDOMEN PELVIS W from 01/21/2024 FINDINGS: ABDOMEN: Lung Bases: No acute abnormality. Liver: Normal density. No measurable mass. Portal, Superior Mesenteric, and Splenic Veins: Unremarkable. Gallbladder and Biliary Tract: No radiodense calculus or dilation. Pancreas: Normal density, no abnormal calcifications or inflammatory process. Spleen: Normal. Adrenals: No masses seen. Kidneys: Normal size, contour and axis. No radiodense stones or obstructive uropathy. No masses seen. Abdominal Aorta: Abdominal portion non-dilated. Bowel: No obstruction or bowel wall thickening. There are surgical clips seen in the region of the cecum which may reflect prior appendectomy. No right lower quadrant inflammatory process is seen to suggest an appendicitis. Peritoneal Cavity: There is increased attenuation in the mesentery with relative sparing around the mesenteric vessels. No free air.There is no ascites. Lymph Nodes: Within normal limits. Bones: Within normal limits for the patient's age. Soft Tissues: Unremarkable. PELVIS: Bladder: Symmetric distention, no gross wall thickening. Reproductive Organs: Unremarkable as visualized. Lymph Nodes: Within normal limits. Bones: Within normal limits for the patient's age. IMPRESSION: 1. There is a livia mesentery. Differential considerations include mesenteric panniculitis, idiopathic or a bowel inflammatory process, among other etiologies. Please correlate clinically. 2. No evidence of bowel wall thickening or bowel obstruction. RADIATION DOSE DELIVERED: 883.05mGy.cm Total DLP DATA REPOSITORY: All CT scans at this facility are submitted to the National Radiology Data Registry (NRDR) Dose Index Registry (DIR) with the [employer] (A[employer]). RADIATION OPTIMIZATION: All CT scans at this facility use at least one of these dose optimization techniques: automated exposure control; mA and/or kV adjustment per patient size (includes targeted exams where dose is matched to clinical indication); or iterative reconstruction. [id number]: Total DLP = 0.00 mGy-cm Ordered By: Biju Ledezma M.D. CC: ECG Data Attestation: I personally reviewed and interpreted this ECG (s) as follows: Prior ECG tracings: available for review Interpretation: Heart rate 59 sinus bradycardia no acute ST-T changes PFSH All Active Problems (Updated 03/09/25 @ 17:11 by Biju Ledezma MD) Gastritis (Acute) Mesenteric panniculitis (Acute) Eardrum trauma (Acute) Otorrhea of right ear (Acute) Phimosis (Acute) Closed head injury with brief loss of consciousness (Acute) Concussion (Acute) Perichondritis of auricle (Acute) URI, acute (Acute) Medical History OCD (obsessive compulsive disorder) Internal thrombosed hemorrhoids Recurrent sinusitis Surgical History H/O endoscopic sinus surgery History of nasal septoplasty Social History Smoking/Tobacco Use Status: Current every day Tobacco Type: cigarettes Smoking risk assessment performed?: Yes Alcohol Intake: current Alcohol Intake frequency: a few times a week Alcohol type: beer Drug use: Never Substance use type: does not use Housing: house Do you feel safe at home: Yes Do you feel safe in your relationship?: Yes PAWSS Have you Been Recently Intoxicated or Drunk Within the Last 30 days?: No Have you Ever Experienced Previous Episodes of Alcohol Withdrawal?: No Have you ever Experienced Withdrawal Seizures?: No Have you ever Experienced Delirium Tremens(DT)s?: No Have you ever undergone Alcohol Rehabilitation Treatment (i.e, inpt ot outpatient treatment programs)?: No Have you ever Experienced Blackouts?: No Have you ever Combined Alcohol with other Downers within the last 90 days?: No Have you ever Combined Alcohol with any other Substance of Abuse during the last 90 days?: No Positive Blood Alcohol level on Presentation? [PCS.BAL]: No Evidence of Increased Autonomic Activity (i.e. HR>120, tremor, sweating, agitation, nausea)?: No Result: 0 POCUS Exam (ED) Limited Gallbladder Exam DATE OF EXAM: 03/09/25 TIME OF EXAM: 17:07 PROVIDER THAT PERFORMED THE STUDY: Biju Ledezma IS THIS A REPEAT EXAM DURING THIS ENCOUNTER: No REASON FOR VISIT: Abdominal pain VISUALIZED STRUCTURES: Common bile duct, Gallbladder, Gallbladder wall and Liver PERTINENT FINDINGS/IMPRESSION: No apparent abnormalities DIFFERENTIAL DIAGNOSIS: gallstones, cholecystitis Exam complete Vital Signs & Lab Results Vital Signs Most Recent Vital Signs: Most Recent Vital Signs Temp Pulse Resp BP Pulse Ox 36.8 C 88 16 138/68 98 03/09/25 14:08 03/09/25 14:08 03/09/25 14:08 03/09/25 14:08 03/09/25 14:08 Lab Results 03/09/25 15:15 03/09/25 15:15 Complete Blood Count: 2 WBC, (4.4-10.8) 7.38 10^3/uL Today, 15:15 RBC, (4.36-5.78) 5.11 10^6/uL Today, 15:15 Hgb, (13.5-17.5) 14.2 g/dL Today, 15:15 Hct, (40.0-50.0) 41.1 % Today, 15:15 Plt Count, (130-400) 225 10^3/uL Today, 15:15 Complete Metabolic Panel: 2 Sodium, (136-145) 143 mmol/L Today, 15:15 Potassium, (3.5-5.1) 3.5 mmol/L Today, 15:15 Chloride, (98-107) 108 mmol/L H Today, 15:15 Carbon Dioxide, (20.0-31.0) 27.8 mmol/L Today, 15:15 BUN, (9-23) 17 mg/dL Today, 15:15 Creatinine, (0.73-1.18) 0.81 mg/dL Today, 15:15 Est GFR (CKD-EPI 2020), (mL/min/1.73m2) 106.58 Today, 15:15 Magnesium, (1.6-2.6) 2.1 mg/dL Today, 15:15 Calcium, (8.3-10.6) 8.6 mg/dL Today, 15:15 Albumin, (3.2-5.0) 3.9 g/dL Today, 15:15 Glucose, (74-106) 91 mg/dL Today, 15:15 Liver Function Panel: 2 ALT, (10-49) 62 U/L H Today, 15:15 AST, (<34) 30 U/L Today, 15:15 Cardiac Panel: 2 Troponin I, (<54) 6 ng/L Today Pancreas Panel: 2 Lipase, (<53) 28 U/L Today, 15:15
--- NOTE | 2025-03-09 15:00 | DI.CT_ITS ---
Exam(s) CT ABDOMEN PELVIS W EXAM: CT ABDOMEN PELVIS W CLINICAL HISTORY: epigastric pain TECHNIQUE: Imaging Protocol: Axial computed tomography images with coronal and sagittal reformatted images were created and reviewed. CONTRAST MATERIAL: Intravenous: Omnipaque 350 Contrast volume:100 mL Oral: No COMPARISON: CT CT ABDOMEN PELVIS W from 02/03/[address] ABDOMEN PELVIS W from 01/21/2024 FINDINGS: ABDOMEN: Lung Bases: No acute abnormality. Liver: Normal density. No measurable mass. Portal, Superior Mesenteric, and Splenic Veins: Unremarkable. Gallbladder and Biliary Tract: No radiodense calculus or dilation. Pancreas: Normal density, no abnormal calcifications or inflammatory process. Spleen: Normal. Adrenals: No masses seen. Kidneys: Normal size, contour and axis. No radiodense stones or obstructive uropathy. No masses seen. Abdominal Aorta: Abdominal portion non-dilated. Bowel: No obstruction or bowel wall thickening. There are surgical clips seen in the region of the cecum which may reflect prior appendectomy. No right lower quadrant inflammatory process is seen to suggest an appendicitis. Peritoneal Cavity: There is increased attenuation in the mesentery with relative sparing around the mesenteric vessels. No free air.There is no ascites. Lymph Nodes: Within normal limits. Bones: Within normal limits for the patient's age. Soft Tissues: Unremarkable. PELVIS: Bladder: Symmetric distention, no gross wall thickening. Reproductive Organs: Unremarkable as visualized. Lymph Nodes: Within normal limits. Bones: Within normal limits for the patient's age. IMPRESSION: 1. There is a livia mesentery. Differential considerations include mesenteric panniculitis, idiopathic or a bowel inflammatory process, among other etiologies. Please correlate clinically. 2. No evidence of bowel wall thickening or bowel obstruction. RADIATION DOSE DELIVERED: 883.05mGy.cm Total DLP DATA REPOSITORY: All CT scans at this facility are submitted to the National Radiology Data Registry (NRDR) Dose Index Registry (DIR) with the [employer] ([employer]). RADIATION OPTIMIZATION: All CT scans at this facility use at least one of these dose optimization techniques: automated exposure control; mA and/or kV adjustment per patient size (includes targeted exams where dose is matched to clinical indication); or iterative reconstruction.
--- NOTE | 2025-03-09 15:00 | RT.EKG_ITS ---
APPROVED REPORT Exam: Resting ECG Reason for Exam: epigastric pain Patient Location: E HR:59 bpm ECG Measurements Heart Rate 59 AXIS MA 184 P 12 QRSd 138 QRS -12 QT 418 T 21 QTc 416 Conclusion Sinus bradycardia...rate< 60 IVCD, consider RBBB...QRSd>120mS, terminal axis(90,270) Probable left ventricular hypertrophy...multiple LVH criteria No Occlusion [place]
[2025-03-09 15:22] LABS: Abs Immature Grans 0.02 10^3/uL (0.0-0.06); HCT 41.1 % (40.0-50.0); HGB 14.2 g/dL (13.5-17.5); Immature Grans % 0.3 %; MCH 27.8 pg (27.0-33.0); MCHC 34.5 % (32.0-36.0); MCV 80 fL (80-95); MPV 10.8 fL (8.0-11.0); Platelet Count 225 10^3/uL (130-400); RBC 5.11 10^6/uL (4.36-5.78); RDW 13.0 % (11.8-14.1); RDW-SD 37.7 fL; WBC 7.38 10^3/uL (4.4-10.8)
[2025-03-09] MEDS: Normal Saline 1,000 ML 1000 ML IV (15:23)
[2025-03-09] MEDS: Ondansetron 4 MG/2 ML VIAL IVP (15:24)
[2025-03-09] MEDS: Pantoprazole 40 MG VIAL IVP (15:24)
[2025-03-09] MEDS: Omnipaque 350 MG/ML 100 ML BTL IJ (15:25)
[2025-03-09] MEDS: Normal Saline - Diluent 50 ML VIAL IJ (15:25)
[2025-03-09] MEDS: Normal Saline Flush 10 ML SYR IVP (15:26)
[2025-03-09 15:42] LABS: Lipase 28 U/L (<53); Magnesium 2.1 mg/dL (1.6-2.6)
[2025-03-09 15:43] LABS: Troponin I 6 ng/L (<54)
[2025-03-09 15:44] LABS: ALT 62 U/L (10-49); AST 30 U/L (<34); Albumin 3.9 g/dL (3.2-5.0); Alkaline Phosphatase 69 U/L (46-116); Anion Gap 7.2 mmol/L (3-11); BUN 17 mg/dL (9-23); Bilirubin, Total 0.50 mg/dL (0.2-1.2); CO2 27.8 mmol/L (20.0-31.0); Calcium 8.6 mg/dL (8.3-10.6); Chloride 108 mmol/L (98-107); Glucose 91 mg/dL (74-106); Potassium 3.5 mmol/L (3.5-5.1); Sodium 143 mmol/L (136-145); Total Protein 6.8 g/dL (5.7-8.2)
== END 2025-03-09 17:36 | disposition home or self-care (01) ==
PROVIDERS: Emergency Provider Emergency Medicine Emergency Medical Services; PCP Family Medicine
DX: K52.9 Noninfective gastroenteritis and colitis, unspecified (principal); K65.4 Sclerosing mesenteritis
CPT/HCPCS: 99284; 99285; 96374; 96375; 76705; 80053; 83690; 93005; 96361; 74177; 83735; 84484; 85025; 93010; J2405; J2470; J3490